=== PATIENT | female | born 1995 | race Caucasian/White ===

== ENCOUNTER → 2020-06-23 14:52 | Outpatient (BNVA) | payer MEDICAID, SELFPAY | PROVIDERS: Visit Provider Advanced Practice Midwife | DX: Z34.90 Encounter for supervision of normal pregnancy, unspecified, unspecified trimester (principal) | CPT/HCPCS: 99211 ==

== ENCOUNTER 2020-06-23 15:41 | Emergency (ER) | payer MEDICAID, SELFPAY ==
[2020-06-23 16:00] VITALS: BP 119/88; PULSE 87; RESP 16; TEMP 37; O2SAT 98; BMI 25.7
[2020-06-23 16:26] VITALS: BP 115/70; PULSE 78; RESP 18; TEMP 36.8; O2SAT 98
--- NOTE | 2020-06-23 16:47 | ED_ITS ---
HPI - Nausea/Vomiting/Diarrhea General Chief complaint: Nausea/Vomiting/Diarrhea Stated complaint: Dehydrated Time Seen by Provider: 06/23/20 16:26 Source: patient Mode of arrival: ambulatory History of Present Illness HPI Narrative: Patient is a 25-year-old female who states she is approximately 4 months , LMP was sometime in January or March, complaining of morning sickness all day long for the last few weeks. States she was able to keep down a piece of bread last night, that was her last meal. She called her OBGYN who recommended she come to the emergency department for fluid and an evaluation. She denies any bleeding at cramping or abdominal pain. She states this is her 12th , she has 5 living children, 3 miscarriages, 3 abortions and and the current . denies fevers chills weakness. Related Data Allergies Allergy/AdvReac Type Severity Reaction Status Date / Time No Known Drug Allergies Allergy Unknown UNKNOWN Unverified 05/19/20 16:20 [NO KNOWN DRUG ALLERGIES] Review of Systems Review of Systems: Yes all other systems are reviewed and are negative [facility] Social History Social History Smoking Status: Never smoker Use of substances other than those prescribed or required for medical reasons: No Advance Directives: No Advance Directives Information Provided: No Physical Exam Vital Signs: Vital Signs: Vital Signs Temp Pulse Resp BP Pulse Ox 06/23/20 16:26 98.2 F 78 18 115/70 98 06/23/20 16:00 98.6 F 87 16 119/88 98 Body Mass Index 25.7 Const: General: cooperative, healthy appearing, comfortable, no acute distress and well developed Orientation/consciousness: patient oriented x3 HENMT: Head: Yes normal to inspection Eyes: General: appearance normal, both eyes and all related structures Neck: Neck: Yes normal visual inspection, Yes full ROM and Yes supple Resp: Effort & Inspection: normal respiratory effort and able to speak in complete sentences GI: Inspection: Yes normal to inspection Palpation (GI): Soft to palpation and nontender Auscultation: normal bowel sounds Skin: General skin exam: no rashes or lesions noted Neuro: General: patient oriented x3 Extrem: General: Yes normal to inspection Psych: Appearance: grossly normal Course Course Course Narrative: patient is a 25-year-old female who is approximately 18 weeks , this is her 12th , [id number], complaining of nausea vomiting and diarrhea. Was able to see 1 piece of bread last night. All of patient's labs are WNL, gave her some Raglan and 1 L IV fluids and she states she feels a lot better and is ready to go home. Her OBGYN did send a prescription in for her for some vitamin B6 and B12. reviewed signs and symptoms which are concerning enough to return to the ER. Patient understands and agrees with plan. MDM - Nausea/Vomiting/Diarrhea Lab Data Result diagrams: 06/23/20 17:05 06/23/20 17:05 Labs: Lab Results 06/23/20 06/23/20 06/23/20 Range/Units 17: 17:05 17:05 WBC 7.5 (4.8-10.8) X10*3/uL RBC 4.57 (4.20-5.50) X10*6/uL Hgb 13.2 (12.0-16.0) g/dl Hct 38.6 (37-47) % MCV 84.5 (80-98) fL MCH 28.9 (27.0-33.0) pg MCHC 34.2 (31.0-35.0) g/dl RDW 12.0 (11.0-16.0) % Plt Count 197 (160-400) X10*3/uL MPV 10.2 (9.4-12.3) fL Immature Gran % (Auto) 0.4 (0.0-0.4) % Neut % (Auto) 74.1 H (45-73) % Lymph % (Auto) 17.1 L (20-40) % Sevier % (Auto) 6.4 (2-11) % Eos % (Auto) 1.6 (0-4) % Baso % (Auto) 0.4 (0-2) % Lymph # (Auto) 1.3 (1.2-4.9) X10*3/uL Sevier # (Auto) 0.5 (0.1-1.2) X10*3/uL Eos # (Auto) 0.1 (0.0-0.4) X10*3/uL Baso # (Auto) 0.0 (0.0-0.2) X10*3/uL Abs Immat Gran (auto) 0.03 (0.00-0.03) X10*3/uL Absolute Neuts (auto) 5.5 (2.0-8.3) X10*3/uL Absolute Nucleated RBC 0.000 (0.0-0.012) X10*3/uL Nucleated RBC % (auto) 0.0 (0.0-0.2) /100WBC Sodium 138 (135-145) mmol/L Potassium 4.1 (3.3-5.1) mmol/l Chloride 104 (96-108) mmol/L Carbon Dioxide 25 (22-29) mmol/L Anion Gap 13 (12-20) BUN 8 L (9-16) mg/dL Creatinine 0.59 (0.5-1.4) mg/dL Estim Creat Clear Calc 140.6 Estimated GFR > 60 Random Glucose 83 (60-115) mg/dL Calcium 9.2 (8.4-10.2) mg/dL Magnesium 1.9 (1.6-2.6) mg/dL Discharge Plan Discharge Clinical Impression: Nausea and vomiting during prior to 22 weeks gestation, test positive Patient Disposition: Home, Self-Care Instructions: Nausea and Vomiting in (ED)
[2020-06-23] MEDS: 0.9 % Sodium Chloride 1,000 ML 999 ML IVCONT (17:07)
[2020-06-23 17:13] LABS: MANUAL DIFF FLAG NO
[2020-06-23 17:14] LABS: Basophils Percent Auto 0.4 % (0-2); Eosinophils Absolute Auto 0.1 X10*3/uL (0.0-0.4); Eosinophils Percent Auto 1.6 % (0-4); Hematocrit 38.6 % (37-47); Hemoglobin 13.2 g/dl (12.0-16.0); Imm Gran Abs Auto 0.03 X10*3/uL (0.00-0.03); Imm Gran Pct Auto 0.4 % (0.0-0.4); Lymphocytes Absolute Auto 1.3 X10*3/uL (1.2-4.9); Lymphocytes Percent Auto 17.1 % (20-40); Mean Corpuscular HGB Conc 34.2 g/dl (31.0-35.0); Mean Corpuscular Hemoglobin 28.9 pg (27.0-33.0); Mean Corpuscular Volume 84.5 fL (80-98); Mean Platelet Volume 10.2 fL (9.4-12.3); Monocytes Absolute Auto 0.5 X10*3/uL (0.1-1.2); Monocytes Percent Auto 6.4 % (2-11); Neutrophils Absolute Auto 5.5 X10*3/uL (2.0-8.3); Neutrophils Percent Auto 74.1 % (45-73); Platelet Count 197 X10*3/uL (160-400); Red Blood Count 4.57 X10*6/uL (4.20-5.50); White Blood Count 7.5 X10*3/uL (4.8-10.8)
[2020-06-23 17:42] LABS: Magnesium 1.9 mg/dL (1.6-2.6)
[2020-06-23 17:43] LABS: Anion Gap 13 (12-20); Blood Urea Nitrogen 8 mg/dL (9-16); Calcium 9.2 mg/dL (8.4-10.2); Carbon Dioxide 25 mmol/L (22-29); Chloride 104 mmol/L (96-108); Creatinine Clr Calc Pharmacy 140.6; Estimated Glomerular Filt Rate > 60; Glucose Random 83 mg/dL (60-115); Potassium 4.1 mmol/l (3.3-5.1); Sodium 138 mmol/L (135-145)
[2020-06-23] MEDS: Metoclopramide HCl 10 MG/2 ML VIAL IVPUSH (17:47)
--- NOTE | 2020-06-23 17:47 | PC.NURSE ---
MEDICATED FOR NAUSEA
[2020-06-23 18:41] VITALS: BP 111/65; PULSE 81; RESP 12; TEMP 36.6
== END 2020-06-23 18:51 | disposition home or self-care (01) ==
PROVIDERS: Physician Assistant; Emergency Provider Emergency Medicine
DX: O21.0 Mild hyperemesis gravidarum (principal); Z3A.22 22 weeks gestation of pregnancy; Z37.9 Outcome of delivery, unspecified
CPT/HCPCS: 36415; 80048; 83735; 84702; 85025; 96361; 96374; 99284; J2765

== ENCOUNTER 2020-06-27 17:20 | Emergency (ER) | payer MEDICAID, SELFPAY ==
[2020-06-27 21:02] VITALS: BP 132/81; PULSE 88; RESP 16; TEMP 37.2; O2SAT 99; BMI 25.7
--- NOTE | 2020-06-27 22:43 | ED.NAVMDI ---
HPI - Nausea/Vomiting/Diarrhea General Chief complaint: Nausea/Vomiting/Diarrhea Stated complaint: vomiting,dehydration Time Seen by Provider: 06/27/20 22:41 History of Present Illness HPI Narrative: Patient is a 25-year-old female G12 T6 with 3 miscarriages and 2 elective terminations. Presented today with having nausea, vomiting. She is currently . Patient claims her last menstrual period is about 3 months ago. Patient denies any fever or chills. Denies any coughing any congestion any upper respiratory symptoms. Denies any vaginal bleeding. Patient is due for an ultrasound on Saturday. Related Data Previous Rx's Medication Instructions Recorded doxylamine-pyridoxine (vit B6) 1 tab PO BID #20 tab 06/28/20 [Diclegis] Allergies Allergy/AdvReac Type Severity Reaction Status Date / Time No Known Drug Allergies Allergy Unknown UNKNOWN Verified 06/27/20 21:06 [NO KNOWN DRUG ALLERGIES] Review of Systems Review of Systems: No fever no chills no cough no congestion or upper respiratory symptoms Constitutional: No Weight loss, No Fever, No Chills, No Night Sweats, No Fatigue, No Malaise ENT/Mouth: No Hearing loss, No Ear Pain, No Nasal Congestion, No Sinus Pain, No Hoarseness, No sore throat, No Rhinorrhea, No Swallowing Difficulty Eyes: No Eye Pain, No Swelling, No Redness, No Foreign Body, No Discharge, No Vision Changes Cardiovascular: No Chest Pain, No SOB, No Dyspnea on Exertion, No Orthopnea, No Edema, No Palpitations Respiratory: No Cough, No Sputum, No Wheezing, No Smoke Exposure, No Dyspnea Gastrointestinal: Positive nausea, vomiting. No diarrhea Genitourinary: no irregular bleeding, No Dysuria, No Urinary Frequency, No Hematuria, No Urinary Incontinence, No Urgency, No Flank Pain, No Urinary Flow Changes, No Hesitancy Musculoskeletal: No joint pain, No Myalgias, No Joint Swelling Skin: No Skin Lesions, No rash Neuro: No Weakness, No Numbness, No Paresthesias, No Loss of Consciousness, No Dizziness, No Headache Psych: No Anxiety/Panic, No Depression, No SI/HI/AH/VH, No Social Issues, Heme/Lymph: No Bruising, No Bleeding,No Lymphadenopathy Endocrine: No Polyuria, No Polydipsia, No Temperature Intolerance [facility] Past Medical History Attestation statement: The following information was validated with the patient. : 12 Para: 6 Total number of abortions (spontaneous and elective): 5 Social History Social History Alcohol intake: never Smoking Status: Never smoker Smoked in Last 30 Days: No Use of substances other than those prescribed or required for medical reasons: No Advance Directives: No Advance Directives Information Provided: Yes Physical Exam Vital Signs: Vital Signs: Vital Signs Temp Pulse Resp BP Pulse Ox 06/28/20 00:00 98.2 F 85 16 115/52 L 99 06/27/20 21:02 98.9 F 88 16 132/81 99 Body Mass Index 25.7 Appearance: Alert. Oriented X3. No acute distress. Eyes: Pupils equal, round and reactive to light. ENT: Pharynx normal. Neck: Normal inspection. Neck supple. No lymph nodes noted. No crepitus CVS: Normal heart rate and rhythm. Pulses normal. Normal S1 and S2 Respiratory: No respiratory distress. Breath sounds normal. No Wheezing. No rales Abdomen: Soft and nontender. No rigidity. No distention. good BS x4 Skin: Skin warm and dry. Normal skin color. Normal skin turgor. Extremities: No lower extremity edema. Neurovascular intact to all extremities. No Lacerations. No Rash Neuro: Oriented X 3. No motor deficit. No sensory deficit. Moving all extermities. No slurred speech MDM - Nausea/Vomiting/Diarrhea MDM Narrative Medical decision making narrative: Patient's is at least 14-16 weeks. Unlikely to be ectopic . Patient was in the emergency department recently for the same. Will give IV fluids. Will check electrolytes. We will monitor carefully. After IV fluid patient's symptom improved dramatically. Now tolerate p.o.. Will discharge patient home. Currently in stable condition. Lab Data Result diagrams: 06/27/20 23:29 06/27/20 23:29 Labs: Lab Results 06/27/20 06/27/20 Range/Units 23:29 23:29 WBC 8.1 (4.8-10.8) X10*3/uL RBC 4.37 (4.20-5.50) X10*6/uL Hgb 12.6 (12.0-16.0) g/dl Hct 36.9 L (37-47) % MCV 84.4 (80-98) fL MCH 28.8 (27.0-33.0) pg MCHC 34.1 (31.0-35.0) g/dl RDW 11.9 (11.0-16.0) % Plt Count 201 (160-400) X10*3/uL MPV 10.2 (9.4-12.3) fL Immature Gran % (Auto) 0.2 (0.0-0.4) % Neut % (Auto) 73.9 H (45-73) % Lymph % (Auto) 18.8 L (20-40) % Dundy % (Auto) 6.0 (2-11) % Eos % (Auto) 0.9 (0-4) % Baso % (Auto) 0.2 (0-2) % Lymph # (Auto) 1.5 (1.2-4.9) X10*3/uL Dundy # (Auto) 0.5 (0.1-1.2) X10*3/uL Eos # (Auto) 0.1 (0.0-0.4) X10*3/uL Baso # (Auto) 0.0 (0.0-0.2) X10*3/uL Abs Immat Gran (auto) 0.02 (0.00-0.03) X10*3/uL Absolute Neuts (auto) 6.0 (2.0-8.3) X10*3/uL Absolute Nucleated RBC 0.000 (0.0-0.012) X10*3/uL Nucleated RBC % (auto) 0.0 (0.0-0.2) /100WBC Sodium 136 (135-145) mmol/L Potassium 3.6 (3.3-5.1) mmol/l Chloride 103 (96-108) mmol/L Carbon Dioxide 23 (22-29) mmol/L Anion Gap 14 (12-20) BUN 9 (9-16) mg/dL Creatinine 0.57 (0.5-1.4) mg/dL Estim Creat Clear Calc 145.9 Estimated GFR > 60 Random Glucose 91 (60-115) mg/dL Calcium 9.2 (8.4-10.2) mg/dL Total Bilirubin 1.0 (0.0-1.0) mg/dL Direct Bilirubin 0.4 (0.0-0.5) mg/dL AST 15 (5-31) U/L ALT 11 (0-31) U/L Alkaline Phosphatase 44 (39-117) U/L Total Protein 6.8 (6.5-8.0) g/dL Albumin 4.5 (3.5-5.0) g/dL Lipase 7 L (8-78) U/L Discharge Plan Discharge Clinical Impression: Hyperemesis gravidarum Patient Disposition: Home, Self-Care Instructions: Hyperemesis Gravidarum (ED) Additional Instructions: Please keep to a bland diet lots of clear liquid. Saltine crackers. Close follow-up with your OBGYN. Prescriptions: New doxylamine-pyridoxine (vit B6) [Diclegis] 10-10 mg tablet,delayed release (DR/EC) 1 tab PO BID Qty: 20 RF: 0 Referrals: Physician,Unknown [Primary Care Provider] - 2 days (Please follow-up with your OBGYN in the next 2 days.)
[2020-06-27] MEDS: 0.9 % Sodium Chloride 1,000 ML 999 ML IVCONT ×2 (23:31→23:32)
[2020-06-27 23:36] LABS: Basophils Percent Auto 0.2 % (0-2); Eosinophils Absolute Auto 0.1 X10*3/uL (0.0-0.4); Eosinophils Percent Auto 0.9 % (0-4); Hematocrit 36.9 % (37-47); Hemoglobin 12.6 g/dl (12.0-16.0); Imm Gran Abs Auto 0.02 X10*3/uL (0.00-0.03); Imm Gran Pct Auto 0.2 % (0.0-0.4); Lymphocytes Absolute Auto 1.5 X10*3/uL (1.2-4.9); Lymphocytes Percent Auto 18.8 % (20-40); MANUAL DIFF FLAG NO; Mean Corpuscular HGB Conc 34.1 g/dl (31.0-35.0); Mean Corpuscular Hemoglobin 28.8 pg (27.0-33.0); Mean Corpuscular Volume 84.4 fL (80-98); Mean Platelet Volume 10.2 fL (9.4-12.3); Monocytes Absolute Auto 0.5 X10*3/uL (0.1-1.2); Neutrophils Percent Auto 73.9 % (45-73); Platelet Count 201 X10*3/uL (160-400); Red Blood Count 4.37 X10*6/uL (4.20-5.50); Red Cell Distribution Width 11.9 % (11.0-16.0); White Blood Count 8.1 X10*3/uL (4.8-10.8)
[2020-06-28] VITALS: BP 115/52; PULSE 85; RESP 16; TEMP 36.8; O2SAT 99
[2020-06-28 00:04] LABS: Alanine Aminotransferase 11 U/L (0-31); Albumin Level 4.5 g/dL (3.5-5.0); Alkaline Phosphatase 44 U/L (39-117); Anion Gap 14 (12-20); Aspartate Amino Transferase 15 U/L (5-31); Bilirubin Direct 0.4 mg/dL (0.0-0.5); Blood Urea Nitrogen 9 mg/dL (9-16); Calcium 9.2 mg/dL (8.4-10.2); Carbon Dioxide 23 mmol/L (22-29); Chloride 103 mmol/L (96-108); Creatinine Clr Calc Pharmacy 145.9; Estimated Glomerular Filt Rate > 60; Glucose Random 91 mg/dL (60-115); Lipase 7 U/L (8-78); Potassium 3.6 mmol/l (3.3-5.1); Sodium 136 mmol/L (135-145); Total Protein 6.8 g/dL (6.5-8.0)
== END 2020-06-28 02:59 | disposition home or self-care (01) ==
PROVIDERS: Emergency Provider Emergency Medicine Emergency Medical Services
DX: O21.0 Mild hyperemesis gravidarum (principal); Z3A.14 14 weeks gestation of pregnancy
CPT/HCPCS: 36415; 80048; 80076; 83690; 85025; 96360; 99284

== ENCOUNTER 2020-07-01 13:22 | Outpatient (REF) | payer MEDICAID, SELFPAY ==
--- NOTE | 2020-07-01 13:32 | US_ITS ---
EXAMINATION: OBSTETRICAL ULTRASOUND, FIRST TRIMESTER HISTORY: 25-year-old with unknown LMP NT screening COMPARISON: 12/01/2019 TECHNIQUE: Real time transabdominal imaging with color and M-mode Doppler. FINDINGS: A single, live IUP CRL of 73.2 mm c/w 13.4wks is noted. Heart Rate: 147 beats per minute. Normal yolk sac seen. NT was 1.3.mm. NB Present The embryo appears sonographically wnl for this GA. Both maternal ovaries are seen and appear normal. GESTATIONAL AGE: 1. Established GA: N/A wks 2. GA from [facility]: 13.4 wks ESTIMATED DATE OF DELIVERY: 1. Established CHANA: N/A 2. CHANA from [facility]: 01/02/2021 US/US OB 1T nuc measure IMPRESSION: 1. A single live IUP 2. CRL consistent with 13.4 weeks 3. NT of 1.3 mm MFM Consultation: I reviewed the ultrasound findings along with significance of NT measurement. The NT of less than 3mm is generally reassuring. However, the sensitivity for T21 detection is only 60%. I reviewed the availability of serum aneuploidy screening which includes cell-free DNA and placental protein based tests. I discussed the sensitivity, false-positive rate, and other limitations associated with each test. I also reviewed the availability of invasive diagnostic tests that are associated small but definite risk of miscarriage. We also reviewed the differences between screening tests and diagnostic tests. After our discussion, she opted for the First trimester screening that is based on cell-free DNA or non-invasive testing (NIPT). The result will be faxed to your office in approximately 7 days. A follow up at 18-20 weeks for survey has been scheduled. Thank you very much for this referral. Majority of this visit was spent reviewing her care and counselling her in face to face time: Time spent 20 min.
== END 2020-07-01 13:23 | disposition home or self-care (01) ==
LOC: HO.US 13:22
PROVIDERS: Visit Provider Advanced Practice Midwife
DX: Z32.01 Encounter for pregnancy test, result positive (principal)
CPT/HCPCS: 76813

== ENCOUNTER → 2020-07-25 14:09 | Outpatient (BNVA) | payer MEDICAID, SELFPAY | PROVIDERS: Visit Provider Advanced Practice Midwife | DX: Z76.89 Persons encountering health services in other specified circumstances (principal) ==

== ENCOUNTER 2020-08-02 12:41 | Outpatient (REF) | payer MEDICAID, SELFPAY ==
[2020-08-02 14:42] LABS: MANUAL DIFF FLAG NO
[2020-08-02 14:44] LABS: Basophils Percent Auto 0.3 % (0-2); Eosinophils Absolute Auto 0.2 X10*3/uL (0.0-0.4); Eosinophils Percent Auto 1.5 % (0-4); Hematocrit 36.2 % (37-47); Hemoglobin 12.4 g/dl (12.0-16.0); Imm Gran Abs Auto 0.08 X10*3/uL (0.00-0.03); Imm Gran Pct Auto 0.8 % (0.0-0.4); Lymphocytes Absolute Auto 1.4 X10*3/uL (1.2-4.9); Lymphocytes Percent Auto 14.6 % (20-40); Mean Corpuscular HGB Conc 34.3 g/dl (31.0-35.0); Mean Corpuscular Volume 87.7 fL (80-98); Mean Platelet Volume 10.5 fL (9.4-12.3); Monocytes Absolute Auto 0.5 X10*3/uL (0.1-1.2); Monocytes Percent Auto 5.3 % (2-11); Neutrophils Absolute Auto 7.7 X10*3/uL (2.0-8.3); Neutrophils Percent Auto 77.5 % (45-73); Platelet Count 221 X10*3/uL (160-400); Red Blood Count 4.13 X10*6/uL (4.20-5.50); Red Cell Distribution Width 13.9 % (11.0-16.0); White Blood Count 9.9 X10*3/uL (4.8-10.8)
[2020-08-02 15:18] LABS: Alanine Aminotransferase 7 U/L (0-31); Albumin Level 4.1 g/dL (3.5-5.0); Alkaline Phosphatase 53 U/L (39-117); Anion Gap 12 (12-20); Aspartate Amino Transferase 10 U/L (5-31); Bilirubin Total 0.7 mg/dL (0.0-1.0); Blood Urea Nitrogen 7 mg/dL (9-16); Carbon Dioxide 24 mmol/L (22-29); Chloride 103 mmol/L (96-108); Estimated Glomerular Filt Rate > 60; Glucose Random 75 mg/dL (60-115); Potassium 4.2 mmol/l (3.3-5.1); Sodium 135 mmol/L (135-145); Total Protein 6.7 g/dL (6.5-8.0); Uric Acid 2.9 mg/dL (2.4-5.7)
[2020-08-02 15:54] LABS: Protein/Creatinine Ratio, Ur 0.09 (<0.2); Total Protein Urine Random 9 mg/dL (<12)
[2020-08-02 15:55] LABS: Amphetamine Screen Urine Not Detected (Not Detect); Barbiturates, Urine Not Detected (Not Detect); Benzodiazepines Screen Urine Not Detected (Not Detect); Cannabinoid Screen Urine Not Detected (Not Detect); Cocaine Screen Urine Not Detected (Not Detect); Opiate Screen Urine Not Detected (Not Detect); Phencyclidine Screen Urine Not Detected (Not Detect)
[2020-08-03 07:53] LABS: HBsAGNum1 0.22 S/CO (0.00-0.99); HIV AB/AG Nonreactive (Nonreactive); HIV Num 1 0.21 S/CO (0.00-0.99); Hepatitis B Surface Antigen Negative (Negative); ~HepC Num1 0.09 S/CO (0.00-0.79); ~Hepatitis C Antibody Nonreactive (Nonreactive)
[2020-08-03 08:56] LABS: Syphilis Screen Nonreactive (Nonreactive)
[2020-08-03 23:08] LABS: Rubella IgG Antibody 2.07 index
[2020-08-08 15:09] LABS: CT PCR NOT DETECTED (Not Detect.); NG PCR NOT DETECTED (Not Detect.)
== END 2020-08-02 12:42 | disposition home or self-care (01) ==
LOC: HO.LAB 12:41
PROVIDERS: Absent Provider Advanced Practice Midwife; Visit Provider Advanced Practice Midwife
DX: O26.899 Other specified pregnancy related conditions, unspecified trimester (principal); K42.9 Umbilical hernia without obstruction or gangrene; Z64.1 Problems related to multiparity
CPT/HCPCS: 36415; 80053; 80307; 84156; 84550; 85025; 86762; 86780; 86787; 86803; 86850; 87086; 87340; 87389; 87491; 87591

== ENCOUNTER 2020-08-12 12:04 | Outpatient (REF) | payer MEDICAID, SELFPAY ==
--- NOTE | 2020-08-12 12:12 | US_ITS ---
EXAMINATION: US OBSTETRICAL CLINICAL INFORMATION: 25-year-old at 19.4 weeks of gestation Suspected anomaly COMPARISON: 07/01/2020 TECHNIQUE: Real-time transabdominal ultrasound was performed using C1-5 megahertz transducer. FINDINGS: A single, active, fetus is seen in vertex presentation. The placenta is anterior without previa, and the amniotic fluid volume is wnl. MEASUREMENTS: 1. Biparietal Diameter: 4.7 cm; 20.2 wks 2. Occipital Frontal Diameter: 6.3 cm 3. Head Circumference: 17.5 cm; 20.1 wks 4. Abdominal Circumference: 15.7 cm; 20.6 wks 5. Femur Length: 3.2 cm; 20.0 wks 6. Humerus Length: 2.99 cm; 19.6 wks 7. Tibia Length: 2.8 cm; 20.1 wks 8. Ulna Length: 2.8 cm; 20.1 wks 9. Lateral ventricle: 0.63 cm 10. Cerebellum: 1.99 cm; 20.2 wks 11. Cisterna Magna: 0.38 cm 12. Nuchal Fold: 2.93 mm 13. Heart Rate: 135 beats per minute Rt ovary: normal Lt ovary: normal Cervical length 4.2 cm on T/A. GESTATIONAL AGE: 1. Established GA: 19.4 wks 2. GA from [facility]: 20.3 wks ESTIMATED DATE OF DELIVERY: 1. Established CHANA: 01/02/2021 2. CHANA from [facility]: 12/27/2020 ANATOMY: Isolated EIF. The visualized anatomy includes but not limited to: 1. Cranium: Normal 2. Intracranial anatomy: cavum septum pellucidi, lateral ventricles, choroid plexus, cerebellum, posterior fossa, third and fourth ventricles. 3. face: orbits, lip/palate, profile, nasal bone 4. Heart: four-chamber view of the heart, ventricular septum, foramen ovale, pulmonary vein, left and right outflow tracts, three-vessel view, 3 vessel trachea view, aortic and ductal arches, situs.. 5. Diaphragm: Normal 6. Abdominal wall: Normal 7. Cord Insertion: Normal 8. Spine: Cervical, thoracic, lumbar, sacral. 9. Stomach: Normal size and shape 10. Right Kidney: Normal 11. Left Kidney: Normal 12. 3 vessel cord: Normal 13. Upper extremity: Open hands, fifth digit. 14. Lower extremity: Tibia, fibula, bilateral feet. 15. Bladder: Normal 16. Genitalia: Male, patient aware US/US OB /maternal detail IMPRESSION: 1. Single, living, intrauterine with appropriate biometry. 2. Isolated EIF. Otherwise normal survey. DISCUSSION: I reviewed the association between Down syndrome and EIF. The likelihood ratio is 1:2. In the setting of low risk NIPT, isolated EIF is considered a normal variant. She had the low risk N IPT at approximately 13 weeks of gestation. Aside from its association with Down syndrome, the clinical significance of EIF is unclear. We discussed the limitations of ultrasound in diagnosing aneuploidy and other congenital abnormalities. I reviewed the differences between screening test and diagnostic test. Amniocentesis was discussed and declined. She was informed that the baseline incidence of congenital abnormalities is approximately 3-5%. Not all these conditions are diagnosable in utero. RECOMMENDATIONS: 1. Further ultrasound has not been scheduled today. f/u as clinically indicated. Thank you for allowing me to participate in her care. Visiting time 40 minutes. Majority of this visit was spent reviewing and discussing her care.
== END 2020-08-12 12:05 | disposition home or self-care (01) ==
LOC: HO.US 12:04
PROVIDERS: Visit Provider Advanced Practice Midwife
DX: Z34.90 Encounter for supervision of normal pregnancy, unspecified, unspecified trimester (principal); Z36.3 Encounter for antenatal screening for malformations; Z3A.19 19 weeks gestation of pregnancy
CPT/HCPCS: 76811

== ENCOUNTER → 2020-09-09 11:23 | Outpatient (BNVA) | payer MEDICAID, SELFPAY | PROVIDERS: Visit Provider Advanced Practice Midwife | DX: Z76.89 Persons encountering health services in other specified circumstances (principal) | CPT/HCPCS: 99212 ==

== ENCOUNTER → 2020-10-12 11:07 | Outpatient (BNVA) | payer MEDICAID, SELFPAY | PROVIDERS: Visit Provider Advanced Practice Midwife | DX: Z34.80 Encounter for supervision of other normal pregnancy, unspecified trimester (principal); K42.9 Umbilical hernia without obstruction or gangrene; Z64.1 Problems related to multiparity | CPT/HCPCS: 81003; 90471; 90715; 99212 ==

== ENCOUNTER 2020-11-22 12:57 | Outpatient (REF) | payer MEDICAID, SELFPAY ==
[2020-11-22 15:28] LABS: Hematocrit 35.8 % (37-47); Hemoglobin 11.8 g/dl (12.0-16.0); Mean Corpuscular Hemoglobin 29.2 pg (27.0-33.0); Mean Corpuscular Volume 88.6 fL (80-98); Mean Platelet Volume 11.8 fL (9.4-12.3); Platelet Count 174 X10*3/uL (160-400); Red Blood Count 4.04 X10*6/uL (4.20-5.50); Red Cell Distribution Width 12.9 % (11.0-16.0); White Blood Count 9.4 X10*3/uL (4.8-10.8)
[2020-11-22 15:31] LABS: Glucose 1 Hour PP 50gm Dose 148 mg/dL (60-140)
[2020-11-23 08:37] LABS: Syphilis Screen Nonreactive (Nonreactive)
[2020-11-23 08:38] LABS: HIV AB/AG Nonreactive (Nonreactive); HIV Num 1 0.06 S/CO (0.00-0.99)
== END 2020-11-22 12:58 | disposition home or self-care (01) ==
LOC: HO.LAB 12:57
PROVIDERS: Visit Provider Advanced Practice Midwife
DX: O09.43 Supervision of pregnancy with grand multiparity, third trimester (principal); Z3A.34 34 weeks gestation of pregnancy
CPT/HCPCS: 36415; 85027; 86780; 87389; 99212

== ENCOUNTER → 2020-12-06 15:23 | Outpatient (BNVA) | payer MEDICAID, SELFPAY | PROVIDERS: Visit Provider Obstetrics & Gynecology | DX: O99.810 Abnormal glucose complicating pregnancy (principal) | CPT/HCPCS: 99212 ==

== ENCOUNTER 2020-12-13 11:25 | Outpatient (REF) | payer MEDICAID, SELFPAY ==
[2020-12-13 12:44] LABS: Glucose Fasting 84 mg/dL (60-99)
[2020-12-13 13:47] LABS: Glucose 1 Hour 156 mg/dL
[2020-12-13 15:27] LABS: Glucose 2 Hour 127 mg/dL
[2020-12-13 15:28] LABS: Glucose 3 Hour 147 mg/dL
== END 2020-12-13 11:26 | disposition home or self-care (01) ==
LOC: HO.LAB 11:25
PROVIDERS: Visit Provider Obstetrics & Gynecology
DX: O09.293 Supervision of pregnancy with other poor reproductive or obstetric history, third trimester (principal); O99.613 Diseases of the digestive system complicating pregnancy, third trimester; K42.9 Umbilical hernia without obstruction or gangrene; Z3A.37 37 weeks gestation of pregnancy
CPT/HCPCS: 36415; 82951; 87081; 87147; 99212

== ENCOUNTER → 2020-12-22 14:46 | Outpatient (BNVA) | payer MEDICAID, SELFPAY | PROVIDERS: Visit Provider Obstetrics & Gynecology | DX: O09.43 Supervision of pregnancy with grand multiparity, third trimester (principal); O26.843 Uterine size-date discrepancy, third trimester; Z3A.38 38 weeks gestation of pregnancy | CPT/HCPCS: 99212 ==

== ENCOUNTER → 2021-02-09 14:06 | Outpatient (BNVA) | payer MEDICAID, SELFPAY | PROVIDERS: Visit Provider Surgery | DX: K42.9 Umbilical hernia without obstruction or gangrene (principal) | CPT/HCPCS: 99212 ==

== ENCOUNTER 2021-02-22 10:03 | Day surgery (SDC) | payer MEDICAID, SELFPAY ==
--- NOTE | 2021-02-20 14:42 | HO.ANESPROP2 ---
HPI - Anesthesia Eval Consult details Narrative: 26yo F for Hernia Repair Umbilical with Mesh h/o umbilical hernia repair 2017 [facility] Active Problems Active Problems: All Active Problems (Updated 12/22/20 @ 15:30 by Shant Joseph MD) Suspected macroscopic fetus (Acute) Grand multipara (Acute) Umbilical hernia (Acute) (Acute) test positive (Acute) Past Medical History Medical History Grand multipara Umbilical hernia Family History Family History Mother No problems noted. Father Hx of diabetes mellitus Brother Hx of diabetes mellitus Maternal Grandfather No problems noted. Maternal Grandmother No problems noted. Paternal Grandfather No problems noted. Paternal Grandmother No problems noted. Surgical History Surgical History (Updated 02/22/21 @ 10:09 by Joan Bruno RN) H/O umbilical hernia repair (~2017) Hx of hand surgery Social History Social History Household Members: Family and Children Alcohol intake: never Patient Tobacco Use Status: Former Tobacco user Quit Date: 10 yrs ago Use of substances other than those prescribed or required for medical reasons: No Are you DNR?: No Advance Directives: No Advance Directives Information Provided: Yes service: No Current occupational status: unemployed Meds Allergies Allergy/AdvReac Type Severity Reaction Status Date / Time No Known Drug Allergies Allergy Unknown UNKNOWN Verified 02/22/21 10:09 [NO KNOWN DRUG ALLERGIES] Exam Exam Date and Time: February 20, 2021 144 Assessment and Plan Assessment Anesthesia Assessment: Chart Reviewed
[2021-02-22] VITALS (9 sets, daily range): BP systolic 106–119; BP diastolic 65–96; PULSE 66–96; RESP 14–20; TEMP 36.3–37.3; O2SAT 94–99; BMI 25.0
[2021-02-22 10:31] LABS: UPreg QC Valid YES; Urine Pregnancy NEGATIVE (NEGATIVE)
--- NOTE | 2021-02-22 10:34 | MHC.SHP ---
Pre-Procedural Eval Section A The patient is an INPATIENT: No Changes since office visit: Yes Patient answered all questions; No Cold of Flu in the past 2 weeks, No New Medical Problems and No Changes in Medication The History & Physical has been completed within 30 days and I have reviewed it.: Yes Section B Chief Complaint: Umbilical Hernia Allergies: Allergies Allergy/AdvReac Type Severity Reaction Status Date / Time No Known Drug Allergies Allergy Unknown UNKNOWN Verified 02/22/21 10:09 [NO KNOWN DRUG ALLERGIES] Plan Diagnosis/Plan: Unchanged I have reviewed the history and physical and performed a pertinent physical examination on my patient. No changes have occurred unless specified.
[2021-02-22] MEDS: Lactated Ringers 1,000 ML 100 ML IVCONT (10:38)
--- NOTE | 2021-02-22 12:49 | P.CONAN_ITS ---
[facility] Active Problems Active Problems: All Active Problems (Updated 12/22/20 @ 15:30 by Shant Joseph MD) test positive (Acute) (Acute) Suspected macroscopic fetus (Acute) Grand multipara (Acute) Umbilical hernia (Acute) Past Medical History Medical History Grand multipara Umbilical hernia Family History Family History Mother No problems noted. Father Hx of diabetes mellitus Brother Hx of diabetes mellitus Maternal Grandfather No problems noted. Maternal Grandmother No problems noted. Paternal Grandfather No problems noted. Paternal Grandmother No problems noted. Family history of problems with anesthesia: No Surgical History Surgical History (Updated 02/22/21 @ 10:09 by Joan Bruno RN) H/O umbilical hernia repair (~2016) Hx of hand surgery History of Problems with Anesthesia: No Social History Social History Household Members: Family and Children Alcohol intake: never Patient Tobacco Use Status: Former Tobacco user Quit Date: 10 yrs ago Use of substances other than those prescribed or required for medical reasons: No Are you DNR?: No Advance Directives: No Advance Directives Information Provided: Yes service: No Current occupational status: unemployed Meds Allergies Allergy/AdvReac Type Severity Reaction Status Date / Time No Known Drug Allergies Allergy Unknown UNKNOWN Verified 02/22/21 10:09 [NO KNOWN DRUG ALLERGIES] Active Medications: Current Medications Generic Name Dose Route Start Last Admin Trade Name Hughq PRN Reason Stop Dose Admin Lactated Ringer's 1,000 mls @ 100 mls/hr 02/22/21 10:15 02/22/21 10:38 Lr IVCONT 100 mls/hr .Q10H JAIRO Administration Home Medications Medication Instructions Recorded Confirmed Last Taken Type No Known Home Meds 02/22/21 02/22/21 Unknown History Exam Exam Date and Time: February 22, 2021 1249 Height,Weight and Vital Signs: Height 5 ft 5 in Weight 68.039 kg Last Vital Signs Temp 97.4 F 02/22/21 10:16 Pulse 95 02/22/21 10:16 Resp 15 02/22/21 10:16 BP 107/75 02/22/21 10:16 Pulse Ox 98 02/22/21 10:16 Pertinent Lab Results Pertinent Lab Results: Laboratory Tests 02/22/21 10:15 Urine Test NEGATIVE Airway Mallampati Class: I TM Dist: >3cm Neck ROM: Full Loose/Missing/Broken Teeth: No Assessment and Plan Assessment Anesthesia Assessment: Anesthesia Plan Discussed and Chart Reviewed Final Anesthetic Review NPO: Yes ASA Class: I Final Preanesthetic Review: No Changes in Pt Med Stat, Meds/Allgs Chart Reviewed, Consent Obtained/Reviewed and Anes Risks/Benef Reviewed Patient Risk: Low Procedure Risk: Low Anesthetic Plan Anesthetic Plan: GA and Agree w/ Assess. and Plan Disposition: Standard PACU
--- NOTE | 2021-02-22 13:29 | P.OP_ITS ---
Operative Note Operative Note Date of Service: 02/22/21 Narrative: Preoperative diagnosis: Umbilical hernia Postoperative diagnosis: Same Procedure: Repair of umbilical hernia with mesh Surgeon: Paramjit Garcia MD [place] Attacher: No physician Anesthesia: General LMA Indications for procedure: 26-year-old female with enlarging umbilical hernia Operative findings: Umbilical hernia repaired with a 6.4 cm round Ventralex mesh Specimen: None Estimated blood loss: 5 mL Complications: None Procedure details: Patient was brought to the OR and placed in a supine position. After administering general anesthesia the patient's abdomen was prepped with ChloraPrep and draped in a sterile fashion. Surgical time-out was called the consent confirmed. Patient received preoperative antibiotics and Venodyne boots were in place. Local anesthesia consisting of 0.25% Sensorcaine with epinephrine was infiltrated in the midline around the umbilicus. Curvilinear incision was then made with a scalpel in the midline down through the subcutaneous tissue and up to the hernia sac. The hernia sac was then dissected down to the fascial edge. The fascial edge was incised using electrocautery. Hernia sac was then reduced into the abdominal cavity. A preperitoneal space was then created below the fascia using both blunt and sharp dissection. Hemostasis was assured using electrocautery. A 6.4 cm round Ventralex mesh was then obtained. This was deployed in the preperitoneal space. The mesh was secured in place using 1 Tycron sutures. Fascia was then closed over the mesh using [id number] 1 Tycron sutures. Wounds were irrigated and suctioned dry. Skin was attached to the fascia using a 3-0 Polysorb suture. Dermis was reapproximated using interrupted 3-0 Polysorb sutures. Skin was closed using a running subcuticular 4-0 Polysorb suture. Steri-Strips, 2 x 2 gauze were then applied. The patient tolerated the procedure well. Sponge, instrument, and needle counts reported as correct. Patient was transferred to PACU in stable condition.
[2021-02-22] MEDS: fentaNYL citrate/PF 100 MCG/2 ML VIAL 75 MCG IVPUSH (13:35)
[2021-02-22] MEDS: oxyCODONE HCl Immed Release 5 MG TABLET PO (13:37)
[2021-02-22] MEDS: fentaNYL citrate/PF 100 MCG/2 ML VIAL 25 MCG IVPUSH ×3 (13:40→14:00)
[2021-02-22] MEDS: Acetaminophen 325 MG TABLET 650 MG PO (13:58)
== END 2021-02-22 14:28 | disposition home or self-care (01) ==
PROVIDERS: Nurse Practitioner; Visit Provider Surgery
PROC: (CPT 49585; principal; 2021-02-22 13:00)
DX: K42.9 Umbilical hernia without obstruction or gangrene (principal); Z87.891 Personal history of nicotine dependence
CPT/HCPCS: 49585; 81025; C1781; J0690; J1100; J1885; J2405; J3010

== ENCOUNTER → 2021-03-03 10:01 | Outpatient (BNVA) | payer MEDICAID, SELFPAY | PROVIDERS: PCP Family Medicine; Visit Provider Surgery | DX: Z48.815 Encounter for surgical aftercare following surgery on the digestive system (principal); Z87.19 Personal history of other diseases of the digestive system | CPT/HCPCS: 99212 ==

== ENCOUNTER 2021-06-27 11:45 | Outpatient (REF) | payer MEDICAID, SELFPAY ==
[2021-06-27 17:35] LABS: CT PCR NOT DETECTED (Not Detect.); NG PCR NOT DETECTED (Not Detect.)
[2021-06-28 08:30] LABS: BV Int Neg Control Negative (Negative); BV Int Pos Control Positive (Positive)
== END 2021-06-27 11:46 | disposition home or self-care (01) ==
LOC: HO.LAB 11:45
PROVIDERS: PCP Registered Nurse Community Health; Visit Provider Advanced Practice Midwife
DX: N89.8 Other specified noninflammatory disorders of vagina (principal); R10.2 Pelvic and perineal pain; M54.9 Dorsalgia, unspecified; Z87.891 Personal history of nicotine dependence
CPT/HCPCS: 81003; 81025; 87480; 87491; 87510; 87591; 87660; 99212

== ENCOUNTER 2021-06-27 12:33 | Emergency (ER) | payer MEDICAID, SELFPAY ==
[2021-06-27 13:05] VITALS: BP 119/77; PULSE 68; RESP 16; TEMP 36.2; O2SAT 98; BMI 29.4
--- NOTE | 2021-06-27 13:22 | ED.GENADULT ---
HPI - General Adult General Chief complaint: Back Pain/Injury Stated complaint: back pain Time Seen by Provider: 06/27/21 13:21 Source: patient Mode of arrival: ambulatory Limitations: no limitations History of Present Illness HPI narrative: 26 y/o female s/p umbilical hernia repair and then revision in January 2021 presents to the ER with severe middle and lower back pain that has been happening since her surgery in January. He reports the pain has been progressively worse. She states the pain is in her middle and lower back and radiates through her into the front of her middle upper abdomen and lower abdomen. She took an extra oxycodone that she had left over from her surgery with some brief improvement. She has no nausea, vomiting, diarrhea, urinary symptoms. Denies chance of . Denies any recent injury. She is tearful on arrival. MD complaint: back pain Onset (ago): month(s) Location: back Radiation: abdomen Severity: severe Severity scale (1-10): 10 Quality: aching and sharp Pain Consistency: constant Relieving factors: none Exacerbating factors: none Associated symptoms: denies other symptoms Treatments prior to arrival: none Related Data Previous Rx's Medication Instructions Recorded cyclobenzaprine 10 mg tablet 10 mg PO TID PRN #12 tab 06/27/21 ibuprofen 600 mg tablet 600 mg PO Q8H PRN #20 tab 06/27/21 lidocaine 5 % topical patch 1 patch TOPICAL DAILY #15 ea 06/27/21 Allergies Allergy/AdvReac Type Severity Reaction Status Date / Time No Known Drug Allergies Allergy Unknown UNKNOWN Verified 06/27/21 11:50 [NO KNOWN DRUG ALLERGIES] Review of Systems Review of Systems: Constitutional: No Fever, No Chills ENT/Mouth: No sore throat, No Rhinorrhea Cardiovascular: No Chest Pain, No SOB Respiratory: No Cough, No Sputum Gastrointestinal: No Nausea, No Vomiting, No Diarrhea, + abdominal Pain, No Hematochezia, No Melena Genitourinary: No Dysuria, No Urinary Frequency, No Hematuria, No vaginal discharge Musculoskeletal: + joint pain, + Myalgias Skin: No Skin Lesions, No rash Neuro: No Weakness, No Numbness, No Dizziness, No Headache Psych: + Anxiety/Panic, No Depression Heme/Lymph: No Bruising, No Lymphadenopathy PMFSH Past Medical History Medical History (Updated 06/27/21 @ 16:02 by NICK Hdez) Grand multipara Umbilical hernia Surgical History H/O umbilical hernia repair (~2017) Hx of hand surgery Family History Family History Mother No problems noted. Father Hx of diabetes mellitus Brother Hx of diabetes mellitus Maternal Grandfather No problems noted. Maternal Grandmother No problems noted. Paternal Grandfather No problems noted. Paternal Grandmother No problems noted. Social History Social History Household Members: Family and Children Alcohol intake: never Patient Tobacco Use Status: Former Tobacco user Quit Date: 10 yrs ago Advance Directives: No Patient : No service: No Current occupational status: unemployed Physical Exam Vital Signs: Vital Signs: Last Vital Signs Temp 97.1 F 06/27/21 13:05 Pulse 68 06/27/21 13:05 Resp 18 06/27/21 15:12 BP 119/77 06/27/21 13:05 Pulse Ox 98 06/27/21 13:05 Body Mass Index 29.4 Appearance: Alert. Oriented X3. Appears uncomfortable, crying Eyes: Pupils equal, round and reactive to light. ENT: Pharynx normal. Neck: Normal inspection. Neck supple. CVS: Normal heart rate and rhythm. Pulses normal. Respiratory: No respiratory distress. Breath sounds normal. Abdomen: Soft with mild tenderness of epigastric area and suprapubic area. no palpable umbilical hernia. normal +BS x4 Back: Normal inspection. Tenderness of the soft tissues of the entire thoracic and lumbar areas. No spinal tenderness. Pain with spinal flexion. Skin: Skin warm and dry. Normal skin color. Normal skin turgor. No rashes. Extremities: No lower extremity edema. Neuro: Oriented X 3. No motor deficit. No sensory deficit. Course Course Course Narrative: 18-year-old female presenting with acute on chronic back pain, that radiates through her to her abdomen. She states the pain has been there since January but recently got a lot worse. It is constant in nature and sharp. She has no nausea, vomiting, diarrhea, fever, chills, urinary symptoms. No palpable hernia on exam. Will check basic lab workup, urinalysis, and give her dose of pain medications and reassess. Her exam is consistent with muscular pain and spasm. Reevaluation(s) Reevaluation #1: Labs and UA are unremarkable. Pain is improved. She is tolerating PO. She is stable for discharge home with treatment for muscular back pain. Patient encouarged to follow up with her PCP for further evaluation and possible PT referral. Medical Decision Making Lab Data Result diagrams: 06/27/21 13:58 06/27/21 13:58 Labs: Lab Results 06/27/21 06/27/21 06/27/21 Range/Units 13:33 13:33 13:58 WBC 6.6 (4.8-10.8) X10*3/uL RBC 4.37 (4.20-5.50) X10*6/uL Hgb 12.6 (12.0-16.0) g/dl Hct 36.9 L (37-47) % MCV 84.4 (80-98) fL MCH 28.8 (27.0-33.0) pg MCHC 34.1 (31.0-35.0) g/dl RDW 12.0 (11.0-16.0) % Plt Count 224 D (160-400) X10*3/uL MPV 10.7 (9.4-12.3) fL Immature Gran % (Auto) 0.3 (0.0-0.4) % Neut % (Auto) 65.9 (45-73) % Lymph % (Auto) 23.6 (20-40) % [place] % (Auto) 8.1 (2-11) % Eos % (Auto) 1.8 (0-4) % Baso % (Auto) 0.3 (0-2) % Lymph # (Auto) 1.6 (1.2-4.9) X10*3/uL [place] # (Auto) 0.5 (0.1-1.2) X10*3/uL Eos # (Auto) 0.1 (0.0-0.4) X10*3/uL Baso # (Auto) 0.0 (0.0-0.2) X10*3/uL Abs Immat Gran (auto) 0.02 (0.00-0.03) X10*3/uL Absolute Neuts (auto) 4.3 (2.0-8.3) X10*3/uL Absolute Nucleated RBC 0.000 (0.0-0.012) X10*3/uL Nucleated RBC % (auto) 0.0 (0.0-0.2) /100WBC Sodium (135-145) mmol/L Potassium (3.3-5.1) mmol/L Chloride (96-108) mmol/L Carbon Dioxide (22-29) mmol/L Anion Gap (12-20) BUN (9-16) mg/dL Creatinine (0.5-1.4) mg/dL Estim Creat Clear Calc Estimated GFR Random Glucose (60-115) mg/dL Calcium (8.4-10.2) mg/dL Magnesium (1.6-2.6) mg/dL Total Bilirubin (0.0-1.0) mg/dL Direct Bilirubin (0.0-0.5) mg/dL AST (5-31) U/L ALT (0-31) U/L Alkaline Phosphatase (39-117) U/L Total Protein (6.5-8.0) g/dL Albumin (3.5-5.0) g/dL Lipase (8-78) U/L Urine Color YELLOW Urine Appearance CLEAR Urine pH 6.0 (5.0-8.0) Ur Specific [place] 1.025 (1.005-1.025) Urine Protein NEG (NEG-TRACE) MG/DL Urine Glucose (UA) NEG (NEG) MG/DL Urine Ketones NEG (NEG) MG/DL Urine Blood NEG (NEG) Urine Nitrite NEG (NEG) Ur Leukocyte Esterase NEG (NEG) Urine Test NEGATIVE (NEGATIVE) 06/27/21 Range/Units 13:58 WBC (4.8-10.8) X10*3/uL RBC (4.20-5.50) X10*6/uL Hgb (12.0-16.0) g/dl Hct (37-47) % MCV (80-98) fL MCH (27.0-33.0) pg MCHC (31.0-35.0) g/dl RDW (11.0-16.0) % Plt Count (160-400) X10*3/uL MPV (9.4-12.3) fL Immature Gran % (Auto) (0.0-0.4) % Neut % (Auto) (45-73) % Lymph % (Auto) (20-40) % [place] % (Auto) (2-11) % Eos % (Auto) (0-4) % Baso % (Auto) (0-2) % Lymph # (Auto) (1.2-4.9) X10*3/uL [place] # (Auto) (0.1-1.2) X10*3/uL Eos # (Auto) (0.0-0.4) X10*3/uL Baso # (Auto) (0.0-0.2) X10*3/uL Abs Immat Gran (auto) (0.00-0.03) X10*3/uL Absolute Neuts (auto) (2.0-8.3) X10*3/uL Absolute Nucleated RBC (0.0-0.012) X10*3/uL Nucleated RBC % (auto) (0.0-0.2) /100WBC Sodium 140 (135-145) mmol/L Potassium 4.1 (3.3-5.1) mmol/L Chloride 107 (96-108) mmol/L Carbon Dioxide 25 (22-29) mmol/L Anion Gap 12 (12-20) BUN 9 (9-16) mg/dL Creatinine 0.69 (0.5-1.4) mg/dL Estim Creat Clear Calc 127.1 Estimated GFR > 60 Random Glucose 97 (60-115) mg/dL Calcium 9.3 (8.4-10.2) mg/dL Magnesium 2.0 (1.6-2.6) mg/dL Total Bilirubin 0.5 (0.0-1.0) mg/dL Direct Bilirubin 0.2 (0.0-0.5) mg/dL AST 16 D (5-31) U/L ALT 13 (0-31) U/L Alkaline Phosphatase 65 D (39-117) U/L Total Protein 7.0 (6.5-8.0) g/dL Albumin 4.6 (3.5-5.0) g/dL Lipase 13 (8-78) U/L Urine Color Urine Appearance Urine pH (5.0-8.0) Ur Specific [place] (1.005-1.025) Urine Protein (NEG-TRACE) MG/DL Urine Glucose (UA) (NEG) MG/DL Urine Ketones (NEG) MG/DL Urine Blood (NEG) Urine Nitrite (NEG) Ur Leukocyte Esterase (NEG) Urine Test (NEGATIVE) Critical Care Time Critical Care Time Critical Care Time: No Discharge Plan Discharge Clinical Impression: Muscle spasm of back Patient Disposition: Home, Self-Care Instructions: Muscle Spasm (ED), Back Pain (ED) Additional Instructions: Your lab workup and urine tests were normal. Your pain is most likely due to muscle strain and spasm. Rest. No strenuous activity. No bending, lifting or twisting. Use ice several times per day for 20 minutes at a time for the next 48 hours and then change to heat. Take medications as prescribed to help with pain and discomfort. Follow up with your Primary Care Doctor this week. If your pain worsens, if you develop new numbness, tingling, weakness, loss of function or incontinence call 911 or come back to the ER right away for evaluation. Prescriptions: New cyclobenzaprine 10 mg tablet 10 mg PO TID PRN (Reason: muscle spasm) Qty: 12 RF: 0 ibuprofen 600 mg tablet 600 mg PO Q8H PRN (Reason: pain) Qty: 20 RF: 0 lidocaine 5 % adhesive patch,medicated 1 patch topical DAILY Qty: 15 RF: 0 Referrals: [facility] [Primary Care Provider] - 2 days Interventions: ED Discharge Assessment Last Done: 06/27/21 16:10 Discharge Date/Time: 06/27/21 16:11
[2021-06-27 13:47] LABS: Appearance Urine CLEAR; Color Urine YELLOW; Glucose Urine UA NEG (NEG); Leukocyte Esterase Urine NEG (NEG); Nitrite Urine NEG (NEG); Specific Gravity - Urine 1.025 (1.005-1.025); Urine Blood NEG (NEG); Urine Ketones NEG (NEG); Urine Protein NEG (NEG-TRACE)
[2021-06-27 13:48] LABS: UPreg QC Valid YES; Urine Pregnancy NEGATIVE (NEGATIVE)
[2021-06-27] MEDS: HYDROcodone Bit/Acetam 5/325 TABLET 1 TAB PO (14:01)
[2021-06-27 14:12] LABS: MANUAL DIFF FLAG NO
[2021-06-27 14:16] LABS: Basophils Percent Auto 0.3 % (0-2); Eosinophils Absolute Auto 0.1 X10*3/uL (0.0-0.4); Eosinophils Percent Auto 1.8 % (0-4); Hematocrit 36.9 % (37-47); Hemoglobin 12.6 g/dl (12.0-16.0); Imm Gran Abs Auto 0.02 X10*3/uL (0.00-0.03); Imm Gran Pct Auto 0.3 % (0.0-0.4); Lymphocytes Absolute Auto 1.6 X10*3/uL (1.2-4.9); Lymphocytes Percent Auto 23.6 % (20-40); Mean Corpuscular HGB Conc 34.1 g/dl (31.0-35.0); Mean Corpuscular Hemoglobin 28.8 pg (27.0-33.0); Mean Corpuscular Volume 84.4 fL (80-98); Mean Platelet Volume 10.7 fL (9.4-12.3); Monocytes Absolute Auto 0.5 X10*3/uL (0.1-1.2); Monocytes Percent Auto 8.1 % (2-11); Neutrophils Absolute Auto 4.3 X10*3/uL (2.0-8.3); Neutrophils Percent Auto 65.9 % (45-73); Platelet Count 224 X10*3/uL (160-400); Red Blood Count 4.37 X10*6/uL (4.20-5.50); White Blood Count 6.6 X10*3/uL (4.8-10.8)
[2021-06-27 14:35] LABS: Alanine Aminotransferase 13 U/L (0-31); Albumin Level 4.6 g/dL (3.5-5.0); Alkaline Phosphatase 65 U/L (39-117); Anion Gap 12 (12-20); Aspartate Amino Transferase 16 U/L (5-31); Bilirubin Direct 0.2 mg/dL (0.0-0.5); Bilirubin Total 0.5 mg/dL (0.0-1.0); Blood Urea Nitrogen 9 mg/dL (9-16); Calcium 9.3 mg/dL (8.4-10.2); Carbon Dioxide 25 mmol/L (22-29); Chloride 107 mmol/L (96-108); Creatinine Clr Calc Pharmacy 127.1; Estimated Glomerular Filt Rate > 60; Glucose Random 97 mg/dL (60-115); Lipase 13 U/L (8-78); Potassium 4.1 mmol/L (3.3-5.1); Sodium 140 mmol/L (135-145)
[2021-06-27 15:12] VITALS: RESP 18
[2021-06-27] MEDS: Lidocaine 4 % Patch ADH..PATCH 1 PATCH TRANSDERMA (15:12)
[2021-06-27] MEDS: Cyclobenzaprine HCl 10 MG TABLET PO (15:12)
== END 2021-06-27 16:11 | disposition home or self-care (01) ==
PROVIDERS: Physician Assistant; Emergency Provider Emergency Medicine
DX: M62.830 Muscle spasm of back (principal); M54.50 Low back pain, unspecified
CPT/HCPCS: 36415; 80048; 80076; 81003; 81025; 83690; 83735; 85025; 99283; 99284

== ENCOUNTER → 2021-10-26 15:54 | Outpatient (BNVA) | payer MEDICAID, SELFPAY | PROVIDERS: Visit Provider Obstetrics & Gynecology | DX: Z30.09 Encounter for other general counseling and advice on contraception (principal) | CPT/HCPCS: 99212 ==

== ENCOUNTER 2021-12-12 20:07 | Emergency (ER) | payer MEDICAID, SELFPAY ==
--- NOTE | ~2021-12-12 | XR_ITS ---
EXAMINATION: XR CHEST CLINICAL INFORMATION: Chest pain COMPARISON: None TECHNIQUE: Frontal view of the chest was obtained. FINDINGS: No significant abnormality is noted involving the heart, lungs, mediastinum, bony thorax or soft tissues. XR/XR chest 1V IMPRESSION: Unremarkable examination.
--- NOTE | 2021-12-12 20:10 | ECG_ITS ---
Test Reason : CHEST PAIN Blood Pressure : / mmHG Vent. Rate : 076 BPM Atrial Rate : 076 BPM P-R Int : 148 ms QRS Dur : 076 ms QT Int : 372 ms P-R-T Axes : 042 029 019 degrees QTc Int : 418 ms Normal sinus rhythm Normal ECG No previous ECGs available Referred By: Generic ED Physician Electronically Signed By:Darrick Cervantes
[2021-12-12 20:30] LABS: MANUAL DIFF FLAG NO
[2021-12-12 20:35] LABS: Basophils Percent Auto 0.4 % (0-2); Eosinophils Absolute Auto 0.3 X10*3/uL (0.0-0.4); Eosinophils Percent Auto 3.8 % (0-4); Hematocrit 37.8 % (37.0-47.0); Hemoglobin 12.8 g/dl (12.0-16.0); Imm Gran Abs Auto 0.02 X10*3/uL (0.00-0.03); Imm Gran Pct Auto 0.3 % (0.0-0.4); Lymphocytes Absolute Auto 2.2 X10*3/uL (1.2-4.9); Lymphocytes Percent Auto 30.8 % (20-40); Mean Corpuscular HGB Conc 33.9 g/dl (31.0-35.0); Mean Corpuscular Volume 85.7 fL (80.0-98.0); Mean Platelet Volume 10.6 fL (9.4-12.3); Monocytes Absolute Auto 0.5 X10*3/uL (0.1-1.2); Monocytes Percent Auto 6.7 % (2-11); Neutrophils Absolute Auto 4.1 x10*3/uL (2.0-8.3); Platelet Count 250 X10*3/uL (160-400); Red Blood Count 4.41 X10*6/uL (4.20-5.50); Red Cell Distribution Width 11.7 % (11.0-16.0); White Blood Count 7.1 X10*3/uL (4.8-10.8)
[2021-12-12 20:52] LABS: Anion Gap 12 (12-20); Blood Urea Nitrogen 13 mg/dL (9-16); Calcium 9.8 mg/dL (8.4-10.2); Carbon Dioxide 26 mmol/L (22-29); Chloride 105 mmol/L (96-108); Estimated Glomerular Filt Rate > 60; Glucose Random 78 mg/dL (60-115); Potassium 4.1 mmol/L (3.3-5.1); Sodium 139 mmol/L (135-145)
[2021-12-12 20:59] LABS: Troponin-I High Sensitivity < 3.5 ng/L (<3.5-17.0)
[2021-12-12 21:36] VITALS: BP 138/88; PULSE 74; RESP 18; TEMP 36.8; O2SAT 98; BMI 27.6
== END 2021-12-12 23:41 | disposition left against medical advice (07) ==
PROVIDERS: Emergency Provider Emergency Medicine
DX: R07.9 Chest pain, unspecified (principal); Z87.891 Personal history of nicotine dependence
CPT/HCPCS: 36415; 71045; 80048; 84484; 85025; 93005; 99283

== ENCOUNTER → 2022-01-31 08:58 | Outpatient (BNVA) | payer MEDICAID, SELFPAY | PROVIDERS: PCP Registered Nurse; Referring Provider Registered Nurse; Visit Provider Internal Medicine Cardiovascular Disease | DX: R07.9 Chest pain, unspecified (principal) | CPT/HCPCS: 99202 ==

== ENCOUNTER 2023-08-13 10:05 | Outpatient (AMB) | payer MEDICAID, SELFPAY ==
--- NOTE | 2023-08-13 10:06 | A.OFFVIS_ITS ---
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 Pt states that she has numbness, burning, itching, aching and tingling. Pt states she has not tried compression socks but does not like the feeling of anything tight on her legs. 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 Complaints include pain over varicosities, swelling of lower extremities, cramping, fatigue, and heaviness of the lower extremities. It has been affecting there daily activities including walking and caring for her 6 children. It is noted more so in right leg. Please note trim setter helper was present during visit Patient denies any previous venous surgery or injections. Patient denies any history of DVT/ PE. Patient denies any history of phlebitis. Trial of compression includes - [id number] They now present for vascular evaluation regarding their varicose veins. [facility] Medical History Umbilical hernia Grand multipara Surgical History Hx of hand surgery H/O umbilical hernia repair (~2017) Family History Mother No problems noted. Father Hx of diabetes mellitus Brother Hx of diabetes mellitus Maternal Grandfather No problems noted. Maternal Grandmother No problems noted. Paternal Grandfather No problems noted. Paternal Grandmother No problems noted. Other H/O heart bypass surgery Heart attack Social History Household Members: Family and Children Alcohol intake: never Patient Tobacco Use Status: Former Tobacco user Quit Date: 10 yrs ago service: No Current occupational status: unemployed Female Reproductive History Menstrual Age of Menarche: 10 Review of Systems Const Reports as per HPI ENT Reports no additional complaints Card Denies chest pain, Denies chest pain at rest and Denies chest pain with activity Resp Denies chest congestion and Denies cough GI Reports no additional complaints Musc Details: pain over varicosities, aching of lower extremities, swelling, cramping, heaviness and tiredness, itching Denies abnormal gait Skin/Breast Reports pruritus and Denies wounds Neuro Reports no additional complaints and Denies abnormal gait Psych Denies no additional complaints Physical Exam Vital Signs: BMI result Body Mass Index 28.5 Const General: cooperative, healthy appearing and comfortable Orientation/consciousness: oriented to person, oriented to place and oriented to time Neck Carotids: no bruits Chest Chest palpation & inspection: normal inspection of the chest and normal palpation of entire chest wall Resp Effort & Inspection: normal respiratory effort and able to speak in complete sentences Cardio Rate: regular rate Heart sounds: S1 normal heart sound present and S2 normal heart sound present Peripheral pulses: Peripheral pulses 2+ throughout GI Inspection: Yes normal to inspection Skin Other: +2 edema, large rope-like varicosities greater than 4 mm right thigh and calf CEAP Classification C4 - skin color changes Ep - Etiology Primary As - superficial veins P - reflux General skin exam: dry skin Neuro General: oriented to person, oriented to place and oriented to time Extrem Right lower extremity: full ROM, normal capillary refill and edema Left lower extremity: full ROM, normal capillary refill and edema Psych Mental Status: mental status grossly normal Assessment & Plan Assessment & Plan (1) Varicose veins of right lower extremity with inflammation: Code(s): I83.11 - Varicose veins of right lower extremity with inflammation Plan: In short, the patient has evidence of venous insufficiency. I have discussed t he pathophysiology with the patient. In addition I have provided informational material regarding venous disease to the patient. We have discussed conservative measures including compression, elevation, and exercise. I have also provided a handout regarding appropriate use of compression stockings and where to purchase good compression stockings as well. I have taken the liberty of ordering venous insufficiency testing with the patient. They will follow up with me after testing. The patient had an opportunity to ask questions regarding the treatment plan. All questions were answered. Imaging studies, laboratory studies and physical exam results were discussed and reviewed in detail. No major barriers to understanding were identified. The patient expressed understanding and agr eement with the above treatment plan. The patient is aware they should contact our office by phone for worsening of the current condition or the appearance of new symptoms. Thank you for allowing me to participate in the vascular care of this patient. If you have any questions or concerns regarding the treatment for the above condition please do not hesitate to contact me. The office telephone contact is [phone]. This note is constructed using voice recognition software. While every effort has been made to ensure accuracy, technical project lead errors may have been included. Thank you for allowing me to participate in the care of your patient. Yours sincerely, Brett Wilks MD, FACS, R.P.V.I. Orders: Orders US venous duplex LE BI 1 Week I83.11 - Varicose veins of right lower extremity with inflammation Coding Level of Care Code New Pt Level 4 (39085) Diagnoses Varicose veins of right lower extremity with inflammation I83.11
[2023-08-13 10:08] VITALS: BMI 28.5
== END 2023-08-13 10:54 | disposition home or self-care (01) ==
PROVIDERS: PCP Registered Nurse; Visit Provider Surgery Vascular Surgery
DX: I83.11 Varicose veins of right lower extremity with inflammation (principal)
CPT/HCPCS: 99204

== ENCOUNTER → 2023-08-13 10:05 | Outpatient (BNVA) | payer MEDICAID, SELFPAY | PROVIDERS: PCP Registered Nurse; Visit Provider Surgery Vascular Surgery | DX: I83.11 Varicose veins of right lower extremity with inflammation (principal) | CPT/HCPCS: 99202 ==

== ENCOUNTER 2024-01-12 13:41 | Emergency (ER) | payer MEDICAID, SELFPAY ==
[2024-01-12 13:50] VITALS: BP 127/77; PULSE 99; RESP 16; TEMP 36.6; O2SAT 99; BMI 25.0
--- NOTE | 2024-01-12 13:50 | ED.GENADULT ---
HPI - General Adult General Chief complaint: Upper Respiratory Symptoms Stated complaint: Sore throat Time Seen by Provider: 01/12/24 13:50 Source: patient Mode of arrival: ambulatory Limitations: no limitations History of Present Illness HPI narrative: Patient is a 29 year old assigned female at with no reported medical history presenting to the emergency department today with a sore throat. Patient states that over the last few days she has had a sore throat. Patient denies any dizziness, lightheadedness, abdominal pain, nausea, vomiting, fever, chills, blurry vision, double vision, loss of vision, chest pain, difficulty breathing, shortness of breath, back pain, night sweats, pain with urination, increased urinary frequency, increased urinary urgency, blood in her urine or stool, syncope or a near syncopal episode, recent trauma or falls, bowel incontinence, bladder incontinence, bowel retention, bladder retention, or any other complaints at this time. Onset (ago): day(s) Severity: mild Severity scale (1-10): 3 Relieving factors: none Exacerbating factors: none Associated symptoms: denies other symptoms Treatments prior to arrival: none Related Data Home Medications ?Medication ?Instructions ?Recorded ?Confirmed hydroxyzine HCl 25 mg tablet 25 mg PO TID PRN panic attack 01/31/22 01/31/22 metronidazole 500 mg tablet 500 mg PO Q12H 01/31/22 01/31/22 Previous Rx's ?Medication ?Instructions ?Recorded penicillin V potassium 500 mg 500 mg PO BID 10 days #20 tabs 01/12/24 tablet Allergies Allergy/AdvReac Type Severity Reaction Status Date / Time No Known Drug Allergies Allergy Unknown UNKNOWN Verified 01/12/24 13:52 [NO KNOWN DRUG ALLERGIES] Review of Systems Constitutional: Constitutional: Reports no additional constitutional complaints, Denies chills, Denies fever(s) and Denies night sweats Eyes: Eyes: Reports no additional eye complaints, Denies blurry vision, Denies change in vision, Denies diplopia, Denies eye discharge, Denies loss of vision and Denies eye pain ENT: Denies dizziness and Reports sore throat Cardiovascular: Cardiovascular: Reports no additional cardiovascular complaints, Denies chest pain, Denies lightheadedness, Denies Loss of Consciousness and Denies dyspnea Respiratory: Respiratory: Reports no additional respiratory complaints and Denies dyspnea Gastrointestinal: Gastrointestinal: Reports no additional gastrointestinal complaints, Denies abdominal pain, Denies melena, Denies hematochezia, Denies change in bowel habits and Denies change in stool character Genitourinary: Genitourinary: Denies hematuria, Denies urinary frequency, Denies dysuria, Denies urinary incontinence, Denies urinary hesitancy and Denies urinary urgency Musculoskeletal: Musculoskeletal: Reports no additional musculoskeletal complaints, Denies numbness and Denies tingling Neurologic: Denies dizziness, Denies loss of vision, Denies numbness and Denies tingling Psychiatric: Psychiatric: Reports no additional psychiatric complaints Endocrine: Endocrine: Reports no additional endocrine complaints Hematologic/Lymphatic: Hematologic/Lymphatic: Reports no additional hematologic/lymphatic complaints Allergic/Immunologic: Allergic/Immunologic: Reports no additional allergic/immunologic complaints PMFSH Past Medical History Attestation statement: The following information was validated with the patient. Source: old records reviewed and nursing notes reviewed Medical History Umbilical hernia Grand multipara Surgical History Hx of hand surgery H/O umbilical hernia repair (~2017) Family History Family History Mother No problems noted. Father Hx of diabetes mellitus Brother Hx of diabetes mellitus Maternal Grandfather No problems noted. Maternal Grandmother No problems noted. Paternal Grandfather No problems noted. Paternal Grandmother No problems noted. Other H/O heart bypass surgery Heart attack Social History Social History Household Members: Family and Children Alcohol intake: never Patient Tobacco Use Status: Former Tobacco user Quit Date: 10 yrs ago Advance Directives: No Advance Directives Information Provided: No Do you have a plan to hurt others: No Plan service: No Current occupational status: unemployed Physical Exam ED Vital Signs: Vital Signs - 24 hr 01/12/24 13:50 Temperature 97.9 F Pulse Rate 99 Respiratory Rate 16 Blood Pressure 127/77 Pulse Oximetry 99 Oxygen Delivery Method Room Air BMI result Body Mass Index 25.0 Const General: cooperative, no acute distress, alert and awake Nutritional Appearance: well nourished Orientation/consciousness: patient oriented x3 Limitations: no limitations HENMT Head: Yes normal to inspection and Yes atraumatic Ears: hearing grossly normal bilaterally and external ears normal General nose exam: Normal external nose present, no nasal discharge noted and no epistaxis Face and sinus: Yes normal facial exam, No abrasion and No laceration Mouth: Normal oral and palatal mucosa present, no drooling and no muffled voice Throat: Yes abnormal tonsil (bilateral erythema and exudates) Eyes General: appearance normal, both eyes and all related structures Periorbital: periorbital findings normal Eyelids: Yes eyelids normal Conjunctivae: conjunctivae normal Pupils: Equal, round and reactive pupils present EOM: EOMs intact bilaterally Neck Neck: Yes normal visual inspection, Yes full ROM and Yes no lymphadenopathy Chest Chest palpation & inspection: normal inspection of the chest Resp Effort & Inspection: normal respiratory effort and able to speak in complete sentences GI Inspection: Yes normal to inspection Neuro General: patient oriented x3 and moves all extremities Cranial nerves: Yes Equal, round and reactive pupils present Cognition (Neuro): normal cognition Motor exam (neuro): 5/5 motor strength present throughout Sensory Exam: Normal double simultaneous stimulation for sensation Coordination: tixjaf-si-whpe test normal Extrem General: Yes normal to inspection, Yes full ROM and Yes capillary refill normal Psych Appearance: grossly normal Mental Status: mental status grossly normal Affect: normal affect Attitude: cooperative Thought process: Normal thought process present Thought content: Normal thought content present Insight: Good insight present (Psych) Medical Decision Making Medical Decision Making MDM Narrative: Patient is a 29 year old assigned female at with no reported medical history presenting to the emergency department today with a sore throat. Patient's physical exam showed bilateral tonsilar exudates and erythema. I explained my physical exam findings to the patient. I answered all questions asked by the patient. I stressed the importance of the patient taking her medication as prescribed. I stressed the importance of the patient following up with her primary care provider. I stressed the importance of the patient returning to the emergency department immediately if her symptoms were to worsen or if she were to develop any dizziness, shortness of breath, difficulty breathing, chest pain, blurry vision, loss of vision, nausea, vomiting, abdominal pain, fever, chills, back pain, or any other complaints. Patient verbalized agreement and understanding with this treatment plan and discharge. Differential Diagnosis Differential Diagnoses: The differential diagnosis associated with the presentation includes Strep pharyngitis Pharyngitis Admission/Observation Consideration of admission/observation: Escalation of care including admission/observation considered Patient would have been admitted to the hospital had her clinical presentation warranted hospital admission. Prescription Management I considered prescription management with: Antibiotic (patient prescribed an antibiotic for pharyngitis) Discharge Plan Discharge Clinical Impression: Strep pharyngitis Patient Disposition: Home, Self-Care Instructions: Strep Throat (DC) Additional Instructions: Follow up with your primary care provider. Return to the emergency department immediately if your symptoms worsen or if you develop any dizziness, shortness of breath, difficulty breathing, chest pain, blurry vision, loss of vision, nausea, vomiting, abdominal pain, fever, chills, back pain, or any other complaints. Prescriptions: New penicillin V potassium 500 mg tablet 500 mg PO BID 10 Days Qty: 20 0RF No Action hydroxyzine HCl 25 mg tablet 25 mg PO TID PRN (Reason: panic attack) metronidazole 500 mg tablet 500 mg PO Q12H Referrals: [facility] [place] [facility] [place]] (Call to establish and follow up with a primary care provider. If you already have a primary care provider, please follow up with them.) [facility] [place] [facility]] [facility] [place] [facility]] Stand Alone Forms: Work/School Release Discharge Date/Time: 01/12/24 14:00 Print Language: Khmer
== END 2024-01-12 14:00 | disposition home or self-care (01) ==
LOC: HO.ED 13:58
PROVIDERS: Emergency Provider Student in an Organized Health Care Education/Training Program
DX: J02.0 Streptococcal pharyngitis (principal)
CPT/HCPCS: 99281; 99283

== ENCOUNTER 2024-02-24 14:58 | Outpatient (REF) | payer MEDICAID, SELFPAY ==
[2024-02-25 13:44] LABS: Bacterial Vaginosis PCR NEGATIVE (Negative); Candida Group PCR NOT DETECTED (Not Detect); Candida glab krusei PCR NOT DETECTED (Not Detect); Trichomonas vaginalis PCR NOT DETECTED (Not Detect)
[2024-02-25 14:02] LABS: CT PCR NOT DETECTED (Not Detect.); NG PCR NOT DETECTED (Not Detect.)
== END 2024-02-24 14:59 | disposition home or self-care (01) ==
LOC: HO.LAB 14:58
PROVIDERS: Visit Provider Advanced Practice Midwife
DX: Z30.09 Encounter for other general counseling and advice on contraception (principal); N89.8 Other specified noninflammatory disorders of vagina; I83.11 Varicose veins of right lower extremity with inflammation
CPT/HCPCS: 0352U; 0353U; 99212

== ENCOUNTER 2024-03-03 16:27 | Outpatient (REF) | payer MEDICAID, SELFPAY | END 2024-03-03 16:28 | disposition home or self-care (01) | LOC: HO.HHCLNP 16:27 | PROVIDERS: Visit Provider Advanced Practice Midwife | DX: R35.0 Frequency of micturition (principal) | CPT/HCPCS: 87086; 87088; 87186 ==

== ENCOUNTER 2024-03-08 11:07 | Emergency (ER) | payer MEDICAID, SELFPAY ==
[2024-03-08 11:10] VITALS: BP 122/81; PULSE 87; RESP 18; TEMP 36.7; O2SAT 97; BMI 27.7
[2024-03-08 11:21] LABS: MANUAL DIFF FLAG NO
[2024-03-08 11:22] LABS: Basophils Percent Auto 0.6 % (0-2); Eosinophils Absolute Auto 0.1 X10*3/uL (0.0-0.4); Eosinophils Percent Auto 1.8 % (0-4); Hematocrit 39.8 % (37.0-47.0); Hemoglobin 13.8 g/dl (12.0-16.0); Imm Gran Abs Auto 0.03 X10*3/uL (0.00-0.03); Imm Gran Pct Auto 0.5 % (0.0-0.4); Lymphocytes Absolute Auto 1.6 X10*3/uL (1.2-4.9); Mean Corpuscular HGB Conc 34.7 g/dl (31.0-35.0); Mean Corpuscular Hemoglobin 29.6 pg (27.0-33.0); Mean Corpuscular Volume 85.2 fL (80.0-98.0); Mean Platelet Volume 9.8 fL (9.4-12.3); Monocytes Absolute Auto 0.5 X10*3/uL (0.1-1.2); Monocytes Percent Auto 8.3 % (2-11); Neutrophils Percent Auto 62.8 % (45-73); Platelet Count 232 X10*3/uL (160-400); Red Blood Count 4.67 X10*6/uL (4.20-5.50); Red Cell Distribution Width 12.1 % (11.0-16.0); White Blood Count 6.3 X10*3/uL (4.8-10.8)
[2024-03-08 11:38] LABS: Alanine Aminotransferase 11 U/L (0-31); Albumin Level 4.9 g/dL (3.5-5.0); Alkaline Phosphatase 58 U/L (39-117); Anion Gap 13 (12-20); Aspartate Amino Transferase 13 U/L (5-31); Bilirubin Total 1.3 mg/dL (0.0-1.0); Blood Urea Nitrogen 10 mg/dL (9-16); Calcium 9.7 mg/dL (8.4-10.2); Carbon Dioxide 24 mmol/L (22-29); Chloride 107 mmol/L (96-108); Creatinine Clr Calc Pharmacy 106.2; Estimated Glomerular Filt Rate > 60; Glucose Random 114 mg/dL (60-115); Potassium 3.9 mmol/L (3.3-5.1); Sodium 140 mmol/L (135-145); Total Protein 7.4 g/dL (6.5-8.0)
[2024-03-08 12:00] LABS: Appearance Urine Cloudy; Color Urine Dark Yellow; Glucose Urine UA Negative (Negative); Leukocyte Esterase Urine Small (1+) (Negative); Nitrite Urine Negative (Negative); PH 5.5 (5.0-9.0); Specific Gravity - Urine 1.025 (1.005-1.025); UMIC TRIGGER UACC YES; Urine Blood Negative (Negative); Urine Ketones Negative (Negative); Urine Protein 30 (1+) mg/dL (Neg-Trace)
[2024-03-08 12:02] LABS: UPreg QC Valid YES; Urine Pregnancy NEGATIVE (NEGATIVE)
[2024-03-08 12:05] LABS: Bacteria Urine 4+ (None Seen); RBC Urine 0-2 /HPF (0-2); UACC Culture Trigger YES
--- NOTE | 2024-03-08 12:44 | ED_ITS ---
HPI - Female Genitourinary General Chief complaint: Urogenital-Female Stated complaint: blood in urine Time Seen by Provider: 03/08/24 12:31 Source: patient Limitations: no limitations History of Present Illness HPI Narrative: This is a 29 years old patient presented to the emergency department complaining frequency , dark urine. Denies any fever and chills. MD elicited complaint: dysuria and UTI Onset (ago): day(s) (2) Severity: mild Female Urogenital Radiation: Non-Radiating Quality of pain: cramping Consistency: constant Vaginal discharge: none Vaginal bleeding: none Urinary symptoms: Frequency Exacerbating factors: none Associated symptoms: denies other symptoms Related Data Previous Rx's ?Medication ?Instructions ?Recorded desogestrel-e.estradiol 0.15 1 tab PO DAILY #84 tabs 02/25/24 mg-0.02 mg(21)/e.estrad 0.01 mg(5) tablet levofloxacin 500 mg tablet 500 mg PO DAILY 3 days #3 tabs 03/08/24 Allergies Allergy/AdvReac Type Severity Reaction Status Date / Time No Known Drug Allergies Allergy Unknown UNKNOWN Verified 03/08/24 11:12 [NO KNOWN DRUG ALLERGIES] Review of Systems 2 Constitutional: Constitutional: Reports no additional constitutional complaints Eyes: Eyes: Reports no additional eye complaints Cardiovascular: Cardiovascular: Reports no additional cardiovascular complaints Genitourinary: Genitourinary: Reports other (frequency) [facility] Past Medical History [facility] Narrative: Patient denies any major medical problem Medical History Umbilical hernia Grand multipara Surgical History Hx of hand surgery H/O umbilical hernia repair (~2017) Family History Family History Mother No problems noted. Father Hx of diabetes mellitus Brother Hx of diabetes mellitus Maternal Grandfather No problems noted. Maternal Grandmother No problems noted. Paternal Grandfather No problems noted. Paternal Grandmother No problems noted. Other H/O heart bypass surgery Heart attack Social History Social History Household Members: Family and Children Alcohol intake: never Patient Tobacco Use Status: Former Tobacco user Smoked in Last 30 Days: No Use of substances other than those prescribed or required for medical reasons: No Advance Directives: No Advance Directives Information Provided: No Do you have a plan to hurt others: No Plan service: No Current occupational status: unemployed Physical Exam 2 Vital Signs: Vital Signs: Last Vital Signs Temp 98.0 F 03/08/24 13:18 Pulse 87 03/08/24 13:18 Resp 18 03/08/24 13:18 BP 122/81 03/08/24 13:18 Pulse Ox 97 03/08/24 13:18 O2 Del Method Room Air 03/08/24 13:18 BMI result Body Mass Index 27.7 Const: General: cooperative Nutritional Appearance: well nourished O rientation/consciousness: oriented to person and patient oriented x3 L imitations: no limitations HEENT: Head: Yes normal to inspection General nose exam: Normal external nose present Face and sinus: Yes normal facial exam Mouth: Normal oral and palatal mucosa present Throat: Yes posterior oropharynx normal Neck: Neck: Yes normal visual inspection and Yes full ROM Chest: Chest palpation & inspection: normal inspection of the chest Resp: Effort & Inspection: normal respiratory effort Auscultation: clear to auscultation bilaterally Cardio: Jugular venous distension: no JVD Rate: regular rate Rhythm: r egular rhythm GI: Inspection: Yes normal to inspection Palpation (GI): Soft to palpation, not firm and nontender Auscultation: normal bowel sounds Skin: General skin exam: no rashes or lesions noted Rashes: no rashes Neuro: General: oriented to person and patient oriented x3 Course Reevaluation(s) Reevaluation #1: UA shows 11 20 WBC 1+ leuko esterases, patient had the urinalysis March 03 reviewed the culture she grew E coli. She is on Macrobid I will change the Macrobid to Levaquin. She will follow up with the PCP Time: 12:49 Medical Decision Making Medical Decision Making MDM Narrative: Patient presented with frequency will check a UA labs and reassess Differential Diagnosis Differential Diagnoses: The differential diagnosis associated with the presentation includes Differential diagnosis urinary tract infection/pyelonephritis Admission/Observation Consideration of admission/observation: Escalation of care including admission/observation considered Lab Data [facility] Lab Attestation statement: I reviewed the patient's lab results. 03/08/24 11:18 03/08/24 11:18 Labs: Lab Results 03/08/24 03/08/24 Range/Units 11:18 11:52 WBC 6.3 (4.8-10.8) X10*3/uL RBC 4.67 (4.20-5.50) X10*6/uL Hgb 13.8 (12.0-16.0) g/dl Hct 39.8 (37.0-47.0) % MCV 85.2 (80.0-98.0) fL MCH 29.6 (27.0-33.0) pg MCHC 34.7 (31.0-35.0) g/dl RDW 12.1 (11.0-16.0) % Plt Count 232 (160-400) X10*3/uL MPV 9.8 (9.4-12.3) fL Immature Gran % (Auto) 0.5 H (0.0-0.4) % Neut % (Auto) 62.8 (45-73) % Lymph % (Auto) 26.0 (20-40) % [place] % (Auto) 8.3 (2-11) % Eos % (Auto) 1.8 (0-4) % Baso % (Auto) 0.6 (0-2) % Lymph # (Auto) 1.6 (1.2-4.9) X10*3/uL [place] # (Auto) 0.5 (0.1-1.2) X10*3/uL Eos # (Auto) 0.1 (0.0-0.4) X10*3/uL Baso # (Auto) 0.0 (0.0-0.2) X10*3/uL Abs Immat Gran (auto) 0.03 (0.00-0.03) X10*3/uL Absolute Neuts (auto) 4.0 (2.0-8.3) x10*3/uL Absolute Nucleated RBC 0.000 (0.0-0.012) X10*3/uL Nucleated RBC % (auto) 0.0 (0.0-0.2) /100WBC Sodium 140 (135-145) mmol/L Potassium 3.9 (3.3-5.1) mmol/L Chloride 107 (96-108) mmol/L Carbon Dioxide 24 (22-29) mmol/L Anion Gap 13 (12-20) BUN 10 (9-16) mg/dL Creatinine 0.78 (0.5-1.4) mg/dL Estim Creat Clear Calc 106.2 Estimated GFR > 60 Random Glucose 114 (60-115) mg/dL Calcium 9.7 (8.4-10.2) mg/dL Total Bilirubin 1.3 H (0.0-1.0) mg/dL AST 13 (5-31) U/L ALT 11 (0-31) U/L Alkaline Phosphatase 58 (39-117) U/L Total Protein 7.4 (6.5-8.0) g/dL Albumin 4.9 (3.5-5.0) g/dL Urine Color Dark Yellow Urine Appearance Cloudy Urine pH 5.5 (5.0-9.0) Ur Specific [place] 1.025 (1.005-1.025) Urine Protein 30 (1+) H (Neg-Trace) mg/dL Urine Glucose (UA) Negative (Negative) mg/dL Urine Ketones Negative (Negative) mg/dL Urine Blood Negative (Negative) Urine Nitrite Negative (Negative) Ur Leukocyte Esterase Small (1+) H (Negative) Urine RBC 0-2 (0-2) /HPF Urine WBC 11-20 H (0-5) /HPF Ur Squamous Epith Cells 11-20 (0-2) /HPF Urine Bacteria 4+ (None Seen) Hyaline Casts 3-5 (0-2) /LPF Urine Test NEGATIVE (NEGATIVE) Discharge Plan Discharge Clinical Impression: UTI (urinary tract infection) Patient Disposition: Home, Self-Care Instructions: Urinary Tract Infection in Women (DC) Additional Instructions: Follow-up with your primary care physician, with and a prescription for you to the pharmacy for antibiotic. Prescriptions: New levofloxacin 500 mg tablet 500 mg PO DAILY 3 Days Qty: 3 0RF No Action desog-e.estradiol/e.estradiol 0.15-0.02 mgx21 /0.01 mg x 5 tablet 1 tab PO DAILY Qty: 84 4RF Referrals: [facility] [Primary Care Provider] - 2 days Interventions: ED Discharge Assessment Last Done: 03/08/24 13:18 Discharge Date/Time: 03/08/24 13:19 Print Language: Greenlandic
[2024-03-08 13:18] VITALS: BP 122/81; PULSE 87; RESP 18; TEMP 36.7; O2SAT 97
== END 2024-03-08 13:19 | disposition home or self-care (01) ==
PROVIDERS: Emergency Provider Emergency Medicine
DX: N39.0 Urinary tract infection, site not specified (principal); R30.0 Dysuria
CPT/HCPCS: 36415; 80053; 81001; 81003; 81025; 85025; 87086; 99283; 99284

== ENCOUNTER 2024-07-20 13:07 | Outpatient (AMB) | payer MEDICAID, SELFPAY ==
--- NOTE | 2024-07-20 13:11 | A.OFFVIS_ITS ---
Vital Signs 07/20/24 13:13 Height 5 ft 5 in Weight 165 lb BMI 27.5 BP 110/68 Intake Visit Reasons: Vaginal odor Information Interpreted: clinical only Manager Council: Manager Council Present Allergies No Known Drug Allergies [NO KNOWN DRUG ALLERGIES] Allergy (Unknown, Verified 07/20/24 13:12) UNKNOWN Medication List - Last Reconciled 07/20/24 by Nini Ornelas CNM No Known Home Meds Is last menstrual period known: Yes Last menstrual period: 07/05/24 HPI HPI Vaginal odor: Details: Patient is here because she is having burning with urination frequency of urination and a bad odor with her urine and she thinks it is BV she says the last time she had these symptoms that is what it turned out to be and she is convinced it must be BV.. She has burning when she voids and this is been going on for about a week. She was prescribed control pills the last time she was seen and she did not get to come back because her daughter got sick her daughter has been sick with multiple upper respiratory infections she started out with COVID she developed asthma and she has had pneumonia and other viral infections and she can not catch a break this is her 4-year-old daughter. 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 She missed appointments because of dealing with her ill daughter She does not know when her last Pap smear was but she does not think she ever had an abnormal 1 she thinks it could have been pre pandemic. She delivered all of her children at the midwifery practice at [facility]. She saw a doctor about her varicose veins and was considering surgery but he informed her that she would have to rest after surgery and with her 6 children she can not afford to do that. [facility] Medical History Umbilical hernia Grand multipara Surgical History Hx of hand surgery H/O umbilical hernia repair (~2017) Family History Mother No problems noted. Father Hx of diabetes mellitus Brother Hx of diabetes mellitus Maternal Grandfather No problems noted. Maternal Grandmother No problems noted. Paternal Grandfather No problems noted. Paternal Grandmother No problems noted. Other H/O heart bypass surgery Heart attack Social History Household Members: Family and Children Alcohol intake: never Patient Tobacco Use Status: Former Tobacco user service: No Current occupational status: unemployed Female Reproductive History Menstrual Age of Menarche: 10 Duration of menses: 3-5 days Date of last menstrual period: 07/05/24 control method: none Total pregnancies: 6 Full term: 6 History of abnormal pap smear: No (previous pap neg.unknown date) Physical Exam Vital Signs: Last Vital Signs BP 110/68 07/20/24 13:13 BMI result Body Mass Index 27.5 Other: Vagina is clear cervix clear multiparous healthy-appearing with clear discharge with some white mucus through it consistent with approaching midcycle. Bimanual done cervix is long close thick uterus slightly retroverted mobile nontender firm. Her bladder is not tender. Patient does describe the burning as internal when she voids. External Female Exam: normal external appearance Speculum Exam - Vagina: normal appearance of the vagina and normal vaginal discharge Speculum Exam - Cervix: normal appearance of the cervix Bimanual exam- vagina & uterus: normal bimanual exam, uterine size normal, consistency normal, uterine mobility normal, uterine shape normal and non-tender Bimanual Exam- Adnexa, other: normal adnexae, no masses and No adnexal tenderness Assessment & Plan Assessment & Plan (1) BCP ( control pills) initiation: Code(s): Z30.011 - Encounter for initial prescription of contraceptive pills Category: Medical (2) Encounter for screening examination for sexually transmitted disease: Code(s): Z11.3 - Encounter for screening for infections with a predominantly sexual mode of transmission Category: Medical (3) Varicose veins of right lower extremity with inflammation: Code(s): I83.11 - Varicose veins of right lower extremity with inflammation Category: Medical (4) Vaginal odor: Comment: Patient is convinced that she has BV her symptoms line up more with a urinary tract infection. Will offer treatment for BV but I recommend seeking urgent care for UTI symptoms. Code(s): N89.8 - Other specified noninflammatory disorders of vagina Category: Medical Plan Testing done today for gonorrhea chlamydia trichomoniasis bacterial vaginosis and yeast. Her cervical discharge is absolutely consistent with midcycle and appears very clear and healthy appearing patient is very clear that she believes it is BV I will offer her treatment with the Metrogel which we discussed and if that does not work for her symptoms she may discontinue that and take the Flagyl but I did inform her that I believe that her symptoms are more 9 with midcycle ovulation with the discharge and also that her description of her urinary symptoms line up more with a urinary tract infection unfortunately she voided right before this exam and she does have abundant discharge at this point time midcycle. She would need to do a very very good clean-catch urine. If I send her to the lab now to obtain this specimen, we will not have results for 3 days. she may also consider being seen at the urgent care site downstairs at the [facility] as she is [facility] patient. she is awaiting an upcoming annual exam appointment for herself she also needs to reschedule an annual exam here with us as she is overdue for Pap smear. She wants to start back on control pills and she liked taking them and was good pill taker I instructed her to start her pills at the beginning next period and reviewed side effects with her we will see her for the annual exam and see how she is doing I am going to prescribe her enough for year so she does not run out. RTC for annual with Pap pill check. Of interest the patient told me that she only had a 3 month supply on the control pills so when she ran out she could not continue on them though she had also broken up with her partner at that time. It develops that I did give her over year supply at the last visit there were 4 refills on the three month prescription. Orders: Orders CT NG by PCR Today N89.8 - Other specified noninflammatory disorders of vagina, Z20.2 - Contact with and (suspected) exposure to infections with a predominantly sexual mode of transmission Bacterial Vaginosis Panel Today N89.8 - Other specified noninflammatory disorders of vagina Medications: New metronidazole 0.75%(37.5mg/5gram) 1 appful vaginal BID 5 days 70 grams 0RF I83.11 - Varicose veins of right lower extremity with inflammation, N89.8 - Other specified noninflammatory disorders of vagina, Z11.3 - Encounter for screening for infections with a predominantly sexual mode of transmission, Z30.011 - Encounter for initial prescription of contraceptive pills metronidazole 500 mg PO Q12H 14 tabs 0RF Refilled desog-e.estradiol/e.estradiol 0.15-0.02 mgx21 /0.01 mg x 5 1 tab PO DAILY 84 tabs 4RF Coding Level of Care Code Est Pt Level 3 (95260) Diagnoses BCP ( control pills) initiation Z30.011 Encounter for screening examination for sexually transmitted disease Z11.3 Varicose veins of right lower extremity with inflammation I83.11 Vaginal odor N89.8
[2024-07-20 13:13] VITALS: BP 110/68; BMI 27.5
== END 2024-07-20 14:39 | disposition home or self-care (01) ==
LOC: HO.HWSM 13:07
PROVIDERS: Visit Provider Advanced Practice Midwife
DX: Z30.011 Encounter for initial prescription of contraceptive pills (principal); Z11.3 Encounter for screening for infections with a predominantly sexual mode of transmission; I83.11 Varicose veins of right lower extremity with inflammation; N89.8 Other specified noninflammatory disorders of vagina
CPT/HCPCS: 99213

== ENCOUNTER 2024-07-20 13:07 | Outpatient (REF) | payer MEDICAID, SELFPAY ==
[2024-07-21 06:35] LABS: CT PCR NOT DETECTED (Not Detect.); NG PCR NOT DETECTED (Not Detect.)
[2024-07-21 13:37] LABS: Bacterial Vaginosis PCR NEGATIVE (Negative); Candida Group PCR NOT DETECTED (Not Detect); Candida glab krusei PCR NOT DETECTED (Not Detect); Trichomonas vaginalis PCR NOT DETECTED (Not Detect)
== END 2024-07-20 13:08 | disposition home or self-care (01) ==
LOC: HO.LAB 13:07
PROVIDERS: Visit Provider Advanced Practice Midwife
DX: N89.8 Other specified noninflammatory disorders of vagina (principal); Z20.2 Contact with and (suspected) exposure to infections with a predominantly sexual mode of transmission
CPT/HCPCS: 0352U; 87491; 87591; 99212

== ENCOUNTER 2024-07-27 17:55 | Outpatient (REF) | payer MEDICAID, SELFPAY | END 2024-07-27 17:56 | disposition home or self-care (01) | LOC: HO.HHCLNP 17:55 | PROVIDERS: Visit Provider Nurse Practitioner Family | DX: R39.9 Unspecified symptoms and signs involving the genitourinary system (principal) | CPT/HCPCS: 87086; 87088; 87186 ==

== ENCOUNTER 2024-08-20 15:33 | Outpatient (REF) | payer MEDICAID, SELFPAY ==
[2024-08-20 17:53] LABS: HCG Quantitative 15872 mIU/mL
[2024-08-21 03:45] LABS: HBS Num1 1.58 mIU/mL (0-7.99); HBc Num1 0.11 S/CO (0.00-0.79); HBsAGNum1 0.44 S/CO (0.00-0.99); Hepatitis B Core Antibody Nonreactive (Nonreactive); Hepatitis B Surface Antigen Negative (Negative); ~HepC Num1 0.11 S/CO (0.00-0.79); ~Hepatitis A Antibody IgM Nonreactive (Nonreactive); ~Hepatitis B Surface Antibody NONREACTIVE (Nonreactive); ~Hepatitis C Antibody Nonreactive (Nonreactive)
[2024-08-21 15:23] LABS: Varicella IgG Antibody 9.39 S/CO
[2024-08-22 04:08] LABS: Rubella IgG Antibody 1.95 Index
== END 2024-08-20 15:34 | disposition home or self-care (01) ==
LOC: HO.HHCL 15:33
PROVIDERS: Visit Provider Internal Medicine
DX: Z00.00 Encounter for general adult medical examination without abnormal findings (principal); N92.6 Irregular menstruation, unspecified
CPT/HCPCS: 36415; 84702; 86704; 86706; 86709; 86735; 86762; 86765; 86787; 86803; 87340

== ENCOUNTER 2024-10-09 13:44 | Outpatient (REF) | payer MEDICAID, SELFPAY ==
--- OUTSIDE RECORDS SUMMARY | 2024-10-09 14:07 | XMS_ITS | Encounter Summary ---
Author Organization [employer] Address [address] [facility] [address] [place] [id number] Care Team Providers Care Placement Specialist Name Role Phone Monse Ellington NP Primary Care Provider [phone] Reason for Visit * Reason Onset Date Comments Results 09/15/2024 Encounter Details Date Type Department Care Team ([facility] st Contact Info) Description 09/15/2024 Telephone [facility] MEDICINE [address] [place] [address] Monse Ellington NP [address] [place] [address] Results Social History Tobacco Use Types Packs/Day Years Used Date Smoking Tobacco: Never Passive Smoke Exposure: Never Smokeless Tobacco: Never Alcohol Use Standard Drinks/Week Comments Never 0 (1 standard drink = 0.6 oz pur e alcohol) Depression Answer Date Recorded Patient Health Questionnaire-9 Score 0 08/20/2024 Patient Health Questionnaire-9 Score 0 08/20/2024 Last PHQ-9: Questionnaire Data Not on file 1 10/21/2023 Housing Stability Answer Date Recorded What is your housing situation today? I have darwin pradhan 08/20/[address] you li ve. Do you have problems with any of the following? None of the above 08/20/2024 Food Insecurity Answer Date Recorded Within the past 12 months, y ou worried that your food would run out before you got money to buy more: Never True 08/20/2024 Within the past 12 months,th e food you bought just didn't last and you didn't have enough money to get more: Never True Transportation Answer Date Recorded In the past 12 months, has l ack of transportation kept you from medical appts, meetings, work or from getting things needed for daily living? No 08/20/2024 Utilities Answer Date Recorded In the past 12 months, has t he electric, gas, oil or water company threatened to shut off services in your home? No 08/20/2024 Depression Answer Date Recorded Patient Health Questionnaire-2 Score 0 08/20/2024 Internet Access Answer Date Recorded Internet Access Q1 Yes 09/03/2024 Internet Access Q2 I do not want or need it 10/2024 Comments No Sex and Gender Information Value Date Recorded Sex Assigned at Female 07/02/2022 10:21 AM EDT Legal Sex Female 10:21 AM EDT Gender Identity Female 07/02/2022 10:21 AM EDT Sexual Orientation Choose not to disclose 2023 8:53 AM EST documented as of this encounter Miscellaneous Notes * Telephone Encounter - Melissa Ruiz RN - 09/15/2024 12:23 PM EST TC placed to pt regarding message about labs. Pt is aware of lab results. Pt states she brought a form into medical records on 08/20/24 to be completed. States she already signed a release and brought the form down, but she states it has not been completed. TC placed to [facility] who states they will look for form and return call to nurse. Incoming TC from [facility] stating the form is currently on red team and has not been completed because the pt needs to have T SPOT done. [place] states that Germaine Iglesias RN on red team haspreviously attempted to reach the pt to inform of T SPOT needing to be completed. [place] states that Germaine Iglesias RN said she will attempt to reach the pt again to inform pt T SPOT needs completion. * Telephone Encounter - Armando Cruz - 09/15/2024 12:04 PM EST TC from pt requesting call back regarding Results. Type of results: Labs Date when done: 08/20/24 Facility: [facility] Labs Please contact pt at [phone]. documented in this encounter Plan of Treatment Upcoming Encounters Date Type Department Care Team (Late st Contact Info) Description 10/09/2024 2:20 PM EST Office Visit [facility] WALK-IN CENTER [address] [place] [address] Pharyngitis with viral syndrome (Primary Dx) documented as of this encounter Visit Diagnoses Not on filedocumented in this encounter Additional Health Concerns Assessment Noted Time PHQ-9 Depression Total Score: 0 08/20/20 24 2:29 PM EST documented as of this encounter Care Teams Placement Specialist Relationship Specialty Start Date End Date Monse Ellington NP [address] [place] [address] PCP - General Family Medicine 06/06/23 documented as of this encounter
--- OUTSIDE RECORDS SUMMARY | 2024-10-09 14:07 | XMS_ITS | Encounter Summary ---
Author Organization [employer] Address [address] [facility] [address] [place] [address] Care Team Providers Care Artillery Maintenance Supervisor Name Role Phone Zuleymayusef Monse GIFFORD Primary Care Provider [phone] Reason for Visit * Reason Comments Care Management C3CM initial assessm ent-lvm Encounter Details Date Type Department Care Team (Late st Contact Info) Description 09/16/2024 Telephone [facility] MEDICINE [address] [place] [address] Hannah Marie, JYOTI Care Management (C3CM initial assessment-lvm) Social History Tobacco Use Types Packs/Day Years [...] AM EST documented as of this encounter Progress Notes * Hannah Marie - 09/16/2024 3:12 PM EST CM Hannah Marie RN placed outbound call to patient for agreed upon assessment time. No answer at this time, left message requesting call back at [phone] or CHW [phone]. CM/CHW will attempt contact with patient to reschedule missed initial assessment. documented in this encounter Plan of Treatment Upcoming Encounters Date Type Department Care Team (Late st Contact Info) Description 10/09/2024 2:20 PM EST Office Visit [facility] WALK-IN CENTER [address] [place] [address] Pharyngitis with viral syndrome (Primary Dx) documented as of this encounter Visit Diagnoses Not on filedocumented in this encounter Additional Health Concerns Assessment Noted Time PHQ-9 Depression Total Score: 0 08/20/20 24 2:29 PM EST documented as of this encounter Care Teams Artillery Maintenance Supervisor Relationship Specialty Start Date End Date Monse Ellington NP [address] [place] [address] PCP - General Family Medicine 06/06/23 documented as of this encounter
--- OUTSIDE RECORDS SUMMARY | 2024-10-09 14:07 | XMS_ITS | Encounter Summary ---
Author Organization [employer] Address [address] [facility] 7t [place] [address] Care Team Providers Care Registered Nurse Fetal Name Role Phone Monse Ellington NP Primary Care Provider [phone] Reason for Visit * Reason Comments Care Coordination C3CM/CHEIKH Subramanian- LVM-Appt reminder for CM Maternity IA Encounter Details Date Type Department Care Team (Latest Contact Info) Description 09/15/2024 Patient Outreach [facility] MEDICINE [address] [place] [address] Monse Ellington NP [address] [place] [address] Care Coordination (SaeidCM/CHEIKH Noguera- LVM-Appt reminder for CM Maternity IA) Social History Tobacco Use Types Packs/Day Years [...] as of this encounter Progress Notes * Bahman Jain - 09/15/2024 5:05 PM EST CHW Bahman Jain, placed outbound call to patient in regards to remind patient of Maternity program initial assessment appt for tomorrow 09/16/2024 @3PM via telephone with CM Hannah Marie RN. No answer, therefore CHW LVM with appt details as well as CHW contact information [phone] requesting call back. Patient's and address was not confirmed. documented in this encounter Plan of Treatment Upcoming Encounters Date Type Department Care Team ([facility] st Contact Info) Description 10/09/2024 2:20 PM EST Office Visit [facility] WALK-IN CENTER [address] [place] [address] Pharyngitis with viral syndrome (Primary Dx) documented as of this encounter Visit Diagnoses Not on filedocumented in this encounter Additional Health Concerns Assessment Noted Time PHQ-9 Depression Total Score: 0 08/20/20 24 2:29 PM EST documented as of this encounter Care Teams Registered Nurse Fetal Relationship Specialty Start Date End Date Monse Ellington NP [address] [place] [address] PCP - General Family Medicine 06/06/23 documented as of this encounter
--- OUTSIDE RECORDS SUMMARY | 2024-10-09 14:07 | XMS_ITS | Encounter Summary ---
Author Organization [facility] Address [address] [place] [address] Phone Care Team Providers Care Country Printer Apprentice Name Role Phone Unavailable Primary Care Provider Unavailabl e Encounter Details Date Type Department Care Team (Late st Contact Info) Description 04/18/2017 Conversion Encounter [facility] [address] [address] Social History Tobacco Use Types Packs/Day Years Used Date Smoking Tobacco: Never Assessed Comments Unknown Sex and Gender Information Value Date Recorded Sex Assigned at Not on file Legal Sex Female 4:27 PM EDT Gender Identity Not on file Sexual Orientation Not on file documented as of this encounter Plan of Treatment Not on file documented as of this encounter Visit Diagnoses Not on filedocumented in this encounter
--- OUTSIDE RECORDS SUMMARY | 2024-10-09 14:07 | XMS_ITS | Clinical Summary ---
Author Organization [facility] [address] [facility] Address [address] [place] [address] Phone Care Team Providers Care Digester Operator Helper Name Role Phone Naz Fofana NP Primary Care Provider [phone] Surgical History Surgery Date Site/Laterality Comments HERNIA REPAIR 2018 PROCEDURE: HISTORICAL HERNIA REPAIR/UMB Medical History Medical History Date Comments History of depression 2010 DX:History of depression Family History Medical History Relation Name Comments Diabetes Father Relation Name Status Comments Daughter 1 Alive Daughter 2 Alive Father Alive Maternal Grandfather Maternal Grandmother Alive Mother Alive Paternal Grandfather Paternal Grandmother Son 1 Alive Son 2 Alive Social History Tobacco Use Types Packs/Day Years Used Date Smoking Tobacco: Never Smokeless Tobacco: Never Alcohol Use Standard Drinks/Week Comments No 0 (1 standard drink = 0.6 oz pur e alcohol) Sex and Gender Information Value Date Recorded Sex Assigned at Not on file Gender Identity Not on file Sexual Orientation Not on file Job Start Date Occupation Industry Not on file Not on file Not on file Obstetrics History Plan of Treatment Health Maintenance Due Date Last Done Comments DTaP,Tdap,and Td Vaccines (1 - Tdap) 01/07/2012 Hepatitis B Vaccines (1 of 3 - 19+ 3-dose series) 01/07/2012 Cervical Cancer Screening: P ap Smear 2014 COVID-19 Vaccine ( - 2023-2 5 season) 2024 Influenza Vaccine (#1) 2024 Depression Screening 08/05/2024 HIV Screening 08/05/2024 Hepatitis C Screening 08/05/2024 Social Influencers of Health Screening 08/05/2024 HIB Vaccines Aged Out No longer eligi ble based on patient's age to complete this topic HPV Vaccines Aged Out No longer eligi ble based on patient's age to complete this topic Hepatitis A Vaccines Aged Out No long er eligible based on patient's age to complete this topic IPV Vaccines Aged Out No longer eligi ble based on patient's age to complete this topic MMR Vaccines Aged Out No longer eligi ble based on patient's age to complete this topic Meningococcal ACWY Vaccine Aged Out N o longer eligible based on patient's age to complete this topic Pneumococcal Vaccine: Pediat rics (0 to 5 Years) and At-Risk Patients (6 to 64 Years) Aged Out No longer eligible b ased on patient's age to complete this topic RSV Immunization Patients Un sandra 20 months Aged Out No longer eligible b ased on patient's age to complete this topic Varicella Vaccines Aged Out No longer eligible based on patient's age to complete this topic Guarantor Name Account Type Relation to Patient Date of Phone Billing Address [place] Personal/Family Self 1995 [address] [facility] [address] [place] [address] Care Teams Digester Operator Helper Relationship Specialty Start Date End Date Naz Fofana NP [address] [facility] [address] [place] [address] PCP - General Internal Medicine 08/05/24
--- OUTSIDE RECORDS SUMMARY | 2024-10-09 14:07 | XMS_ITS | Encounter Summary ---
Author Organization [employer] Address [address] [facility] 7t [place] [address] Care Team Providers Care Soda Worker Name Role Phone Monse Ellington NP Primary Care Provider [phone] Reason for Visit * Reason Comments Care Coordination C3JAYSON/CHEIKH Subramanian#2- Reschedule IA Appt _LVM Encounter Details Date Type Department Care Team (Latest Contact Info) Description 10/06/2024 Patient Outreach [facility] MEDICINE [address] [place] [address] Monse Ellington NP [address] [place] [address] Care Coordination (SUPA/CHEIKH Noguera#2- Reschedule IA Appt _LVM) Social History Tobacco Use Types Packs/Day Years [...] encounter Progress Notes * Bahman Jain - 10/06/2024 3:49 PM EST CHW Bahman Jain placed outbound call to patient in regards to rescheduling missed initial assessment appointment on 09/16/2024 for HR Maternity program services. No answer at this time. LVM introducing self from [facility] CM Department with name and direct contact number requesting call back. Will re-attempt to contact within 5 days. and address not confirmed. documented in this encounter Plan of Treatment Upcoming Encounters Date Type Department Care Team ([facility] st Contact Info) Description 10/09/2024 2:20 PM EST Office Visit [facility] WALK-IN CENTER [address] [place] [address] Pharyngitis with viral syndrome (Primary Dx) documented as of this encounter Visit Diagnoses Not on filedocumented in this encounter Additional Health Concerns Assessment Noted Time PHQ-9 Depression Total Score: 0 08/20/20 24 2:29 PM EST documented as of this encounter Care Teams Soda Worker Relationship Specialty Start Date End Date Monse Ellington NP [address] [place] [address] PCP - General Family Medicine 06/06/23 documented as of this encounter
--- OUTSIDE RECORDS SUMMARY | 2024-10-09 14:07 | XMS_ITS | Encounter Summary ---
Author Organization [employer] Address [address] [facility] 7t [place] [address] Care Team Providers Care Stove Fitter Name Role Phone Monse Ellington NP Primary Care Provider [phone] Reason for Visit * Reason Comments Care Coordination C3CM/CHEIKH Subramanian#1-LVM- Attempt to reschedule missed initial assessment appt Encounter Details Date Type Department Care Team (Latest Contact Info) Description 09/23/2024 Patient Outreach [facility] MEDICINE [address] [place] [address] Monse Ellington NP [address] [place] [address] Care Coordination (SUPA/CHEIKH Noguera#1-LVM- Attempt to reschedule missed initial assessment appt) Social History Tobacco Use Types Packs/Day Years [...] encounter Progress Notes * Bahman Jain - 09/23/2024 2:25 PM EST CHW Bahman Jain placed outbound call to patient in regards to rescheduling missed initial assessment appointment on 09/16/2024 for HR Maternity program services. No answer at this time. LVM introducing self from [facility] CM Department with name and direct contact number requesting call back. Will re-attempt to contact within 5 days. and address not confirmed. documented in this encounter Plan of Treatment Upcoming Encounters Date Type Department Care Team (Late st Contact Info) Description 10/09/2024 2:20 PM EST Office Visit [facility] WALK-IN CENTER [address] [place] [address] Pharyngitis with viral syndrome (Primary Dx) documented as of this encounter Visit Diagnoses Not on filedocumented in this encounter Additional Health Concerns Assessment Noted Time PHQ-9 Depression Total Score: 0 08/20/20 24 2:29 PM EST documented as of this encounter Care Teams Stove Fitter Relationship Specialty Start Date End Date Monse Ellington NP [address] [place] [address] PCP - General Family Medicine 06/06/23 documented as of this encounter
--- OUTSIDE RECORDS SUMMARY | 2024-10-09 14:07 | XMS_ITS | Encounter Summary ---
Author Organization [employer] Address [address] [facility] [address] [place] [address] Care Team Providers Care Assembler Production Line Name Role Phone ZuleymaMonse holbrook ИРИНА Primary Care Provider [phone] Reason for Visit * Reason Onset Date Comments Paperwork/Forms 08/28/2024 Encounter Details Date Type Department Care Team ([facility] st Contact Info) Description 08/28/2024 Telephone [facility] MEDICINE [address] [place] [address] Maico Lees, JYOTI [address] [place] [address] Paperwork/Forms Social History Tobacco Use Types Packs/Day Years [...] encounter Miscellaneous Notes * Telephone Encounter - Maico Lees RN - 09/24/2024 4:31 PM EST RN checked on Tspot lab order for results. No results in chart and nothing pending in meditech. TC placed to patient [phone] to inquire on plan to complete Tspot order, patient did not answer, RN left requesting CB to red team nurses. TC placed to [phone] however no answer, RN left requesting CB to red team nurses. Patient to f/u PRN. Forms still pending Tspot results * Addendum Note - Maico Lees RN - 09/15/2024 2:05 PM ESTAddended by: MAICO LEES on: 09/15/2024 02:05 PM Modules accepted: Orders * Telephone Encounter - Maico Lees RN - 09/15/2024 2:03 PM EST RN received call from [employer] stating patient is looking for her [employer] forms. RN advised JYOTI Fraser has been attempting to contact patient as Tspot is needed. RN advised JYOTI Fraser will call patient. TC placed to patient [phone] to inform patient we are unable to complete paperwork as we are awaiting Tspot results (which we attempted to contact patient on 08/28 and 09/04). Patient reports she needs the paperwork by 5pm today. RN advised this is not possible as Tspot takes approx 1 week to result still has not been collected. Patient reports she will come to the lab today at [facility] to have BW completed. Patient advised paperwork will be completed once results are received. * Telephone Encounter - Maico Lees RN - 09/04/2024 1:59 PM EST RN called patient x2 to advise patient on need to return to the lab to have Tspot drawn. Patient did not answer, RN left VM requesting CB to red team nurses. TC placed to spouse [phone] however also no answer, RN left VM requesting CB to red team nurses. Patient to f/u PRN. Forms pending completion of Tspot. * Telephone Encounter - Maico Lees RN - 08/28/2024 11:19 AM EST RN received paperwork for [facility] regarding the nurse aide program. Patient must have Tspot completed. Patient had BW on 08/2124 however it appears Tspot was not drawn. RN checked [employer] which also does not have Tspot pending. TC placed to [facility] lab [phone] who reports they did not receive a tspot order for this patient. [facility] lab is requesting order to be faxed to [phone]. RN has printed BW order and faxed, confirmation page received. RN called patient [phone] to advise patient on need to return to the lab to have Tspot drawn. Patient did not answer, RN left VM requesting CB to red team nurses. Patient to f/u PRN. Forms pending completion of Tspot. documented in this encounter Plan of Treatment Upcoming Encounters Date Type Department Care Team (Late st Contact Info) Description 10/09/2024 2:20 PM EST Office Visit [facility] WALK-IN CENTER [address] [place] [address] Pharyngitis with viral syndrome (Primary Dx) Scheduled Orders Name Type Priority Associated Diagnoses Orde r Schedule T-SPOT??.TB Lab Routine Encounter for screening for respiratory tuberculosis Expected: 09/15/2024 (Approximate), Expires: 09/15/2025 documented as of this encounter Visit Diagnoses Diagnosis Encounter for screening for respiratory tuberculosis Pharyngitis with viral syndrome- Primary documented in this encounter Additional Health Concerns Assessment Noted Time PHQ-9 Depression Total Score: 0 08/20/20 24 2:29 PM EST documented as of this encounter Care Teams Assembler Production Line Relationship Specialty Start Date End Date Monse Ellington NP [address] [place] [address] PCP - General Family Medicine 06/06/23 documented as of this encounter
--- OUTSIDE RECORDS SUMMARY | 2024-10-09 14:07 | XMS_ITS | Encounter Summary ---
Author Organization [employer] Address [address] [place] [address] Care Team Providers Care Sleeve Ironer Name Role Phone Zuleymayusef Monse РИИНА Primary Care Provider [phone] Reason for Visit * Reason Comments Cough Nasal Congestion Encounter Details Date Type Department Care Team ([facility] st Contact Info) Description 10/09/2024 2:20 PM EST Office Visit [facility] [address] [place] [address] Pharyngitis with viral syndrome (Primary Dx) Social History Tobacco Use Types Packs/Day Years Used Date Smoking Tobacco: Never Passive Smoke Exposure: Never Smokeless Tobacco: Never Tobacco Cessation:Counseling Given: Not Answered Alcohol Use Standard Drinks/Week Comments Never 0 (1 standard drink = 0.6 oz pur e alcohol) Depression Answer Date Recorded Patient Health Questionnaire-9 Score 0 08/20/2024 Patient Health Questionnaire-9 Score 0 08/20/2024 Last PHQ-9: Questionnaire Data Not on file 1 10/21/2023 Housing Stability Answer Date Recorded What is your housing situation today? I have dariwn pradhan 08/20/[address] you [...] AM EST documented as of this encounter Last Filed Vital Signs Vital Sign Reading Time Taken Comments Blood Pressure 140/81 10/09/2024 1:14 PM EST Pulse 86 10/09/2024 1:14 PM EST Temperature 37 ??C (98.6 ??F) 10/09/2024 1:14 PM EST Respiratory Rate 19 10/09/2024 1:14 PM EST Oxygen Saturation 98% 10/09/2024 1:14 PM EST Inhaled Oxygen Concentration - - Weight 85.2 kg (187 lb 12.8 oz) 10/09/2024 1:14 PM EST Height 165.1 cm (5' 5 ) 10/09/2024 1:14 PM EST Body Mass Index 31.25 10/09/2024 1:14 PM EST documented in this encounter Miscellaneous Notes * Assessment & Plan Note - Sandra Escalante - 10/09/2024 1:31 PM ESTAssociated Problem(s): Pharyngitis with viral syndrome COVID, Flu and Strep swabs negative, Kids tested positive on 10/05/24. Exam consistent with pharyngitis. Will treat for strep empirically. -prescribed amoxicillin 500mg bid for 10 days -droplet precautions discussed -supportive care discussed -given work note and instructed pt to call if symptoms prolong and work requires an updated note. documented in this encounter Plan of Treatment Scheduled Orders Name Type Priority Associated Diagnoses Orde r Schedule Respiratory Viral Panel PCR Lab Routine Pharyngitis with viral syndrome Ordered: 10/09/2024 documented as of this encounter Procedures Procedure Name Priority Date/Time Associated Diagnosis Comments POCT INFLUENZA B (ID NOW RAPID MOLECULAR) Routine 10/09/2024 1:25 PM EST Pharyngitis with viral syndrome POCT INFLUENZA A (ID NOW RAPID MOLECULAR) Routine 10/09/2024 1:25 PM EST Pharyngitis with viral syndrome POCT RAPID COVID ANTIGEN Routine 10/09/2024 1:25 PM EST Pharyngitis with viral syndrome POCT RAPID STREP A Routine 10/09/2024 1: 25 PM EST Pharyngitis with viral syndrome documented in this encounter Results * POCT rapid strep A manually resulted (10/09/2024 1:25 PM EST) [facility] Rapid Strep A Screen Negative Negative, None Detected Swab 10/09/2024 1:25 PM EST us Jaimie Rod MD POINT OF CARE TEST ENTER/E DIT ORDERABLES Edited Result - Final * POCT Rapid COVID Ag (10/09/2024 1:25 PM EST) [facility] Rapid COVID Ag Negative Swab 10/09/2024 1:25 PM EST us aJimie Rod MD POINT OF CARE TEST ENTER/E DIT ORDERABLES Final Result * Influenza A (ID NOW Rapid Molecular) (10/09/2024 1:25 PM EST) [facility] Influenza A Negative Negative, Indeterminate [facility] Swab 10/09/2024 1:25 PM EST us Jaimie Rod MD POINT OF CARE TEST ENTER/E DIT ORDERABLES Final Result Performing Organization Address [facility]/ZIP Co de Phone Number [facility] [address] [place] [phone] * Influenza B (ID NOW Rapid Molecular) (10/09/2024 1:25 PM EST) Influenza B Negative Negative, Indeterminate [facility] Swab 10/09/2024 1:25 PM EST Jaimie Rod MD POINT OF CARE TEST ENTER/E DIT ORDERABLES Final Result Performing Organization Address [facility] Co de Phone Number [facility] [address] [place] [phone] documented in this encounter Visit Diagnoses Diagnosis Pharyngitis with viral syndrome- Primary documented in this encounter Additional Health Concerns Assessment Noted Time PHQ-9 Depression Total Score: 0 08/20/20 24 2:29 PM EST documented as of this encounter Care Teams Sleeve Ironer Relationship Specialty Start Date End Date Monse Ellington NP [address] [place] [address] PCP - General Family Medicine 06/06/23 documented as of this encounter
--- OUTSIDE RECORDS SUMMARY | 2024-10-09 14:07 | XMS_ITS | Clinical Summary ---
Author Organization [employer] Address [address] [facility] [address] [place] [address] Care Team Providers Care Oil Speculator Name Role Phone ZuleymaMonse holbrook ИРИНА Primary Care Provider [phone] Allergies No known active allergies Medications diphenhydrAMINE (BENADryl) 50 MG tablet Take 1 tablet (50 mg) by mouth every 6 (six) hours if needed for itching. 30 tablet 4 Active fluticasone (Flonase) 50 MCG/ACT nasal spray ADMINISTER 1 SPRAY INTO EACH NOSTRIL 2 TIMES DAILY. SHAKE GENTLY. BEFORE FIRST USE, PRIME PUMP. AFTER USE, CLEAN TIP AND REPLACE CAP. 48 mL 4 12/27/19 25 Active Kariva 0.15-0.02/0.01 MG (20/01) tablet Take 1 tablet by mouth Once per day. 4 Active amoxicillin (Amoxil) 500 MG capsuleIndicati ons:Pharyngitis with viral syndrome Take 1 tab po bid for 10 days 20 capsule 5 Active Active Problems Problem Noted Date Diagnosed Date Pharyngitis with viral syndrome 10/09/2024 Assessment & Plan (10/09/2024 1:36 PM EST): COVID, Flu and Strep swabs negative, Kids tested positive on 10/05/24. Exam consistent with pharyngitis. Will treat for strep empirically. -prescribed amoxicillin 500mg bid for 10 days -droplet precautions discussed -supportive care discussed -given work note and instructed pt to call if symptoms prolong and work requires an updated note. Missed period 08/20/2024 Encounter for preventive care 08/20/2024 Assessment & Plan (08/20/2024 3:35 PM EST): See HPI Positive test 08/20/2024 Viral URI 08/13/2024 Assessment & Plan (08/13/2024 2:09 PM EST): COVID, Strep and Flu negative. -No evidence of respiratory distress. Symptoms mild. -No evidence of dehydration. -Take tylenol for pain, no ibuprofen due to . -Supportive care advised. -Isolation recommendations discussed. -Given work note -ER precautions discussed. -Seek medical attention for worsening symptoms. Costal chondritis 02/01/2022 Umbilical hernia without obstruction and without gangrene 01/13/2018 Encounters Date Type Department Care Team Description 10/09/2024 2:20 PM EST Office Visit [facility] [address] [place] [phone] Pharyngitis with viral syndrome (Primary Dx) 10/06/2024 Patient Outreach [address] [phone] Monse Ellington NP Care Coordination ([facility] Champagne#2- Reschedule IA Appt _LVM) 09/23/2024 Patient Outreach [address] [address] Monse Ellington NP Care Coordination ([facility] Champagne#1-LVM- Attempt to reschedule missed initial assessment appt) 09/16/[address] [address] Hannah Marie, JYOTI Care Management (C3 initial assessment-lvm) 09/15/2024 Patient Outreach [address] [address] Monse Ellington NP Care Coordination ([facility] Noguera- LVM-Appt reminder for CM Maternity IA) 09/15/[address] [address] Monse Ellington NP Results 09/03/2024 Patient Outreach [address] [address] Monse Ellington NP Care Coordination ([facility] Bahman Jain, Pt Returned call- Outreach- CM Maternity Program) 09/03/2024 Patient Outreach [address] [address] Monse Ellington NP Care Coordination ([facility] Bahman Jain, TC#2- Outreach call-LVM) 08/28/[address] [address] Cathleen Lees, JYOTI Paperwork/Forms 08/28/2024 Patient Outreach [address] [address] Monse Ellington NP Care Coordination ([facility]/Kobi Jain, TC#1- Outreach-LVM) 08/25/[address] [address] Hannah Marie, JYOTI Care Management ([facility] chart review) 08/21/[address] [address] Betty Etienne, JYOTI 08/20/2024 2:45 PM EST Office Visit [address] [address] Piper Gardner MD Missed period (Primary Dx); Encounter for preventive care; Positive test 08/20/2024 Travel 08/13/2024 2:20 PM EST Office Visit [facility] [address] [address] Jaimie Rod MD Viral URI 08/11/2024 Patient Outreach [address] [address] Monse Ellington NP Pre-visit Planning ((Unable to reach for PVP screening and or LVM)) 07/27/2024 2:40 PM EST Office Visit [facility] [address] [address] Mustapha Ferminnne, [place] UTI symptoms from Last 3 Months Immunizations Name Administration Dates Next Due DTP 02/02/1998, 5,1993,08/20,1993 Hep B, Adolescent or Pediatric 1993,1992,1993 Hib (HbOC) 03/27/1995, 4,1993,06/20 IPV 1993,1993,1993 Influenza injectable quadriv alent preservative free 09/11/2019,10/04/2017 MMR 02/02/1998,03/27/1995 Meningococcal MCV4P [id number] 02/14/2006 OPV 02/02/1998 Pfizer Covid-19 Vaccine 12+ 06/30/2024 TD (adult), 2 Lf tetanus tox oid, preservative free, adsorbed 12/28/2004 Tdap 10/14/2020, 0,08/27/2017,01/06 Social History Tobacco Use Types Packs/Day Years [...] not to disclose 2023 8:53 AM EST Last Filed Vital Signs Vital Sign Reading [...] Mass Index 31.25 10/09/2024 1:14 PM EST Plan of Treatment Upcoming Encounters Date Type Department Care Team (Late st Contact Info) Description 10/09/2024 2:20 PM EST Office Visit [facility] [address] [place] [address] [phone] Pharyngitis with viral syndrome (Primary Dx) Health Maintenance Due Date Last Done Comments HIV Screening 1993 Pap Smear 2014 Cervical Cancer Screening 2023 HPV/Cotest 2023 Influenza Vaccine (#1) 2024 09/11/2019, 2017 Family Planning (PISQ) 03/03/2025 03/03/2024 Alcohol/Substance Use Screening 08/20/2025 08/20/2024 Depression Screening 08/20/2025 08/20/2024, 08/20/20 24 Tobacco Screening 08/20/2025 08/20/2024 SDOH Screening 09/03/2025 09/03/2024 DTaP/Tdap/Td Vaccines (10 - Td or Tdap) 10/14/2030 10/14/2020, 11/26/2019, 08/27/2017, Additional history exists Zoster Vaccines (1 of 2) 2043 RSV Patients and Patients Aged 60 years or older (1 - 1-dose 75+ series) 01/07/2068 Hepatitis B Vaccines Completed 1993, 1993, 1993 HIB Vaccines Completed 03/27/1995, 10/03, 1993, Additional history exists IPV Vaccines Completed 02/02/1998, 10/03, 1993, Additional history exists Meningococcal Vaccine Aged Out 02/14/2006 No chelsie jamari eligible based on patient's age to complete this topic COVID-19 Vaccine Completed 06/30/2024 Hepatitis C Screening Completed 08/20/2024 HPV Vaccines Aged Out No longer eligi ble based on patient's age to complete this topic Hepatitis A Vaccines Aged Out No long er eligible based on patient's age to complete this topic Pneumococcal Vaccine: Pediatrics (0 to 5 Years) and At-Risk Patients (6 to 49) Years) Aged Out No longer eligible based on patient's age to complete this topic RSV under 20 months Aged Out No longe r eligible based on patient's age to complete this topic Rotavirus Vaccines Aged Out No longer eligible based on patient's age to complete this topic Procedures Procedure Name Priority Date/Time Associated Diagnosis Comments POCT RAPID STREP A Routine 10/09/2024 1: 25 PM EST Pharyngitis with viral syndrome POCT RAPID COVID ANTIGEN Routine 10/09/2024 1:25 PM EST Pharyngitis with viral syndrome POCT INFLUENZA A (ID NOW RAPID MOLECULAR) Routine 10/09/2024 1:25 PM EST Pharyngitis with viral syndrome POCT INFLUENZA B (ID NOW RAPID MOLECULAR) Routine 10/09/2024 1:25 PM EST Pharyngitis with viral syndrome HCG, TOTAL, QN Routine 08/20/2024 3:36 PM EST Missed period VARICELLA ZOSTER ANTIBODY, IGG Routine 08/20/2024 3:36 PM EST Encounter for preventive care MEASLES, MUMPS, AND RUBELLA (MMR) AB (IGG) PANEL, IMMUNE STATUS Routine 08/20/2024 3:36 PM EST Encounter for preventive care HEPATITIS PANEL, GENERAL Routine 08/20/2024 3:36 PM EST Encounter for preventive care T-SPOT(R).TB Routine 08/20/2024 Encounter for preventive care POCT INFLUENZA B (ID NOW RAPID MOLECULAR) Routine 08/13/2024 2:06 PM EST Viral URI POCT INFLUENZA A (ID NOW RAPID MOLECULAR) Routine 08/13/2024 2:06 PM EST Viral URI POCT RAPID STREP A Routine 08/13/2024 2: 06 PM EST Viral URI POCT RAPID COVID ANTIGEN Routine 08/13/2024 2:06 PM EST Viral URI POCT , URINE Routine 07/27/2024 3:53 PM EST UTI symptoms CULTURE, URINE, ROUTINE Routine 07/27/2024 3:18 PM EST UTI symptoms POCT URINALYSIS DIPSTICK Routine 07/27/2024 3:17 PM EST UTI symptoms BACTERIAL VAGINOSIS PANEL Routine 07/20/2024 12:00 AM EST CHLAMYDIA/N. GONORRHOEAE RNA, TMA, UROGENITAL Routine 07/20/2024 12:00 AM EST from Last 3 Months Results * Influenza B (ID NOW Rapid Molecular) (10/09/2024 1:25 PM EST) Only the most recent of2 resultswithin the time period is included. [facility] Influenza B Negative Negative, Indeterminate [facility] Swab 10/09/2024 1:25 PM EST Jaimie Rod MD POINT OF CARE TEST ENTER/E DIT ORDERABLES Final Result Performing Organization Address [facility] de Phone Number [facility] [address] [place] [phone] * Influenza A (ID NOW Rapid Molecular) (10/09/2024 1:25 PM EST) Only the most recent of2 resultswithin the time period is included. [facility] Influenza A Negative Negative, Indeterminate [facility] Swab 10/09/2024 1:25 PM EST Jaimie Rod MD POINT OF CARE TEST ENTER/E DIT ORDERABLES Final Result Performing Organization Address [facility] de Phone Number [facility] [address] [place] [phone] * POCT Rapid COVID Ag (10/09/2024 1:25 PM EST) Only the most recent of2 resultswithin the time period is included. [facility] Rapid COVID Ag Negative Swab 10/09/2024 1:25 PM EST Jaimie Rod MD POINT OF CARE TEST ENTER/E DIT ORDERABLES Final Result * POCT rapid strep A manually resulted (10/09/2024 1:25 PM EST) Only the most recent of2 resultswithin the time period is included. [facility] Rapid Strep A Screen Negative Negative, None Detected Swab 10/09/2024 1:25 PM EST us Jaimie Rod MD POINT OF CARE TEST ENTER/E DIT ORDERABLES Edited Result - Final * Measles, Mumps, and Rubella (MMR) Antibodies??(IgG) Panel, Immune Status (08/20/2024 3:36 PM EST) Mumps Virus IgG Antibody 33.90 AU/mL [facility] Comment:AU/mL Interpretation ------- <9.00 Not consistent with immunity9.00-10.99 Equivocal>10.99 Consistent with immunityThe presence of mumps IgG antibody suggests immunizationor past or current infection with mumps virus. Rubella IgG Antibody 1.95 Index [facility] Comment:Index Interpretation ----- <0.90 Not consistent with immunity 0.90-0.99 Equivocal > or = 1.00 Consistent with immunityThe presence of rubella IgG antibody suggestsimmunization or past or current infection withrubella virus.THIS TEST WAS PERFORMED AT:[facility] [place] [phone] MARTIN MD Rubeola IgG (Measles) 90.20 AU/mL [facility] Comment:AU/mL Interpretation ----- <13.50 Not consistent with jywzwtje54.50-16.49 Equivocal>16.49 Consistent with immunityThe presence of measles IgG suggests immunization orpast or current infection with measles virus.For additional information, please refer tohttp://education.MapSense/faq/DDZ473(This link is being provided for informational/educational purposes only.) Blood Venous blood specimen / Unknown 08/20/2024 3:36 PM EST 08/20/2024 4:05 PM EST us Piper Polk MD LAB BLOOD ORDERABLES Final Result [facility] [address] [place] [phone] * Hepatitis A,B,C Profile (08/20/2024 3:36 PM EST) Pathologist [facility] Hepatitis A IgM Nonreactive Nonreactive [facility] Comment:IgM antibodies to CHAN V not detected; does not exclude earlyacute or recovered HAV infection. ~Hepatitis B Surface Antibody NONREACTIVE Nonreactive [facility] Comment:Nonreactive: < 8.00 mIU/mL Hepatitis B Core Antibody Nonreactive Nonreactive [facility] Hepatitis C Antibody Nonreactive Nonreactive [facility] Comment:Antibodies to HCV no t detected; does not exclude early acuteHCV infection. Hepatitis B Surface Ag Negative Negative [facility] Blood Venous blood specimen / Unknown 08/20/2024 3:36 PM EST 08/20/2024 4:05 PM EST Piper Polk MD LAB BLOOD ORDERABLES Final Result [facility] [address] [place] [phone] * Varicella Zoster Antibody, IgG (08/20/2024 3:36 PM EST) [facility] Varicella IgG Antibody 9.39 S/CO [facility] Comment:Signal to Cut-off S/ CO Interpretation --------- <1.00 Negative - Antibody not detected > or = 1.00 Positive - Antibody detected A positive result indicates that the patient has antibody to VZV but does not differentiate between an active or past infection. The clinical diagnosis must be interpreted in conjunction with the clinical signs and symptoms of the patient. This assay reliably measures immunity due to previous infection but may not be sensitive enough to detect antibodies induced by vaccination. Thus, a negative result in a vaccinated individual does not necessarily indicate susceptibility to VZV infection. A more sensitive test for vaccination-induced immunity is Varicella Zoster Virus Antibody Immunity Screen, ACIF.THIS TEST WAS PERFORMED AT:[facility] [place] [phone] MARTIN MD Blood Venous blood specimen / Unknown 08/20/2024 3:36 PM EST 08/20/2024 4:05 PM EST us Piper Polk MD LAB BLOOD ORDERABLES Final Result Performing Organization Address [facility] Co de Phone Number [facility] [address] [place] [phone] * hCG, Total, Quantitative (08/20/2024 3:36 PM EST) HCG Quantitative 15,872 mIU/mL [facility] Comment:Weeks post LMP Appro ximate hCG(Last Menstrual Period) Range (mIU/ml)3 - 4 weeks 9 - 1304 - 5 weeks 75 - 2,6005 - 6 weeks 850 - 20,8006 - 7 weeks 4000 - 100,2007 - 12 weeks 11,500 - 289,15520 - 16 weeks 18,300 - 137,60844 - 29 weeks (2nd trimester) 1,400 - 53,46042 - 41 weeks (3rd trimester) 940 - 60,000The Spaulding B- hCG assay is used for the early detection ofpregnancy; it cannot be used to diagnose any conditionunrelated to . If a B-hCG level is not supportedby the clinical evidence, results should be confirmed by analternative method (qualitative urine hCG, for example). Blood Venous blood specimen / Unknown 08/20/2024 3:36 PM EST 08/20/2024 4:05 PM EST us Piper Polk MD LAB BLOOD ORDERABLES Final Result Performing Organization Address [facility]/ZIP Co de Phone Number [facility] [address] [place] [address] [phone] * T-SPOT??.TB (08/20/2024) Piper Polk MD LAB BLOOD ORDERABLES Final Result Performing Organization Address City/[facility]/ZIP Co de Phone Number [facility] [address] [place] [phone] * POCT , urine manually resulted (07/27/2024 3:53 PM EST) Preg Test, Ur Negative Negative, Indeterminate, None Detected, Invalid, Specimen unsatisfactory for evaluation, Weakly Positive Urine 07/27/2024 3:53 PM EST [facility] POINT OF CARE TEST ENTER/EDIT O RDERABLES Final Result * Culture, Urine, Routine (07/27/2024 3:18 PM EST) Urine Urine specimen obtained by clean catch procedure / Unknown 07/27/2024 3:18 PM EST 07/27/2024 5:56 PM EST Comment:UACC Narrative [facility] - 07/30/2024 7:39 AM EST Escherichia coli Quant > 100,000 cfu/mL Escherichia coli: Ampicillin <=2(S) Escherichia coli: Cefazolin <=1(S) Escherichia coli: Cefepime <=0.12(S) Escherichia coli: Ceftriaxone <=0.25(S) Escherichia coli: Ciprofloxacin <=0.06(S) Escherichia coli: Gentamicin <=1(S) Escherichia coli: Nitrofurantoin <=16(S) Escherichia coli: Trimethoprim/Sulfamethoxazole <=20(S) Specimen Source: Urine clean catch Result [facility] LAB MICROBIOLOGY - GENERAL ORDE RABLES Final Result [facility] [address] [place] [phone] * (ABNORMAL) POCT urinalysis dipstick manually resulted (07/27/2024 3:17 PM EST) Color, UA Yellow Clarity, UA Cloudy Glucose, UA Negative Bilirubin, UA Negative Ketones, UA Negative Spec Grav, UA 1.020 Blood, UA Negative Negative, None Detected pH, UA 7.0 Protein, UA 1+ 70+ Comment:30mg Urobilinogen, UA 1.0 Leukocytes, UA Trace Negative, Rare, Trace Nitrite, UA Positive(A) Negative, None Detected Appearance, UA OK Urine 07/27/2024 3:17 PM EST Lauren Fermin [place] POINT OF CARE TEST ENTER/EDIT O RDERABLES Final Result * Bacterial Vaginosis (07/20/2024 12:00 AM EST) TRICHOMONAS VAGINALIS DETECTION BY PCR NOT DETECTED Not Detect [facility] BACTERIAL VAGINOSIS DETECTION BY PCR NEGATIVE Negative [facility] Comment:The BV organism targ ets of the Xpert Xpress MVP test can becommensal in women; Xpert Xpress MVP positive results forbacterial vaginosis should be considered in conjunction withother clinical and patient information to determine thedisease status. Organisms that are not detected by the XpertXpress MVP test have also been reported to be associatedwith BV and aerobic vaginitis.The Xpert Xpress MVP test performance has not been evaluatedin patients under the age of 14. SUSAN GROUP DETECTION BY PCR NOT DETECTED Not Detect [facility] Susan glab krusei PCR NOT DETECTED Not Detect [facility] 07/20/2024 07/20/2024 Generic External Data Provider LAB MICROBIOLOGY - GENERAL ORDERABLES Final Result [facility] [address] [place] [phone] * Chlamydia/N. Gonorrhoeae RNA, TMA, Urogenitial (07/20/2024 12:00 AM EST) Pathologist [facility] CT PCR NOT DETECTED Not Detect. [facility] Comment:A not detected test result does not exclude the possibilityof infection because test results can be affected byimproper specimen collection, concurrent antibiotic therapy,or the number of organisms in the specimen which may bebelow the sensitivity of the test. As with many diagnostictests, results from the Xpert CT/NG assay should beinterpreted in conjunction with other laboratory andclinical data available to the clinician.Xpert CT/NG performance has not been evaluated in patientsless than 14 years of age. The assay should not be used forthe evaluationof suspected sexual abuse or for other medico-legalindications. Additional testing is recommended in anycircumstance when false positive or false negative resultscould lead to adverse medical, social or psychologicalconsequences. NG PCR NOT DETECTED Not Detect. [facility] Comment:A not detected test result does not exclude the possibilityof infection because test results can be affected byimproper specimen collection, concurrent antibiotic therapy,or the number of organisms in the specimen which may bebelow the sensitivity of the test. As with many diagnostictests, results from the Xpert CT/NG assay should beinterpreted in conjunction with other laboratory andclinical data available to the clinician.Xpert CT/NG performance has not been evaluated in patientsless than 14 years of age. The assay should not be used forthe evaluationof suspected sexual abuse or for other medico-legalindications. Additional testing is recommended in anycircumstance when false positive or false negative resultscould lead to adverse medical, social or psychologicalconsequences. 07/20/2024 07/20/2024 Narrative [facility] - 07/21/2024 6:36 AM EST Vaginal us Generic External Data Provider LAB MICROBIOLOGY - GENERAL ORDERABLES Final Result [facility] [address] [place] [phone] from Last 3 Months Insurance * Guarantor: Brooklyn Naylor Account Type Relation to Patient Date of Phone Billing Address Personal/Family Self 1995 [address] [facility] [address] [place] [address] [facility] Care Teams Oil Speculator Relationship Specialty Start Date End Date Monse Ellington NP [address] [place] [phone] PCP - General Family Medicine 06/06/23
--- OUTSIDE RECORDS SUMMARY | 2024-10-09 14:07 | XMS_ITS | Clinical Summary ---
Author Organization [facility] Address [address] [place] [phone] Phone Care Team Providers Care Vacuum Kettle Cook Name Role Phone Unavailable Primary Care Provider Unavailabl e Immunizations Immunization Administration Dates Next Due DTP 02/02/1998, 5,1993,08/20,1993 Hep B, ped/adol 1993,1993,1993 Hib (HbOC) 03/27/1995, 4,1993,06/20 IPV 1993,1993,1993 MMR 02/02/1998,03/27/1995 Meningococcal Conj (Menactra) MCV4P 02/14/2006 OPV 02/02/1998 Td (adult) (MBL), 2 Lf tetan us toxoid, PF, adsorbed 12/28/2004 Family History Relation Name Status Comments Brother 1 Alive Brother: Asthma , Alive and well, Alive and well Brother 2 Alive Brother: Asthma , Alive and well, Alive and well Mother Mother: Asthma Sister Alive Sister: Asthma Social History Tobacco Use Types Packs/Day Years Used Date Smoking Tobacco: Never Assessed Comments Unknown Sex and Gender Information Value Date Recorded Sex Assigned at Not on file Legal Sex Female 4:27 PM EDT Gender Identity Not on file Sexual Orientation Not on file Plan of Treatment Health Maintenance Due Date Last Done Comments DTaP,Tdap,and Td Vaccines (6 - Tdap) 12/29/2004 12/28/2004, 02/02/1998, 03/27/1995, Additional history exists Varicella Vaccines (1 of 2 - 13+ 2-dose series) 2006 Influenza Vaccines (#1) 2024 COVID-19 Vaccine ( season) 2024 Hepatitis B Vaccines Completed 1993, 1993, 1993 HIB Vaccines Completed 03/27/1995, 10/03, 1993, Additional history exists IPV Vaccines Completed 02/02/1998, 10/03, 1993, Additional history exists MMR Vaccines Completed 02/02/1998, 03/27/1995 Meningococcal Vaccine Aged Out 02/14/2006 No chelsie jamari eligible based on patient's age to complete this topic HPV Vaccines Aged Out No longer eligi ble based on patient's age to complete this topic Hepatitis A Vaccines Aged Out No long er eligible based on patient's age to complete this topic Men B Vaccine Aged Out No longer elig ible based on patient's age to complete this topic Pneumococcal Vaccine Aged Out No long er eligible based on patient's age to complete this topic
[2024-10-10 08:32] LABS: Syphilis Screen Nonreactive (Nonreactive)
[2024-10-10 08:38] LABS: HBsAGNum1 0.41 S/CO (0.00-0.99); HIV AB/AG Nonreactive (Nonreactive); HIV Num 1 0.06 S/CO (0.00-0.99); Hepatitis B Surface Antigen Negative (Negative); ~HepC Num1 0.12 S/CO (0.00-0.79); ~Hepatitis C Antibody Nonreactive (Nonreactive)
[2024-10-10 09:13] LABS: Adenovirus PCR Not Detected (Not Detect.); Bordetella parapertussis PCR Not Detected (Not Detect.); Bordetella pertussis PCR Not Detected (Not Detect.); Chlamydia pneumoniae PCR Not Detected (Not Detect.); Coronavirus 229E PCR Not Detected (Not Detect.); Coronavirus HKU1 PCR Not Detected (Not Detect.); Coronavirus NL63 PCR Detected (Not Detect.); Coronavirus OC43 PCR Not Detected (Not Detect.); Human metapneumovirus PCR Not Detected (Not Detect.); Influenza A PCR Not Detected (Not Detect.); Influenza B PCR Not Detected (Not Detect.); Mycoplasma pneumoniae PCR Not Detected (Not Detect.); Parainfluenza 1 PCR Not Detected (Not Detect.); Parainfluenza 2 PCR Not Detected (Not Detect.); Parainfluenza 3 PCR Not Detected (Not Detect.); Parainfluenza 4 PCR Not Detected (Not Detect.); RSV PCR Not Detected (Not Detect.); Rhino/Enterovirus PCR Not Detected (Not Detect.)
[2024-10-10 09:14] LABS: SARS-CoV-2 PCR Not Detected (Not Detect.)
[2024-10-12 03:03] LABS: TS Negative Control Passed; TS Panel A 0; TS Panel B 1; TS Positive Control Passed; TSpotTB Negative (Negative)
== END 2024-10-09 13:45 | disposition home or self-care (01) ==
LOC: HO.HHCL 13:44
PROVIDERS: Advanced Practice Midwife; Internal Medicine; Visit Provider Family Medicine
DX: Z00.00 Encounter for general adult medical examination without abnormal findings (principal); I83.11 Varicose veins of right lower extremity with inflammation; Z30.09 Encounter for other general counseling and advice on contraception; Z11.3 Encounter for screening for infections with a predominantly sexual mode of transmission; Z30.011 Encounter for initial prescription of contraceptive pills; J02.9 Acute pharyngitis, unspecified; B34.9 Viral infection, unspecified; Z11.52 Encounter for screening for COVID-19
CPT/HCPCS: 36415; 86481; 86780; 86803; 87340; 87389; 87633

== ENCOUNTER 2024-11-29 22:58 | Emergency (ER) | payer MEDICAID, SELFPAY ==
[2024-11-29 23:04] VITALS: BP 121/77; PULSE 83; RESP 16; TEMP 36.5; O2SAT 97; BMI 32.2
[2024-11-30 00:15] LABS: IDNOW Serial# 6674DD1D; Strep A Nucleic Acid Negative (Negative)
[2024-11-30 00:38] LABS: Influenza A PCR NEGATIVE (Negative); Influenza B PCR NEGATIVE (Negative); Resp Syncy Virus RNA Qual PCR NEGATIVE (Negative); SARS COV2 PCR INHOUSE NEGATIVE (Negative)
[2024-11-30 01:33] VITALS: O2SAT 96
--- NOTE | 2024-11-30 01:57 | ED_ITS ---
HPI - General Adult General Chief complaint: Upper Respiratory Symptoms Stated complaint: congestion, cough, sore throat Time Seen by Provider: 11/30/24 01:04 Source: patient Limitations: no limitations History of Present Illness ED Provider: Meera Quick PA-C HPI narrative: 29-year-old female presents with cough and cold symptoms x1 day. All of her children are sick with similar symptoms. Associated sore throat, nasal congestion headache. No fevers. Related Data Previous Rx's ?Medication ?Instructions ?Recorded desogestrel-e.estradiol 0.15 1 tab PO DAILY #84 tabs 07/20/24 mg-0.02 mg(21)/e.estrad 0.01 mg(5) tablet metronidazole 0.75 % (37.5 mg/5 1 appful vaginal BID 5 days #70 07/20/24 gram) vaginal gel grams metronidazole 500 mg tablet 500 mg PO Q12H #14 tabs 07/20/24 Allergies Allergy/AdvReac Type Severity Reaction Status Date / Time No Known Drug Allergies Allergy Unknown UNKNOWN Verified 11/29/24 23:08 [NO KNOWN DRUG ALLERGIES] Review of Systems Review of Systems: Yes all other systems are reviewed and are negative Constitutional: Constitutional: Reports fatigue, Denies fever(s) and Reports headache(s) ENT: Reports headache(s), Reports nasal congestion and Reports sore throat Cardiovascular: Cardiovascular: Denies chest pain and Denies dyspnea on exertion Respiratory: Respiratory: Reports cough and Denies dyspnea on exertion Neurologic: Reports headache(s) Endocrine: Endocrine: Reports fatigue PMFSH Past Medical History Attestation statement: The following information was validated with the patient. Medical History Umbilical hernia Grand multipara Surgical History Hx of hand surgery H/O umbilical hernia repair (~2017) Family History Family History Mother No problems noted. Father Hx of diabetes mellitus Brother Hx of diabetes mellitus Maternal Grandfather No problems noted. Maternal Grandmother No problems noted. Paternal Grandfather No problems noted. Paternal Grandmother No problems noted. Other H/O heart bypass surgery Heart attack Social History Social History Household Members: Family and Children Alcohol intake: never Patient Tobacco Use Status: Former Tobacco user Smoked in Last 30 Days: No Use of substances other than those prescribed or required for medical reasons: No Advance Directives: No Advance Directives Information Provided: Yes Do you have a plan to hurt others: No Plan Patient : No service: No Current occupational status: unemployed Physical Exam ED Vital Signs: Vital Signs - 24 hr 11/29/24 23:04 11/30/24 01:33 Temperature 97.7 F Pulse Rate 83 Respiratory Rate 16 Blood Pressure 121/77 Pulse Oximetry 97 96 Oxygen Delivery Method Room Air Room Air BMI result Body Mass Index 32.2 Const Other: Alert Orientation/consciousness: patient oriented x3 HENMT Other: nasal congestion Resp Effort & Inspection: normal respiratory effort Cardio Other: normal peripheral perfusion Skin Other: warm dry no rash Neuro General: patient oriented x3, gait normal, no focal motor deficits and CN's II- XI intact bilaterally Psych Other: calm cooperative Medical Decision Making Medical Decision Making MDM Narrative: 29-year-old female presents with cough and cold symptoms x1 day. All of her children are sick with similar symptoms. Associated sore throat, nasal congestion headache. No fevers. no chronic issues History: Per patient I have considered the following differential diagnoses: Viral syndrome, pneumonia, bronchitis, strep pharyngitis Plan: Viral panel and strep screen obtained from triage, everything is negative I have independently reviewed the following tests: Viral panel negative strep screen negative Lab Data Labs: Lab Results 11/29/24 Range/Units 23:43 Influenza Type A (PCR) NEGATIVE (Negative) Influenza Type B (PCR) NEGATIVE (Negative) RSV RNA Qual (PCR) NEGATIVE (Negative) SARS-CoV-2 RNA (RT-PCR) NEGATIVE (Negative) S. pyogenes GrpA MARY Negative (Negative) Discharge Plan Discharge Clinical Impression: Acute viral syndrome Patient Disposition: Home, Self-Care Instructions: Viral Syndrome (ED) Additional Instructions: the viral panel and strep screen were negative. You have yet another respiratory virus causing your symptoms. See home care instructions. Follow up with your primary care provider as needed. Prescriptions: No Action desog-e.estradiol/e.estradiol 0.15-0.02 mgx21 /0.01 mg x 5 tablet 1 tab PO DAILY Qty: 84 4RF metronidazole 0.75 % (37.5mg/5 gram) gel 1 appful vaginal BID 5 Days Qty: 70 0RF metronidazole 500 mg tablet 500 mg PO Q12H Qty: 14 0RF Stand Alone Forms: Work/School Release Print Language: South Sudanese
[2024-11-30 02:20] VITALS: BP 121/74; PULSE 89; RESP 18; TEMP 36.7; O2SAT 96
== END 2024-11-30 02:21 | disposition home or self-care (01) ==
PROVIDERS: Emergency Provider Emergency Medicine
DX: B34.9 Viral infection, unspecified (principal); R05.9 Cough, unspecified; Z03.818 Encounter for observation for suspected exposure to other biological agents ruled out
CPT/HCPCS: 0241U; 87651; 99283; 99284

== ENCOUNTER 2025-02-01 16:11 | Outpatient (REF) | payer MEDICAID, SELFPAY ==
--- OUTSIDE RECORDS SUMMARY | 2025-02-01 17:05 | XMS_ITS | Encounter Summary ---
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 Role Phone Monse Ellington NP Primary Care Provider [phone] Reason for Visit * Reason Comments Cough Sore Throat Encounter Details Date Type Department Care Team ([facility] st Contact Info) Description 02/01/2025 1:40 PM EDT Office Visit [facility] [address] [place] [address] Reji Teixeira MD [address] [place] [address] Sore throat Social History Tobacco Use Types Packs/Day Years [...] Sign Reading Time Taken Comments Blood Pressure 129/80 02/01/2025 1:37 PM EDT Pulse 80 02/01/2025 1:37 PM EDT Temperature - - Respiratory Rate 18 02/01/2025 1:37 PM EDT Oxygen Saturation 99% 02/01/2025 1:37 PM EDT Inhaled Oxygen Concentration - - Weight 88 kg (194 lb) 02/01/2025 1:37 PM EDT Height - - Body Mass Index 32.28 10/09/2024 1:14 PM EST documented in this encounter Progress Notes * Reji Teixeira MD - 02/01/2025 1:40 PM EDT ALEX Naylor is a 30 y.o. female who presents for Cough and Sore Throat. Cough This is a new problem. The current episode started in the past 7 days. The problem has been gradually worsening. The cough is Non-productive. Associated symptoms include a sore throat. Pertinent negatives include no chest pain, chills, ear congestion, ear pain, fever, headaches, heartburn, hemoptysis, myalgias, nasal congestion, postnasal drip, rash, rhinorrhea, shortness of breath, sweats, weight loss or wheezing. Sore Throat Associated symptoms include coughing. Pertinent negatives include no ear pain, headaches or shortness of breath. No sick contact. Sudden onset of sore throat 2 days ago associated with a nonproductive cough. No associated fever. Problem List[1] Allergies[2] Medications Ordered Prior to Encounter[3] Review of Systems Constitutional: Negative for chills, fever and weight loss. HENT: Positive for sore throat. Negative for ear pain, postnasal drip and rhinorrhea. Respiratory: Positive for cough. Negative for hemoptysis, shortness of breath and wheezing. Cardiovascular: Negative for chest pain. Gastrointestinal: Negative for heartburn. Musculoskeletal: Negative for myalgias. Skin: Negative for rash. Neurological: Negative for headaches. OBJECTIVE Vitals: 02/01/25 1337 BP: 129/80 BP Location: Left arm Patient Position: Sitting BP Cuff Size: Adult Pulse: 80 Resp: 18 SpO2: 99% Weight: 194 lb (88 kg) Physical Exam Constitutional: General: She is not in acute distress. Appearance: Normal appearance. She is not ill-appearing, toxic-appearing or diaphoretic. HENT: Mouth/Throat: Pharynx: Pharyngeal swelling and posterior oropharyngeal erythema present. No oropharyngeal exudate. Tonsils: No tonsillar exudate or tonsillar abscesses. Pulmonary: Effort: Pulmonary effort is normal. Neurological: Mental Status: She is alert. Assessment/Plan Assessment/Plan Diagnoses and all orders for this visit: Sore throat Comments: Most likely a viral pharyngitis Supportive care: Fluids, rest, Ibuprofen, return to work in 2 days. Throat culture will be sent and she will be called with results. Orders: - Influenza A (ID NOW Rapid Molecular) - Influenza B (ID NOW Rapid Molecular) - POCT Rapid COVID Ag - POCT rapid strep A manually resulted - ibuprofen 600 MG tablet; Take 1 tablet (600 mg) by mouth 3 times daily. - Culture, Throat [1] Patient Active Problem List Diagnosis Umbilical hernia without obstruction and without gangrene Costal chondritis Viral URI Missed period Encounter for preventive care Positive test Pharyngitis with viral syndrome [2] No Known Allergies [3] Current Outpatient Medications on File Prior to Visit Medication Sig Dispense Refill amoxicillin (Amoxil) 500 MG capsule Take 1 tab po bid for 10 days 20 capsule 0 diphenhydrAMINE (BENADryl) 50 MG tablet Take 1 tablet (50 mg) by mouth every 6 (six) hours if needed for itching. 30 tablet 0 fluticasone (Flonase) 50 MCG/ACT nasal spray ADMINISTER 1 SPRAY INTO EACH NOSTRIL 2 TIMES DAILY. SHAKE GENTLY. BEFORE FIRST USE, PRIME PUMP. AFTER USE, CLEAN TIP AND REPLACE CAP. 48 mL 0 Kariva 0.15-0.02/0.01 MG (20/01) tablet Take 1 tablet by mouth Once per day. No current facility-administered medications on file prior to visit. documented in this encounter Plan of Treatment Scheduled Orders Name Type Priority Associated Diagnoses Orde r Schedule Culture, Throat Microbiology Routine Sore throat Ordered: 02/01/2025 documented as of this encounter Procedures Procedure Name Priority Date/Time Associated Diagnosis Comments POCT INFLUENZA B (ID NOW RAPID MOLECULAR) Routine 02/01/2025 1:54 PM EDT Sore throat POCT RAPID COVID ANTIGEN Routine 02/01/2025 1:54 PM EDT Sore throat POCT INFLUENZA A (ID NOW RAPID MOLECULAR) Routine 02/01/2025 1:53 PM EDT Sore throat POCT RAPID STREP A Routine 02/01/2025 1: 53 PM EDT Sore throat documented in this encounter Results * POCT Rapid COVID Ag (02/01/2025 1:54 PM EDT) Rapid COVID Ag Negative Swab 02/01/2025 1:54 PM EDT us Reji Teixeira MD POINT OF CARE TEST ENTER/ED IT ORDERABLES Final Result * Influenza B (ID NOW Rapid Molecular) (02/01/2025 1:54 PM EDT) Influenza B Negative Negative, Indeterminate [facility] Swab 02/01/2025 1:54 PM EDT us Reji Teixeira MD POINT OF CARE TEST ENTER/ED IT ORDERABLES Final Result [facility] [address] [place] [address] [phone] * POCT rapid strep A manually resulted (02/01/2025 1:53 PM EDT) Rapid Strep A Screen Negative Negative, None Detected Swab 02/01/2025 1:53 PM EDT us Reji Teixeira MD POINT OF CARE TEST ENTER/ED IT ORDERABLES Final Result * Influenza A (ID NOW Rapid Molecular) (02/01/2025 1:53 PM EDT) Influenza A Negative Negative, Indeterminate [facility] Swab 02/01/2025 1:53 PM EDT us Reji Teixeira MD POINT OF CARE TEST ENTER/ED IT ORDERABLES Final Result 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
== END 2025-02-01 16:12 | disposition home or self-care (01) ==
LOC: HO.HHCLNP 16:11
PROVIDERS: Visit Provider Internal Medicine
DX: J02.9 Acute pharyngitis, unspecified (principal)
CPT/HCPCS: 87070

== ENCOUNTER 2025-03-05 20:55 | Emergency (ER) | payer MEDICAID, SELFPAY ==
[2025-03-05 21:00] VITALS: BP 120/72; PULSE 85; RESP 17; TEMP 36.7; O2SAT 99; BMI 33.5
--- NOTE | 2025-03-05 21:08 | ED.GENADULT ---
HPI - General Adult General Chief complaint: Skin/Abscess/Foreign Body Stated complaint: rash on both upper arms & thigh Time Seen by Provider: 03/05/25 21:07 History of Present Illness ED Provider: Chadd VILLASEÑOR narrative: The patient is a 30-year-old female who has been having problems with the an itchy rash on her upper arms near her axilla and also in the thighs between her legs for about 5-6 days. She has had no fever, sweats, chills. She says that the rash began the day after she has been in her brother's pool. She denies being exposed to poison carole. She says that no one else who used to the pool had any similar symptoms. She has had no fever sweats or chills. She does not feel that rash is spreading but she feels the itchiness is very severe and debilitating. She has been using topical hydrocortisone without success. She has not been using Benadryl for itchiness. Related Data Previous Rx's ?Medication ?Instructions ?Recorded desogestrel-e.estradiol 0.15 1 tab PO DAILY #84 tabs 07/20/24 mg-0.02 mg(21)/e.estrad 0.01 mg(5) tablet metronidazole 0.75 % (37.5 mg/5 1 appful vaginal BID 5 days #70 07/20/24 gram) vaginal gel grams metronidazole 500 mg tablet 500 mg PO Q12H #14 tabs 07/20/24 cetirizine 10 mg tablet 10 mg PO DAILY PRN itchiness #10 03/05/25 tabs prednisone 5 mg tablet 5 mg PO DIRECTED #66 tabs 03/05/25 Allergies Allergy/AdvReac Type Severity Reaction Status Date / Time No Known Drug Allergies (NO Allergy Unknown UNKNOWN Verified 03/05/25 21:01 KNOWN DRUG ALLERGIES) Review of Systems Review of Systems: Yes all other systems are reviewed and are negative [facility] Past Medical History Medical History Umbilical hernia Grand multipara Surgical History Hx of hand surgery H/O umbilical hernia repair (~2017) Family History Family History Mother No problems noted. Father Hx of diabetes mellitus Brother Hx of diabetes mellitus Maternal Grandfather No problems noted. Maternal Grandmother No problems noted. Paternal Grandfather No problems noted. Paternal Grandmother No problems noted. Other H/O heart bypass surgery Heart attack Social History Social History Household Members: Family and Children Alcohol intake: never Patient Tobacco Use Status: Former Tobacco user Advance Directives: No Advance Directives Information Provided: No Do you have a plan to hurt others: No Plan Patient : No service: No Current occupational status: unemployed Physical Exam ED Vital Signs: Vital Signs - 24 hr 03/05/25 21:00 03/05/25 21:26 Temperature 98.1 F 98.1 F Pulse Rate 85 85 Respiratory Rate 17 17 Blood Pressure 120/72 120/72 Pulse Oximetry 99 99 Oxygen Delivery Method Room Air Room Air BMI result Body Mass Index 33.5 Const Other: The patient looks as though she is an ordinarily healthy 30-year-old. She is awake and alert and seems in no distress. She is pleasant and cooperative, nontoxic. Orientation/consciousness: patient oriented x3 HENMT Other: The face is symmetrical. ?Mucous membranes moist. Eyes Other: Pupils are round equal, conjunctivae are clear, extraocular movements intact Neck Neck: Yes normal visual inspection Resp Effort & Inspection: normal respiratory effort Auscultation: clear to auscultation bilaterally Cardio Rate: regular rate Rhythm: regular rhythm Heart sounds: S1 normal heart sound present and S2 normal heart sound present Skin Other: The patient has skin lesions on the upper aspect of each proximal medial upper arm and also to the skin of the proximal thighs medially. The lesions are characterized by pale erythema and small vesicles. This picture is from the the patient's right arm Neuro General: patient oriented x3, tone normal, moves all extremities, no focal motor deficits and CN's II-XI intact bilaterally Extrem Other: No peripheral edema Medical Decision Making Medical Decision Making MDM Narrative: The patient presents with a 5 day history of a very itchy rash that dislocated in the proximal medial upper arms and had in the medial thighs. The appearance of the rash looks very much like the rash a poison carole. This does not have the appearance of a candidal infection. I will treat this as if it is a poison carole type dermatitis with a course of prednisone. She will receive 60 mg now and then will taper over a course of 11 days. Discharge Plan Discharge Clinical Impression: Dermatitis Patient Disposition: Home, Self-Care Instructions: Poison Carole (ED) Additional Instructions: I think your itchy rashes some kind of a topical allergic reaction. You has been started on prednisone as an anti-inflammatory medication. Please take the prednisone once a day as prescribed. You will be prescribed a taper. This means you will be taking a lot of pills on the 1st day (tomorrow), and each day you will take 1 pill less than the previous day. My hope is that this will significantly help your itchiness. I have also sent a prescription for cetirizine, a nonsedating antihistamine which you may take once a day. This may help with the itchiness as well. At night you may use [id number] diphenhydramine (Benadryl). This can make you sleepy but it can be helpful for itchiness at night. Please contact your regular doctor on Saturday if not improving. Return to the emergency room if significantly worse. Prescriptions: New prednisone 5 mg tablet 5 mg PO DIRECTED Qty: 66 0RF Rx Instructions: Take 11 tabs by mouth daily x1 day, then 10 tabs by mouth daily x1 day, then 9 tablets by mouth daily x1 day, continue 1 tablet less per day until done. cetirizine 10 mg tablet 10 mg PO DAILY PRN (Reason: itchiness) Qty: 10 0RF No Action desog-e.estradiol/e.estradiol 0.15-0.02 mgx21 /0.01 mg x 5 tablet 1 tab PO DAILY Qty: 84 4RF metronidazole 0.75 % (37.5mg/5 gram) gel 1 appful vaginal BID 5 Days Qty: 70 0RF metronidazole 500 mg tablet 500 mg PO Q12H Qty: 14 0RF Referrals: [facility] [Provider Group] Center,[facility] [Primary Care Provider, Medical] Interventions: ED Discharge Assessment Last Done: 03/05/25 21:26 Print Language: Norwegian
--- NOTE | 2025-03-05 21:10 | PC.NURSE ---
Pt presents to the ED for evaluation of bilateral under arm and inner thigh itchiness with rash after swimming this past Saturday. Tried hydrocortisone cream, lotion, Vaseline, baby oil with no relief.
[2025-03-05 21:26] VITALS: BP 120/72; PULSE 85; RESP 17; TEMP 36.7; O2SAT 99
--- OUTSIDE RECORDS SUMMARY | 2025-03-05 21:26 | XMS_ITS | Clinical Summary ---
Author Organization [facility] [address] [facility] Address [address] [place] [address] Phone Care Team Providers Care Application Support Administrator Name Role Phone Naz Fofana NP Primary Care Provider [phone] Surgical History Surgery Date Site/Laterality Comments HERNIA [...] drink = 0.6 oz pur e alcohol) Comments Unknown Sex and Gender Information Value Date Recorded Sex Assigned at Not on file Legal Sex Female 1:18 PM EST Gender Identity Not on file Sexual Orientation Not on file Obstetrics History Plan of Treatment Health Maintenance Due Date Last Done Comments DTaP,Tdap,and Td Vaccines (1 - Tdap) 01/07/2012 Hepatitis B Vaccines (1 of 3 - 19+ 3-dose series) 01/07/2012 Cervical Cancer Screening: P ap Smear 2014 COVID-19 Vaccine ( - 2023-2 5 season) 2024 Depression Screening 08/05/2024 HIV Screening 08/05/2024 Hepatitis C Screening 08/05/2024 Social Influencers of Health Screening 08/05/2024 Influenza Vaccine (Season Ended) 2025 HIB Vaccines Aged Out No longer eligi [...] patient's age to complete this topic Meningococcal B Vaccine Aged Out No l onger eligible based on patient's age to complete [...] on patient's age to complete this topic Insurance * Guarantor: Brooklyn Naylor Account Type Relation to Patient Date of Phone Billing Address Personal/Family Self 1995 [address] [place] [address] MEDICAID - [place] Care Teams Application Support Administrator Relationship Specialty Start Date End Date Naz Fofana NP [address] [phone] PCP - General Internal Medicine 08/05/24
--- OUTSIDE RECORDS SUMMARY | 2025-03-05 21:26 | XMS_ITS | Encounter Summary ---
Author Organization [facility] Address [address] [place] [phone] Phone Care Team Providers Care [place] Artist Name Role Phone Unavailable Primary Care Provider Unavailabl e Encounter Details Date Type Department Care Team (Late st Contact Info) Description 04/18/2017 Conversion Encounter [facility] - [address] [address] Social History Tobacco Use Types Packs/Day Years [...]
== END 2025-03-05 21:32 | disposition home or self-care (01) ==
PROVIDERS: Emergency Provider Emergency Medicine
DX: L30.9 Dermatitis, unspecified (principal); L29.9 Pruritus, unspecified; Z87.891 Personal history of nicotine dependence
CPT/HCPCS: 99283; 99284

== ENCOUNTER 2025-04-07 12:45 | Emergency (ER) | payer MEDICAID, SELFPAY ==
[2025-04-07 12:47] VITALS: BP 114/70; PULSE 100; RESP 18; TEMP 36.6; O2SAT 99; BMI 33.3
--- NOTE | 2025-04-07 12:49 | ED_ITS ---
HPI - General Adult General Chief complaint: General Medical Stated complaint: Sore throat, body hurts, weak Time Seen by Provider: 04/07/25 12:54 Source: patient Mode of arrival: ambulatory Limitations: no limitations History of Present Illness ED Provider: EMETERIO LOBATO PA-C HPI narrative: 30 year old female presents to the ED today for evaluation of sore throat, headache, and body aches x2-3 days. Reports her sister recently tested positive for covid. Related Data Previous Rx's ?Medication ?Instructions ?Recorded desogestrel-e.estradiol 0.15 1 tab PO DAILY #84 tabs 1 09/19/23 mg-0.02 mg(21)/e.estrad 0.01 mg(5) tablet metronidazole 0.75 % (37.5 mg/5 1 appful vaginal BID 5 days #70 07/20/24 gram) vaginal gel grams metronidazole 500 mg tablet 500 mg PO Q12H #14 tabs cetirizine 10 mg tablet 10 mg PO DAILY PRN itchiness #10 03/05/25 tabs prednisone 5 mg tablet 5 mg PO DIRECTED #66 tabs 03/05/25 benzocaine 15 mg-menthol 2.6 mg 1 josue mucous membrane Q2-4H PRN 04/07/25 lozenges (Cepacol Sore Throat sore throat #16 ea (benzocaine-menthol)) Allergies Allergy/AdvReac Type Severity Reaction Status Date / Time No Known Drug Allergies (NO Allergy Unknown UNKNOWN Verified 04/07/25 12:48 KNOWN DRUG ALLERGIES) Review of Systems Review of Systems: Yes all other systems are reviewed and are negative PMFSH Past Medical History Attestation statement: The following information was validated with the patient. Source: old records reviewed and nursing notes reviewed Medical History Umbilical hernia Grand multipara Surgical History Hx of hand surgery H/O umbilical hernia repair (~2016) Family History Family History Mother No problems noted. Father Hx of diabetes mellitus Brother Hx of diabetes mellitus Maternal Grandfather No problems noted. Maternal Grandmother No problems noted. Paternal Grandfather No problems noted. Paternal Grandmother No problems noted. Other H/O heart bypass surgery Heart attack Social History Social History Household Members: Family and Children Alcohol intake: never Patient Tobacco Use Status: Former Tobacco user Advance Directives: No Advance Directives Information Provided: Yes Do you have a plan to hurt others: No Plan service: No Current occupational status: unemployed Physical Exam ED Vital Signs: Vital Signs - 24 hr 04/07/25 12:47 04/07/25 15:00 Temperature 98 F 98 F Pulse Rate 100 100 Respiratory Rate 18 18 Blood Pressure 114/70 114/70 Pulse Oximetry 99 99 Oxygen Delivery Method Room Air Room Air BMI result Body Mass Index 33.3 vital signs stable, afebrile, not hypoxic General: Well appearing, in no acute distress. Skin: Warm, dry, intact. No rashes or lesions. Head: Normocephalic, atraumatic. EENT: Hearing is intact b/l. Conjunctiva clear. Sclera is anicteric. PERRLA. EOM intact. Moist mucous membranes. Posterior oropharynx erythematous without edema, no tonsillar exudates, no peritonsillar masses, uvula midline, controlling secretions and speaking complete sentences, no muffled voice. Neck: Supple without LAD Cardiac: Chest wall symmetric. RRR Lungs: Normal respiratory effort without accessory muscle use Neuro: AOx3. Normal speech. Ambulating with steady gait. Course Course Course Narrative: Patient tested positive for COVID. Negative for flu, RSV, strep throat. Discussed supportive treatment. Cepacol throat lozenges sent to pharmacy for sore throat. Patient has remained stable throughout ED visit today. Discussed worrisome signs and symptoms and when to return to the ED. All questions answered at this time. Patient is agreeable with disposition and stable for discharge. Medical Decision Making Medical Decision Making MDM Narrative: 30 year old female presents to the ED today for evaluation of sore throat, headache, and body aches x2-3 days. Vital signs stable. Afebrile. She is well-appearing in no acute distress. Posterior oropharynx is erythematous without edema, no tonsillar exudates or peritonsillar masses, uvula midline, controlling secretions and speaking complete sentences. No muffled voice. Differential diagnosis includes viral syndrome, strep throat. 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 Plan for viral/strep swabs and re-evaluation. Differential Diagnosis Differential Diagnoses: The differential diagnosis associated with the presentation includes as above. Admission/Observation not indicated. Lab Data MDM Lab Attestation statement: I reviewed the patient's lab results. as above. Labs: Lab Results 04/07/25 Range/Units 12:56 Influenza Type A (PCR) NEGATIVE (Negative) Influenza Type B (PCR) NEGATIVE (Negative) RSV RNA Qual (PCR) NEGATIVE (Negative) SARS-CoV-2 RNA (RT-PCR) POSITIVE A (Negative) S. pyogenes GrpA MARY Negative (Negative) Prescription Management I considered prescription management with: Pain Medication Social Determinants Patient?s care significantly limited by Social Determinants of Health including: Other Social Determinant of Health Critical Care Time Critical Care Time Critical Care Time: No Discharge Plan Discharge Clinical Impression: COVID-19 Patient Disposition: Home, Self-Care Instructions: COVID-19 (Coronavirus Disease 2019) (ED) Additional Instructions: Today you tested positive for COVID-19.? Take Ibuprofen or Tylenol as needed for fevers or body aches.? Quarantine for 5 days and ensure you wear a mask. After 5 days you should wear a mask for 5 days after that.? Practice social distancing and good hand hygiene. Drink plenty of fluids. Follow-up with your primary care provider this week. Return to the emergency department with new or worsening symptoms. In case of emergency call 911 You can purchase a pulse oximeter from your local pharmacy or grocery store, and monitor your oxygen saturation if it goes below 94% you should return to the emergency department for further evaluation. Prescriptions: New Cepacol Sore Throat (yoan-men) 15-2.6 mg lozenge 1 josue mucous membrane Q2-4H PRN (Reason: sore throat) Qty: 16 0RF No Action prednisone 5 mg tablet 5 mg PO DIRECTED Qty: 66 0RF Rx Instructions: Take 11 tabs by mouth daily x1 day, then 10 tabs by mouth daily x1 day, then 9 tablets by mouth daily x1 day, continue 1 tablet less per day until done. cetirizine 10 mg tablet 10 mg PO DAILY PRN (Reason: itchiness) Qty: 10 0RF desog-e.estradiol/e.estradiol 0.15-0.02 mgx21 /0.01 mg x 5 tablet 1 tab PO DAILY Qty: 84 4RF metronidazole 0.75 % (37.5mg/5 gram) gel 1 appful vaginal BID 5 Days Qty: 70 0RF metronidazole 500 mg tablet 500 mg PO Q12H Qty: 14 0RF Referrals: [facility] [Physician, Primary Care] Stand Alone Forms: Work/School Release Interventions: ED Discharge Assessment Last Done: 04/07/25 15:00 Discharge Date/Time: 04/07/25 15:21 Print Language: Czech
[2025-04-07 13:13] LABS: IDNOW Serial# 55D5AD1C; Strep A Nucleic Acid Negative (Negative)
[2025-04-07 13:55] LABS: Resp Syncy Virus RNA Qual PCR NEGATIVE (Negative); SARS COV2 PCR INHOUSE POSITIVE (Negative)
[2025-04-07 15:00] VITALS: BP 114/70; PULSE 100; RESP 18; TEMP 36.6; O2SAT 99
--- OUTSIDE RECORDS SUMMARY | 2025-04-07 15:49 | XMS_ITS | Encounter Summary ---
Author Organization [facility] Address [address] [place] [phone] Phone Care Team Providers Care Printed Circuit Board Reworker Name Role Phone Unavailable Primary Care Provider Unavailabl e Encounter Details Date Type Department Care Team (Late st Contact Info) Description 04/18/2017 Conversion Encounter [facility] - [address] [address] Social History Tobacco Use Types Packs/Day Years [...]
--- OUTSIDE RECORDS SUMMARY | 2025-04-07 15:49 | XMS_ITS | Clinical Summary ---
Author Organization [employer] Address [address] [place] [address] Care Team Providers Care Hydraulic Jack Adjuster Name Role Phone Monse Ellington NP Primary Care Provider [phone] Allergies No known active allergies Medications diphenhydrAMINE (BENADryl) 50 MG tablet Take 1 tablet (50 mg) by mouth every 6 (six) hours if needed for itching. 30 tablet 4 Active fluticasone (Flonase) 50 MCG/ACT nasal spray ADMINISTER 1 SPRAY INTO EACH NOSTRIL 2 TIMES DAILY. SHAKE GENTLY. BEFORE FIRST USE, PRIME PUMP. AFTER USE, CLEAN TIP AND REPLACE CAP. 48 mL 4 Active Kariva 0.15-0.02/0.01 MG (20/01) tablet Take [...] Encounters Date Type Department Care Team Description 02/03/2025 Results Follow-Up [facility] [address] [place] [address] Reji Teixeira MD Influenza A (ID NOW Rapid Molecular), Influenza B (ID NOW Rapid Molecular), POCT Rapid COVID Ag, Additional followed-up results: 2 02/02/2025 Telephone [facility] [address] [place] [address] [phone] Monse Ellington NP Results 02/01/2025 1:40 PM EDT Office Visit [facility] [address] [place] [address] Reji Teixeira MD Sore throat 02/01/2025 Travel from Last 3 Months Immunizations Immunization Administration Dates Next Due DTP 02/02/1998, 5,1993,08/20,1993 Hep B, Adolescent or Pediatric 1993,1992,1993 Hib (HbOC) 03/27/1995, 4,1993,06/20 IPV 1993,1993,1993 Influenza injectable quadriv alent preservative free 09/11/2019,10/04/2017 MMR 02/02/1998,03/27/1995 Meningococcal MCV4P ACYW-135 02/14/2006 OPV, Trivalent 02/02/1998 Pfizer Covid-19 Vaccine 12+ 06/30/2024 TD [...] is your housing situation today? I have darwinmalena pradhan 08/20/[address] you [...] Pulse 80 02/01/2025 1:37 PM EDT Temperature 37 C (98.6 F) 10/09/2024 1:14 PM EST Respiratory Rate 18 02/01/2025 1:37 PM EDT Oxygen Saturation 99% 02/01/2025 1:37 PM EDT Inhaled Oxygen Concentration - - Weight 88 kg (194 lb) 02/01/2025 1:37 PM EDT Height 165.1 cm (5' 5 ) 10/09/2024 1:14 PM EST Body Mass Index 32.28 10/09/2024 1:14 PM EST Plan of Treatment Health Maintenance Due Date Last Done Comments Disability Screening 1993 Family Planning (PISQ) 01/07/2008 HPV Vaccines (1 - 3-dose series) 01/07/2008 Pap Smear 2014 Cervical Cancer Screening 2023 HPV/Cotest 2023 Influenza Vaccine (#1) 2025 09/11/2019, 2017 Alcohol/Substance Use Screening 08/20/2025 08/20/2024 Depression Screening 08/20/2025 08/20/2024, 08/20/20 24 SDOH Screening 09/03/2025 09/03/2024 Tobacco Screening 10/09/2025 10/09/2024 DTaP/Tdap/Td Vaccines (10 - Td or Tdap) [...] complete this topic COVID-19 Vaccine Completed 06/30/2024 HIV Screening Completed 10/09/2024 Hepatitis C Screening Completed 10/09/2024, 08/20/ 024 Hepatitis A Vaccines Aged Out No long er eligible based on patient's age to complete this topic Meningococcal B Vaccine Aged Out No l onger eligible based on patient's age to complete this topic Pneumococcal Vaccine: Pediatrics (0 to 5 Years) and At-Risk Patients (6 to 49) Years Aged Out No longer eligible based on patient's age to complete this topic RSV under 20 months Aged Out No longe r eligible based on patient's age to complete this topic Rotavirus Vaccines Aged Out No longer eligible based on patient's age to complete this topic Procedures Procedure Name Priority Date/Time Associated Diagnosis Comments CULTURE, THROAT Routine 02/01/2025 2:14 PM EDT Sore throat POCT RAPID COVID ANTIGEN Routine 02/01/2025 1:54 PM EDT Sore throat POCT INFLUENZA B (ID NOW RAPID MOLECULAR) Routine 02/01/2025 1:54 PM EDT Sore throat POCT RAPID STREP A Routine 02/01/2025 1: 53 PM EDT Sore throat POCT INFLUENZA A (ID NOW RAPID MOLECULAR) Routine 02/01/2025 1:53 PM EDT Sore throat HEPATITIS C ANTIBODY Routine 10/09/2024 1:47 PM EST HIV 1/2 ANTIGEN/ANTIBODY, FOURTH GENERATION W/RFL Routine 10/09/2024 1:47 PM EST from Last 3 Months or Most Recently Relevant to Health Maintenance Results * Culture, Throat (02/01/2025 2:14 PM EDT) Throat Structure of anterior portion of neck / Unknown 02/01/2025 2:14 PM EDT 02/01/2025 4:12 PM EDT Comment:Throat Narrative [facility] - 02/03/2025 7:40 AM EDT Throat Culture No Group A Beta-hemolytic Streptococci isolated. Specimen Source: Throat Reji Teixeira MD LAB MICROBIOLOGY - GENERAL ORDERABLES Final Result Performing Organization Address [facility] Co de Phone Number [facility] [address] [place] [phone] * Influenza B (ID NOW Rapid Molecular) (02/01/2025 1:54 PM EDT) [facility] Influenza B Negative Negative, Indeterminate [facility] Swab 02/01/2025 1:54 PM EDT us Reji Teixeira MD POINT OF CARE TEST ENTER/ED IT ORDERABLES Final Result Performing Organization Address [facility] de Phone Number [facility] [address] [place] [phone] * POCT Rapid COVID Ag (02/01/2025 1:54 PM EDT) [facility] Rapid COVID Ag Negative Swab 02/01/2025 1:54 PM EDT us Reji Teixeira MD POINT OF CARE TEST ENTER/ED IT ORDERABLES Final Result * Influenza A (ID NOW Rapid Molecular) (02/01/2025 1:53 PM EDT) [facility] Influenza A Negative Negative, Indeterminate [facility] Swab 02/01/2025 1:53 PM EDT us Reji Teixeira MD POINT OF CARE TEST ENTER/ED IT ORDERABLES Final Result Performing Organization Address [facility] Co de Phone Number [facility] [address] [place] [phone] * POCT rapid strep A manually resulted (02/01/2025 1:53 PM EDT) Rapid Strep A Screen Negative Negative, None Detected Swab 02/01/2025 1:53 PM EDT us Reji Teixeira MD POINT OF CARE TEST ENTER/ED IT ORDERABLES Final Result * Hepatitis C Ab (10/09/2024 1:47 PM EST) Pathologist [facility] Hepatitis C Antibody Nonreactive Nonreactive [facility] Comment:Antibodies to HCV no t detected; does not exclude early acuteHCV infection. 10/09/2024 1:47 PM EST 10/09/2024 4:09 PM EST us Generic External Data Provider LAB BLOOD ORDERAB LES Final Result Performing Organization Address [facility] Co de Phone Number [facility] [address] [place] [phone] * HIV-1/2 Antigen and Antibodies, Fourth Generation, with Reflexes (10/09/2024 1:47 PM EST) Pathologist [facility] HIV AB/AG Nonreactive Nonreactive [facility] Comment:HIV-1 p24 Ag and/or HIV-1/HIV-2 Ab not detected.A test result that is nonreactive does not exclude thepossibility of exposure to or infection with HIV-1 and/orHIV-2. Nonreactive results in this assay for individualswith prior exposure to HIV-1 and/or HIV-2 may be due toantigen and antibody levels that are below the limit ofdetection of this assay.[facility] HIV Ag/Ab Combo assay result andsupplemental assay results should be interpreted inconjunction with the patient's clinical presentation,history and other laboratory results. If the results areinconsistent with clinical evidence, additional testing issuggested to confirm the result. 10/09/2024 1:47 PM EST 10/09/2024 4:09 PM EST us Generic External Data Provider LAB BLOOD ORDERAB LES Final Result [facility] [address] [place] [phone] from Last 3 Months or Most Recently Relevant to Health Maintenance Insurance [facility] C3 Care Teams Hydraulic Jack Adjuster Relationship Specialty Start Date End Date Monse Ellington NP [address] [place] [phone] PCP - General Family Medicine 06/06/23
--- OUTSIDE RECORDS SUMMARY | 2025-04-07 15:49 | XMS_ITS | Clinical Summary ---
Author Organization [facility] [address] [facility] Address [address] [place] [address] Phone Care Team Providers Care Teacher Industrial Arts Name Role Phone Naz Fofana NP Primary Care Provider [phone] Surgical History Surgery Date Site/Laterality Comments HERNIA [...] Vaccine ( - 2023-2 5 season) 2024 HIV Screening 08/05/2024 Hepatitis C Screening 08/05/2024 Social Influencers of Health Screening 08/05/2024 Depression Screening 09/02/2024 Influenza Vaccine (#1) 2025 HIB Vaccines Aged Out No longer [...] 5 Years) and At-Risk Patients (6 to 49 Years) Aged Out No longer eligible b [...] Billing Address Personal/Family Self 1995 [address] [place] [address] MEDICAID - [place] Care Teams Teacher Industrial Arts Relationship Specialty Start Date End Date Naz Fofana NP [address] [phone] PCP - General Internal Medicine 08/05/24
== END 2025-04-07 15:21 | disposition home or self-care (01) ==
LOC: HO.ED 15:19
PROVIDERS: Physician Assistant Medical; Emergency Provider Emergency Medicine
DX: U07.1 COVID-19 (principal); R51.9 Headache, unspecified; J02.9 Acute pharyngitis, unspecified
CPT/HCPCS: 87637; 87651; 99282; 99283

== ENCOUNTER 2025-04-15 09:40 | Emergency (ER) | payer MEDICAID, SELFPAY ==
--- NOTE | ~2025-04-15 | XR_ITS ---
EXAMINATION: XR CHEST 2 VIEWS HISTORY: sob COMPARISON: Comparison is made with the prior examination dated 12/12/2021. FINDINGS: PA and lateral views of the chest are submitted. The lungs are expanded and clear. There is no pleural effusion, pneumothorax, or pulmonary vascular congestion. The heart is normal in size. The bones are intact. XR/XR chest 2V IMPRESSION: No acute cardiopulmonary abnormality. Electronically signed by: Tian Hazel MD 04/15/2025 11:34 AM EDT
--- NOTE | 2025-04-15 09:43 | ECG_ITS ---
Test Reason : cp/sob Blood Pressure : */* mmHG Vent. Rate : 91 BPM Atrial Rate : 91 BPM P-R Int : 140 ms QRS Dur : 78 ms QT Int : 368 ms P-R-T Axes : 51 20 23 degrees QTcB Int : 452 ms Normal sinus rhythm Normal ECG When compared with ECG of 12-Dec-2021 20:13, No significant change was found Referred By: Generic ED Physician Electronically Signed By: Darrick Cervantes
[2025-04-15 10:13] VITALS: BP 136/67; PULSE 87; RESP 20; TEMP 36.7; O2SAT 97; BMI 35.0
[2025-04-15 11:10] LABS: MANUAL DIFF FLAG NO
[2025-04-15 11:12] LABS: Hematocrit 37.5 % (37.0-47.0); Hemoglobin 13.1 g/dl (12.0-16.0); Imm Gran Abs Auto 0.06 X10*3/uL (0.00-0.03); Imm Gran Pct Auto 0.6 % (0.0-0.4); Lymphocytes Absolute Auto 1.8 X10*3/uL (1.2-4.9); Mean Corpuscular HGB Conc 34.9 g/dl (31.0-35.0); Mean Corpuscular Hemoglobin 29.1 pg (27.0-33.0); Mean Corpuscular Volume 83.3 fL (80.0-98.0); NRBC Abs Auto 0.000 X10*3/uL (0.0-0.012); NRBC Pct Auto 0.0 /100WBC (0.0-0.2); Platelet Count 295 X10*3/uL (160-400); Red Blood Count 4.50 X10*6/uL (4.20-5.50); White Blood Count 10.0 X10*3/uL (4.8-10.8)
[2025-04-15 11:16] LABS: UPreg QC Valid YES
[2025-04-15 11:26] LABS: Alanine Aminotransferase 20 U/L (0-31); Albumin Level 4.6 g/dL (3.5-5.0); Alkaline Phosphatase 80 U/L (39-117); Anion Gap 13 (12-20); Aspartate Amino Transferase 19 U/L (5-31); Blood Urea Nitrogen 8 mg/dL (9-16); Calcium 9.2 mg/dL (8.4-10.2); Carbon Dioxide 28 mmol/L (22-29); Chloride 104 mmol/L (96-108); Creatinine Clr Calc Pharmacy 153.9; Estimated Glomerular Filt Rate > 60; Potassium 4.3 mmol/L (3.3-5.1); Sodium 141 mmol/L (135-145); Total Protein 7.0 g/dL (6.5-8.0)
--- NOTE | 2025-04-15 12:01 | ED.GENADULT ---
HPI - General Adult General Chief complaint: Dyspnea Stated complaint: chest pain, SOB Time Seen by Provider: 04/15/25 12:01 Source: patient, RN notes reviewed and old records reviewed Mode of arrival: ambulatory Limitations: no limitations History of Present Illness ED Provider: Mckenna VILLASEÑOR narrative: Patient is a 30-year-old female presenting to the emergency department with complaint nonproductive cough, shortness of breath and chest pain for the past few days. Chest pain worst with coughing episodes. Child sick with similar symptoms at home. Denies any history of asthma. Denies fevers. Also complains of generalized fatigue and malaise. Denies any abdominal pain, nausea, vomiting, diarrhea or constipation. MD complaint: Cough, shortness of breath, chest pain Related Data Previous Rx's ?Medication ?Instructions ?Recorded desogestrel-e.estradiol 0.15 1 tab PO DAILY #84 tabs 07/20/24 mg-0.02 mg(21)/e.estrad 0.01 mg(5) tablet metronidazole 0.75 % (37.5 mg/5 1 appful vaginal BID 5 days #70 07/20/24 gram) vaginal gel grams metronidazole 500 mg tablet 500 mg PO Q12H #14 tabs 07/20/24 cetirizine 10 mg tablet 10 mg PO DAILY PRN itchiness #10 03/05/25 tabs prednisone 5 mg tablet 5 mg PO DIRECTED #66 tabs 03/05/25 benzocaine 15 mg-menthol 2.6 mg 1 josue mucous membrane Q2-4H PRN 04/07/25 lozenges (Cepacol Sore Throat sore throat #16 ea (benzocaine-menthol)) benzonatate 100 mg capsule 100 mg PO TID PRN cough #14 caps 04/15/25 Allergies Allergy/AdvReac Type Severity Reaction Status Date / Time No Known Drug Allergies (NO Allergy Unknown UNKNOWN Verified 04/15/25 10:14 KNOWN DRUG ALLERGIES) Review of Systems Review of Systems: As per HPI Yes all other systems are reviewed and are negative Constitutional: Constitutional: Reports as per HPI [facility] Past Medical History Medical History Umbilical hernia Grand multipara Surgical History Hx of hand surgery H/O umbilical hernia repair (~2017) Family History Family History Mother No problems noted. Father Hx of diabetes mellitus Brother Hx of diabetes mellitus Maternal Grandfather No problems noted. Maternal Grandmother No problems noted. Paternal Grandfather No problems noted. Paternal Grandmother No problems noted. Other H/O heart bypass surgery Heart attack Social History Social History Household Members: Family and Children Alcohol intake: never Patient Tobacco Use Status: Former Tobacco user Advance Directives: No Advance Directives Information Provided: Yes service: No Current occupational status: unemployed Physical Exam ED Vital Signs: Vital Signs - 24 hr 04/15/25 10:13 Temperature 98.1 F Pulse Rate 87 Respiratory Rate 20 Blood Pressure 136/67 Pulse Oximetry 97 Oxygen Delivery Method Room Air BMI result Body Mass Index 35.0 Vital signs have been reviewed and appear to be correct. Blood pressure normal. Heart rate normal. Respiratory rate normal. Temperature normal. Oxygen saturation normal. Const General: cooperative, healthy appearing and no acute distress Orientation/consciousness: oriented to person, oriented to place, oriented to time and patient oriented x3 Limitations: no limitations HENMT Head: Yes normocephalic and Yes atraumatic Ears: external ears normal General nose exam: Normal external nose present Face and sinus: Yes face symmetric Mouth: oropharynx normal and moist mucous membranes Throat: Yes uvula midline Eyes Pupils: Equal, round and reactive pupils present Neck Neck: Yes normal visual inspection and Yes supple Resp Effort & Inspection: normal respiratory effort and able to speak in complete sentences Auscultation: clear to auscultation bilaterally Cardio Rate: regular rate Rhythm: regular rhythm Heart sounds: S1 normal heart sound present and S2 normal heart sound present GI Palpation (GI): Soft to palpation and nontender Auscultation: normoactive bowel sounds General: Yes no CVA tenderness Back/Spine/Pelvis Back: no CVA tenderness Skin General skin exam: elasticity normal and turgor normal Neuro General: oriented to person, oriented to place, oriented to time, patient oriented x3, moves all extremities, no focal motor deficits and CN's II-XI intact bilaterally Cranial nerves: Yes Equal, round and reactive pupils present Cognition (Neuro): normal cognition Extrem General: Yes full ROM, Yes no pedal edema and Yes no calf tenderness Psych Mental Status: mental status grossly normal Affect: normal affect Thought process: Normal thought process present Medical Decision Making Medical Decision Making [facility] Narrative: Patient is a 30-year-old female presenting to the emergency department with complaint nonproductive cough, shortness of breath and chest pain for the past few days. On exam patient is awake, A+Ox3, VS WNL, afebrile, normal neurological exam without focal deficits, physical exam findings as above. Given reported symptoms and physical exam findings, initial differential includes but is not limited to viral illness, COVID, flu, RSV, bronchitis, pneumonia. Labs notable for no leukocytosis, negative troponin. X-ray chest notable for no evidence of pneumonia. My interpretation is in agreement with the radiologist's interpretation. Viral serology negative. Results discussed with patient and all questions answered. Advised patient that symptoms likely due to other viral illness, advised Tylenol, ibuprofen, rest, adequate fluid intake. Will send prescription for benzonatate but discussed with patient that she must keep this medication out of the reach of her children. Follow up with PCP as needed. Return precautions discussed. Patient verbalized understanding of and agreement with plan. Differential Diagnosis Differential Diagnoses: The differential diagnosis associated with the presentation includes as per [facility] Admission/Observation Consideration of admission/observation: Escalation of care including admission/observation considered Patient would have been admitted to the hospital had their clinical presentation warranted hospital admission. Lab Data [facility] Lab Attestation statement: I reviewed the patient's lab results. as per [facility] 04/15/25 11:04 04/15/25 11:04 Labs: Lab Results 04/15/25 Range/Units 11:04 WBC 10.0 (4.8-10.8) X10*3/uL RBC 4.50 (4.20-5.50) X10*6/uL Hgb 13.1 (12.0-16.0) g/dl Hct 37.5 (37.0-47.0) % MCV 83.3 (80.0-98.0) fL MCH 29.1 (27.0-33.0) pg MCHC 34.9 (31.0-35.0) g/dl RDW 12.0 (11.0-16.0) % Plt Count 295 D (160-400) X10*3/uL MPV 9.6 (9.4-12.3) fL Immature Gran % (Auto) 0.6 H (0.0-0.4) % Neut % (Auto) 71.6 (45-73) % Lymph % (Auto) 17.7 L (20-40) % [place] % (Auto) 6.4 (2-11) % Eos % (Auto) 3.2 (0-4) % Baso % (Auto) 0.5 (0-2) % Lymph # (Auto) 1.8 (1.2-4.9) X10*3/uL [place] # (Auto) 0.6 (0.1-1.2) X10*3/uL Eos # (Auto) 0.3 (0.0-0.4) X10*3/uL Baso # (Auto) 0.1 (0.0-0.2) X10*3/uL Abs Immat Gran (auto) 0.06 H (0.00-0.03) X10*3/uL Absolute Neuts (auto) 7.2 (2.0-8.3) x10*3/uL Absolute Nucleated RBC 0.000 (0.0-0.012) X10*3/uL Nucleated RBC % (auto) 0.0 (0.0-0.2) /100WBC Sodium 141 (135-145) mmol/L Potassium 4.3 (3.3-5.1) mmol/L Chloride 104 (96-108) mmol/L Carbon Dioxide 28 (22-29) mmol/L Anion Gap 13 (12-20) BUN 8 L (9-16) mg/dL Creatinine 0.60 (0.5-1.4) mg/dL Estim Creat Clear Calc 153.9 Estimated GFR > 60 Random Glucose 102 (60-115) mg/dL Calcium 9.2 (8.4-10.2) mg/dL Total Bilirubin 0.4 (0.0-1.0) mg/dL AST 19 (5-31) U/L ALT 20 (0-31) U/L Alkaline Phosphatase 80 (39-117) U/L Total Protein 7.0 (6.5-8.0) g/dL Albumin 4.6 (3.5-5.0) g/dL Urine Test NEGATIVE (NEGATIVE) Influenza Type A (PCR) NEGATIVE (Negative) Influenza Type B (PCR) NEGATIVE (Negative) RSV RNA Qual (PCR) NEGATIVE (Negative) SARS-CoV-2 RNA (RT-PCR) NEGATIVE (Negative) Independent Interpretation I performed an independent interpretation of an: EKG (normal sinus rhythm, rate 91bpm, normal RI interval, slightly prolonged QTc) and Plain X-Ray Interpretation: No evidence of pneumonia on chest xray. Radiology Impression Discussion of test interpretation with radiology: I have reviewed the radiologist's reading. Radiologist Impression: XR/XR chest 2V IMPRESSION: No acute cardiopulmonary abnormality. External Record Review External record reviewed: Inpatient record, Office record and Outpatient record Prescription Management I considered prescription management with: Other Discharge Plan Discharge Clinical Impression: Viral respiratory illness Patient Disposition: Home, Self-Care Instructions: Upper Respiratory Infection (DC), Viral Syndrome (ED) Additional Instructions: You were evaluated in the emergency department today for sore throat and cough. Your Covid, flu, RSV, and strep tests were all negative. Your chest xray did not show evidence of pneumonia. Your labs were reassuring. Your symptoms are likely related to a viral illness which will resolve on its own with time and rest. You should ensure adequate fluid intake, and can use Tylenol 650 mg or ibuprofen 600 mg every 6 hours as needed for fever or discomfort. You have been prescribed benzonatate for cough, use this medication as prescribed. KEEP THIS MEDICATION OUT OF THE REACH OF CHILDREN. We also recommend using over the counter nasal saline spray to thin your mucous. Please follow-up with your primary care provider this week. Return to the emergency department if you develop chest pain, worsening shortness of breath, difficulty swallowing, fever 100.4? F or greater or any other concerning symptoms. Prescriptions: New benzonatate 100 mg capsule 100 mg PO TID PRN (Reason: cough) Qty: 14 0RF No Action prednisone 5 mg tablet 5 mg PO DIRECTED Qty: 66 0RF Rx Instructions: Take 11 tabs by mouth daily x1 day, then 10 tabs by mouth daily x1 day, then 9 tablets by mouth daily x1 day, continue 1 tablet less per day until done. cetirizine 10 mg tablet 10 mg PO DAILY PRN (Reason: itchiness) Qty: 10 0RF Cepacol Sore Throat (yoan-men) 15-2.6 mg lozenge 1 josue mucous membrane Q2-4H PRN (Reason: sore throat) Qty: 16 0RF desog-e.estradiol/e.estradiol 0.15-0.02 mgx21 /0.01 mg x 5 tablet 1 tab PO DAILY Qty: 84 4RF metronidazole 0.75 % (37.5mg/5 gram) gel 1 appful vaginal BID 5 Days Qty: 70 0RF metronidazole 500 mg tablet 500 mg PO Q12H Qty: 14 0RF Stand Alone Forms: Work/School Release Print Language: Scottish
[2025-04-15 12:12] LABS: Resp Syncy Virus RNA Qual PCR NEGATIVE (Negative); SARS COV2 PCR INHOUSE NEGATIVE (Negative)
--- OUTSIDE RECORDS SUMMARY | 2025-04-15 13:01 | XMS_ITS | Clinical Summary ---
Author Organization [facility] [address] Address [address] [place] [address] Phone Care Team Providers Care Trial Attorney Name Role Phone Naz Fofana NP Primary Care Provider [phone] Surgical History Surgery Date Site/Laterality Comments HERNIA [...] Billing Address Personal/Family Self 1995 [address] [facility] [address] [place] [address] MEDICAID - [place] Care Teams Trial Attorney Relationship Specialty Start Date End Date Naz Fofana NP [address] [phone] PCP - General Internal Medicine 08/05/24
--- OUTSIDE RECORDS SUMMARY | 2025-04-15 13:01 | XMS_ITS | Clinical Summary ---
Author Organization [employer] Address [address] [place] [address] Care Team Providers Care Diesel Engine Mechanic Name Role Phone Monse Ellington NP Primary Care Provider [phone] Allergies No known active allergies Medications diphenhydrAMINE [...] Encounters Date Type Department Care Team Description 04/15/2025 Orders Only GENERIC EXTERNAL DATA DEPARTMENT Provider, Generic External Data 02/03/2025 Results Follow-Up [facility] [address] [place] [address] Reji Teixeira MD Influenza A (ID NOW Rapid Molecular), Influenza B (ID NOW Rapid Molecular), POCT Rapid COVID Ag, Additional followed-up results: 2 02/02/2025 Telephone [facility] MEDICINE [address] [place] [phone] Monse Ellington NP Results 02/01/2025 1:40 PM EDT Office Visit [facility] [address] [place] [address] Reji Teixeira MD Sore throat 02/01/2025 Travel [...] Completed 10/09/2024 Hepatitis C Screening Completed 10/09/2024, 024 Hepatitis A Vaccines Aged Out No [...] Procedure Name Priority Date/Time Associated Diagnosis Comments COMPREHENSIVE METABOLIC PANEL Routine 04/15/2025 11:04 AM EDT HCG, QL, URINE Routine 04/15/2025 11:04 AM EDT CBC WITH AUTO DIFFERENTIAL Routine 04/15/2025 11:04 AM EDT SARS COV2/INFLUENZA A/B AND RSV RNA QL NAAT Routine 04/15/2025 11:04 AM EDT XR CHEST 2 VIEWS Routine 04/15/2025 10:3 3 AM EDT CULTURE, THROAT Routine 02/01/2025 2:14 PM EDT [...] Recently Relevant to Health Maintenance Results * SARS-CoV-2 RNA, Influenza A/B, and RSV RNA, Ql NAAT (04/15/2025 11:04 AM EDT) Influenza A PCR NEGATIVE Negative [facility] Influenza B PCR NEGATIVE Negative [facility] Resp Syncy Virus RNA Qual PCR NEGATIVE Negative [facility] SARS COV2 PCR NEGATIVE Negative [facility] Comment:All test results mus t be correlated with clinical findings.Negative results do not preclude SARS-CoV2, influenza Avirus, influenza B virus and/or RSV infectionand should not be used as the sole basis for treatment orother patient management decisions. Negative results must becombined with clinical observations, patient history, andepidemiological information.This test has not been evaluated for monitoring treatment ofinfection.This test has been authorized by the FDA under an EmergencyUse Authorization (EUA) for use by authorized laboratories.Testing performed on the [employer] GeneXpert utilizingreal-time RT-PCR.All SARS CoV2 and positive influenza A/B results arereported to [facility]. 04/15/2025 11:0 4 AM EDT 04/15/2025 11:08 AM EDT us Generic External Data Provider LAB MICROBIOLOGY - GENERAL ORDERABLES Final Result [facility] [address], [place] [phone] * (ABNORMAL) CBC auto differential (04/15/2025 11:04 AM EDT) White Blood Count 10.0 4.8 - 10.8 X10*3/uL [facility] Red Blood Count 4.50 4.20 - 5.50 X10*6/uL [facility] Hemoglobin 13.1 12.0 - 16.0 g/dl [facility] Hematocrit 37.5 37.0 - 47.0 % [facility] Mean Corpuscular Volume 83.3 80.0 - 98.0 fL [facility] Mean Corpuscular Hemoglobin 29.1 27.0 - 33.0 pg [facility] Mean Corpuscular HGB Conc 34.9 31.0 - 35.0 g/dl [facility] Red Cell Distribution Width 12.0 11.0 - 16.0 % [facility] Platelet Count 295 160 - 400 X10*3/uL [facility] Mean Platelet Volume 9.6 9.4 - 12.3 fL [facility] Neutrophils Percent Auto 71.6 45 - 73 % [facility] Imm Gran Pct Auto 0.6(H) 0.0 - 0.4 % [facility] Lymphocytes Percent Auto 17.7(L) 20 - 40 % [facility] Monocytes Percent Auto 6.4 2 - 11 % [facility] Eosinophils Percent Auto 3.2 0 - 4 % [facility] Basophils Percent Auto 0.5 0 - 2 % [facility] NRBC Pct Auto 0.0 0.0 - 0.2 /100WBC [facility] Neutrophils Absolute Auto 7.2 2.0 - 8.3 x10*3/uL [facility] Imm Gran Abs Auto 0.06(H) 0.00 - 0.03 X10*3/uL [facility] Lymphocytes Absolute Auto 1.8 1.2 - 4.9 X10*3/uL [facility] Monocytes Absolute Auto 0.6 0.1 - 1.2 X10*3/uL [facility] Eosinophils Absolute Auto 0.3 0.0 - 0.4 X10*3/uL [facility] Basophils Absolute Auto 0.1 0.0 - 0.2 X10*3/uL [facility] NRBC Abs Auto 0.000 0.0 - 0.012 X10*3/uL [facility] 04/15/2025 11:0 4 AM EDT 04/15/2025 11:08 AM EDT Generic External Data Provider LAB BLOOD ORDERAB LES Final Result Performing Organization Address [facility] Co de Phone Number [facility] [address] [place] [phone] * HCG, Qualitative, Urine (04/15/2025 11:04 AM EDT) Pathologist [facility] Urine NEGATIVE NEGATIVE [facility] Comment:This test was develo ped to detect early . Falsenegative results may occur after the 5th - 7th week ofpregnancy when using this test method. If clinicallyindicated, consider a serum hCG. 04/15/2025 11:0 4 AM EDT 04/15/2025 11:08 AM EDT Generic External Data Provider LAB URINE ORDERAB LES Final Result Performing Organization Address [facility] Co de Phone Number [facility] [address] [place] [address] [phone] * (ABNORMAL) Comprehensive Metabolic Panel (04/15/2025 11:04 AM EDT) Pathologist [facility] Sodium 141 135 - 145 mmol/L [facility] Potassium 4.3 3.3 - 5.1 mmol/L [facility] Chloride 104 96 - 108 mmol/L [facility] Carbon Dioxide 28 22 - 29 mmol/L [facility] Anion Gap 13 12 - 20 [facility] Urea Nitrogen (BUN) 8(L) 9 - 16 mg/dL [facility] Creatinine, Serum 0.60 0.5 - 1.4 mg/dL [facility] Creatinine Clr Calc Pharmacy 153.9 [facility] Comment:Provided height and weight: 165.1 cm,95.5 kg.eGFR (calculated from the MDRD study equation) and eCrCl(calculated from the Cockcroft-Gault equation) are based ondifferent parameters and may not yield comparable results.If eCrCl result is absurd, please check patient'sheight/weight. Estimated Glomerular Filt Rate >60 [facility] Comment:Chronic Kidney Disea se: Estimated GFR < 60 mL/min/1.32y5Sfekoo Kidney Disease: Estimated GFR < 15 mL/min/1.73m2 Glucose 102 60 - 115 mg/dL [facility] Calcium 9.2 8.4 - 10.2 mg/dL [facility] Bilirubin, Total 0.4 0.0 - 1.0 mg/dL [facility] Aspartate Amino Transferase 19 5 - 31 U/L [facility] Alanine Aminotransferase 20 0 - 31 U/L [facility] Total Protein 7.0 6.5 - 8.0 g/dL [facility] Albumin Level 4.6 3.5 - 5.0 g/dL [facility] Alkaline Phosphatase 80 39 - 117 U/L [facility] 04/15/2025 11:0 4 AM EDT 04/15/2025 11:08 AM EDT us Generic External Data Provider LAB BLOOD ORDERAB LES Final Result Performing Organization Address City/State/[facility] Co de Phone Number [facility] [address] [place] [phone] * XR Chest 2 Views (04/15/2025 10:33 AM EDT) Anatomical Region Laterality Modality Chest Radiographic Alyse ging 04/15/2025 10:3 3 AM EDT Narrative 04/15/2025 11:38 AM EDT [address] [address] XRay Report Signed Patient: Brooklyn Naylor MR#: [id number] : 1995 Acct:[id number] Age/Sex: 30 / F ADM Date: 04/15/25 Loc: .ED Attending Dr: Ordering Physician: Generic ED Physician Date of Service: 04/15/25 Procedure(s): XR chest 2V Accession Number(s): [id number] cc: [facility] ED Physician; [facility] EXAMINATION: XR CHEST 2 VIEWS HISTORY: sob COMPARISON: Comparison is made with the prior examination dated 12/12/2021. FINDINGS: PA and lateral views of the chest are submitted. The lungs are expanded and clear. There is no pleural effusion, pneumothorax, or pulmonary vascular congestion. The heart is normal in size. The bones are intact. XR/XR chest 2V IMPRESSION: No acute cardiopulmonary abnormality. Electronically signed by: Tian Hazel MD 04/15/2025 11:34 AM EDT RP Dictated By: Tian Hazel MD Signed By: <Electronically signed by Tian Hazel MD in OV> 04/15/25 1134 DD/ 1033 TD/TT: 04/15/25 1131 Director Compliance: Procedure Note Donotuseinterpreter, Image - 04/15/2025 [place] [id number] XRay Report Signed Patient: Brooklyn NaylorMR#: [id number] : 1995Acct:[id number] Age/Sex: 30 / FADM Date: 04/15/25 Loc: .ED Attending Dr: Ordering Physician: Generic ED Physician Date of Service: 04/15/25 Procedure(s): XR chest 2V Accession Number(s): [id number] cc: [facility] ED Physician; [facility] EXAMINATION: XR CHEST 2 VIEWS HISTORY: sob COMPARISON: Comparison is made with the prior examination dated 12/12/2021. FINDINGS: PA and lateral views of the chest are submitted. The lungs are expanded and clear. There is no pleural effusion, pneumothorax, or pulmonary vascular congestion. The heart is normal in size. The bones are intact. XR/XR chest 2V IMPRESSION: No acute cardiopulmonary abnormality. Electronically signed by: Tian Hazel MD 04/15/2025 11:34 AM EDT RP Dictated By: Tian Hazel MD Signed By: <Electronically signed by Tian Hazel MD in OV> 04/15/25 1134 DD/ 1033 TD/TT: 04/15/25 1131 Director Compliance: [facility] External Provider IMG XR PROCEDURES Final Result * Culture, Throat (02/01/2025 2:14 PM EDT) Throat Structure of anterior portion of neck / Unknown 02/01/2025 2:14 PM EDT 02/01/2025 4:12 PM EDT Comment:Throat Narrative [facility] - 02/03/2025 7:40 AM EDT Throat Culture No Group A Beta-hemolytic Streptococci isolated. Specimen Source: Throat Reji Teixeira MD LAB MICROBIOLOGY - GENERAL ORDERABLES Final Result Performing Organization Address City/[facility]/ZIP Co de Phone Number [facility] [address] [place] [phone] * Influenza B (ID NOW Rapid Molecular) (02/01/2025 1:54 PM EDT) [facility] Influenza B Negative Negative, Indeterminate [facility] Swab 02/01/2025 1:54 PM EDT Reji Teixeira MD POINT OF CARE TEST ENTER/ED IT ORDERABLES Final Result Performing Organization Address City/[facility]/ZIP Co de Phone Number [facility] [address] [place] [phone] * POCT Rapid COVID Ag (02/01/2025 1:54 PM EDT) Pathologist [facility] Rapid COVID Ag Negative Swab 02/01/2025 1:54 PM EDT Reji Teixeira MD POINT OF CARE TEST ENTER/ED IT ORDERABLES Final Result * Influenza A (ID NOW Rapid Molecular) (02/01/2025 1:53 PM EDT) [facility] Influenza A Negative Negative, Indeterminate [facility] Swab 02/01/2025 1:53 PM EDT Reji Teixeira MD POINT OF CARE TEST ENTER/ED IT ORDERABLES Final Result Performing Organization Address [facility] Co de Phone Number [facility] [address] [place] [phone] * POCT rapid strep A manually resulted (02/01/2025 1:53 PM EDT) [facility] Rapid Strep A Screen Negative Negative, None Detected Swab 02/01/2025 1:53 PM EDT Reji Teixeira MD POINT OF CARE TEST ENTER/ED IT ORDERABLES Final Result * Hepatitis C Ab (10/09/2024 1:47 PM EST) [facility] Hepatitis C Antibody Nonreactive Nonreactive [facility] Comment:Antibodies to HCV no t detected; does not exclude early acuteHCV infection. 10/09/2024 1:47 PM EST 10/09/2024 4:09 PM EST Generic External Data Provider LAB BLOOD ORDERAB LES Final Result Performing Organization Address [facility] Co de Phone Number [facility] [address] [place] [phone] * HIV-1/2 Antigen and Antibodies, Fourth Generation, with Reflexes (10/09/2024 1:47 PM EST) [facility] HIV AB/AG Nonreactive Nonreactive [facility] Comment:HIV-1 p24 Ag and/or HIV-1/HIV-2 Ab not detected.A test result that is nonreactive does not exclude thepossibility of exposure to or infection with HIV-1 and/orHIV-2. Nonreactive results in this assay for individualswith prior exposure to HIV-1 and/or HIV-2 may be due toantigen and antibody levels that are below the limit ofdetection of this assay.The [employer] Alinity HIV Ag/Ab Combo assay result andsupplemental assay results should be interpreted inconjunction with the patient's clinical presentation,history and other laboratory results. If the results areinconsistent with clinical evidence, additional testing issuggested to confirm the result. 10/09/2024 1:47 PM EST 10/09/2024 4:09 PM EST us Generic External Data Provider LAB BLOOD ORDERAB LES Final Result [facility] [address] [place] [phone] [phone] from Last 3 Months or Most Recently Relevant to Health Maintenance Insurance [facility] C3 Care Teams Diesel Engine Mechanic Relationship Specialty Start Date End Date Monse Ellington NP [address] [place] [address] PCP - General Family Medicine 06/06/23
--- OUTSIDE RECORDS SUMMARY | 2025-04-15 13:01 | XMS_ITS | Encounter Summary ---
Author Organization [facility] Address [address] [place] [address] Phone Care Team Providers Care Communication Specialist Name Role Phone Unavailable Primary Care Provider Unavailabl e Encounter Details Date Type Department Care Team (Late st Contact Info) Description 04/18/2017 Conversion Encounter [facility] - [address] [address] Social History Tobacco Use Types Packs/Day Years [...]
[2025-04-15 13:11] VITALS: BP 124/77; PULSE 96; RESP 14; TEMP 36.6; O2SAT 94
[2025-04-15 14:46] VITALS: BP 124/77; PULSE 96; RESP 14; TEMP 36.6; O2SAT 94
== END 2025-04-15 14:46 | disposition home or self-care (01) ==
PROVIDERS: Emergency Provider Emergency Medicine
DX: J98.9 Respiratory disorder, unspecified (principal); R07.9 Chest pain, unspecified; R06.02 Shortness of breath
CPT/HCPCS: 71046; 80053; 81025; 85025; 87637; 93005; 99283; 99284

== ENCOUNTER → 2025-04-15 09:43 | Outpatient (BNV) | payer MEDICAID, SELFPAY | PROVIDERS: Emergency Provider Emergency Medicine; Visit Provider Internal Medicine Cardiovascular Disease | DX: R06.02 Shortness of breath (principal); R07.9 Chest pain, unspecified | CPT/HCPCS: 93010 ==

== ENCOUNTER → 2025-04-15 10:15 | Outpatient (BNV) | payer MEDICAID, SELFPAY | PROVIDERS: Emergency Provider Emergency Medicine; Visit Provider Radiology Diagnostic Radiology | DX: R06.02 Shortness of breath (principal) | CPT/HCPCS: 71046 ==

== ENCOUNTER 2025-07-02 15:18 | Outpatient (REF) | payer MEDICAID, SELFPAY ==
--- NOTE | ~2025-07-02 | US_ITS ---
EXAMINATION: US TRIPLEX LOWER EXTREMITY, RIGHT CLINICAL INFORMATION: Swelling COMPARISON: None available. TECHNIQUE: Color-flow triplex imaging with spectral analysis and compression Doppler were performed on the right lower extremity. FINDINGS: Respiratory variation, normal compression and augmented flow are noted throughout the right lower extremity. The visualized common femoral vein, superficial femoral vein, profunda femoral vein, popliteal vein and midcalf peroneal and posterior tibial venous segments show no evidence of deep venous thrombosis. There is no Reyes's cyst. US/US venous duplex LE RT IMPRESSION: No evidence of deep venous thrombosis involving the right lower extremity. Electronically signed by: Jamilah Delvalle MD 07/02/2025 04:23 PM EDT
--- OUTSIDE RECORDS SUMMARY | 2025-07-02 09:00 | XMS_ITS | Encounter Summary ---
Author Organization [employer] Address [address] [facility] 7t [place] [address] Care Team Providers Care Donor Recruiter Name Role Phone Monse Ellington NP Primary Care Provider [phone] Reason for Referral * Imaging (STAT) - Authorized Specialty Diagnoses / Procedures Referred By Pari bautista Referred To Contact Cardiology Diagnoses Unilateral edema of lower extremity Procedures VASC Lower Extremity Venous Duplex Right Jenna Mallory FNP [address] [place] [address] Phone: tel: fax: [address] Phone: tel: fax: Referral ID Status Reason Start Date Expiration Date Visits Requested Visits Authorized [id number] Authorized Perform Procedure 07/02/2026 1 1 Reason for Visit * Reason Comments sick visit Encounter Details Date Type Department Care Team (Late st Contact Info) Description 07/02/2025 9:00 AM EDT Office Visit [facility] MEDICINE [address] [place] [address] Jenna Mallory FNP [address] [place], [place] [phone] Unilateral edema of lower extremity (Primary Dx) Social History Tobacco Use Types [...] Sign Reading Time Taken Comments Blood Pressure 118/84 07/02/2025 9:00 AM EDT Pulse 86 07/02/2025 9:00 AM EDT Temperature 36.5 C (97.7 F) 07/02/2025 9:00 AM EDT Respiratory Rate 20 07/02/2025 9:00 AM EDT Oxygen Saturation - - Inhaled Oxygen Concentration - - Weight 101 kg (222 lb 12.8 oz) 07/02/2025 9:00 A M EDT Height 165.1 cm (5' 5 ) 07/02/2025 9:00 AM EDT Body Mass Index 37.08 07/02/2025 9:00 AM EDT documented in this encounter Plan of Treatment Not on file documented as of this encounter Visit Diagnoses Diagnosis Unilateral edema of lower extremity- Primary documented in this encounter Additional Health Concerns Assessment Noted Time PHQ-9 Depression Total Score: 0 08/20/20 24 2:29 PM EST documented as of this encounter Care Teams Donor Recruiter Relationship Specialty Start Date End Date Monse Ellington NP [address] [place] [phone] PCP - General Family Medicine 06/06/23 documented as of this encounter
--- OUTSIDE RECORDS SUMMARY | 2025-07-02 15:28 | XMS_ITS | Encounter Summary ---
Author Organization [employer] Address [address] [facility] 7t [place] [address] Care Team Providers Care Orthopedic Shoe Fitter Name Role Phone Monse Ellington NP Primary Care Provider [phone] Reason for Visit * Reason Onset Date Comments Nurse Triage 06/28/2025 Encounter Details Date Type Department Care Team ([facility] st Contact Info) Description 06/28/[address] [facility] MEDICINE [address] [place] [address] Monse Ellington NP [address] [place] [address] Nurse Triage Social History Tobacco Use Types Packs/Day Years [...] encounter Miscellaneous Notes * Telephone Encounter - Rain Trent RN - 06/28/2025 4:23 PM EDT TC x2 placed to patient. Patient c/o RLE nerve pain, burning sensation, numbness x 1 month. Patientalso reported right knee swelling and difficulty ambulation. Denies any recent injury to the sites.Patient informed this RN she has been seen at [facility] for similar symptoms and was unable to have the surgery because she has small children. RN advised patient if her symptoms worsen to seen emergency care for further evaluation. RN scheduled an appt with patient PCP. Patient agreed to the appt. Patient verbalized understanding. Protocol Used: Leg Swelling and Edema (Adult) Protocol-Based Disposition: See in Office or Video Visit Today Video visit not offered Positive Triage Questions: * Moderate swelling of both ankles (e.g., swelling extends up to the knees) AND new-onset or getting worse * Patient wants to be seen * Mild swelling of both ankles and varicose veins * All higher-acuity triage questions were negative Care Advice Discussed: * Reassurance and Education - Varicose Veins * Varicose Veins - Treatment * Reasons To Call Back - Swelling becomes worse - Swelling becomes red or painful to the touch - Calf pain occurs and becomes constant - You become worse * Telephone Encounter - Rain Trent RN - 06/28/2025 1:17 PM EDT TC placed to patient [phone] regarding below message. RN left an VM for the patient to Nurse triage line. RN will re-attempt. * Telephone Encounter - Tapan Osborne - 06/28/2025 10:46 AM EDT Symptoms: Leg Swelling - Not From Injury, Leg Pain - Not From Injury Outcome: Schedule an urgent appointment (within 1 hour) or talk to a nurse or provider soon Reason: Trouble walking The caller accepted this outcome. Contact pt at [phone] documented in this encounter Plan of Treatment Not on file documented as of this encounter Visit Diagnoses Not on filedocumented in this encounter Additional Health Concerns Assessment Noted Time PHQ-9 Depression Total Score: 0 08/20/20 24 2:29 PM EST documented as of this encounter Care Teams Orthopedic Shoe Fitter Relationship Specialty Start Date End Date Monse Ellington NP [address] [place] [address] PCP - General Family Medicine 06/06/23 documented as of this encounter
--- OUTSIDE RECORDS SUMMARY | 2025-07-02 15:28 | XMS_ITS | Encounter Summary ---
Author Organization [employer] Address [address] [facility] [address] 7t [place] [address] Care Team Providers Care Curator Zoological Museum Name Role Phone Monse Ellington NP Primary Care Provider [phone] Encounter Details Date Type Department Care Team ([facility] st Contact Info) Description 06/14/2025 Orders Only [facility] MEDICINE [address] [place] [address] Monse Ellington NP [address] [place] [address] Positive test (Primary Dx) Social History Tobacco Use Types [...] AM EST documented as of this encounter Plan of Treatment Not on file documented as of this encounter Visit Diagnoses Diagnosis Positive test- Primary examination or test, positive result documented in this encounter Additional Health Concerns Assessment Noted Time PHQ-9 Depression Total Score: 0 08/20/20 24 2:29 PM EST documented as of this encounter Care Teams Curator Zoological Museum Relationship Specialty Start Date End Date Monse Ellington NP [address] [place] [address] PCP - General Family Medicine 06/06/23 documented as of this encounter
--- OUTSIDE RECORDS SUMMARY | 2025-07-02 15:28 | XMS_ITS | Clinical Summary ---
Author Organization [facility] [address] [facility] Address [address] [place] [address] Phone Care Team Providers Care As400 Analyst Name Role Phone Naz Fofana NP Primary Care Provider [phone] Surgical History Surgery Date Site/Laterality Comments HERNIA [...] Cervical Cancer Screening: P ap Smear 2014 HPV Vaccines (1 - 3-dose SCD M series) 01/07/2020 HIV Screening 08/05/2024 Hepatitis C Screening 08/05/2024 Social Influencers of Health Screening 08/05/2024 Depression Screening 09/02/2024 COVID-19 Vaccine ( - 2023-2 5 season) 2025 Influenza Vaccine (#1) 2025 RSV Immunization Adult Patie nts (1 - 1-dose 75+ series) 01/07/2068 HIB Vaccines Aged Out No longer eligi [...] Billing Address Personal/Family Self 1995 [address] [facility] [address] [place] [address] MEDICAID - [place] Care Teams As400 Analyst Relationship Specialty Start Date End Date Naz Fofana NP [address] [facility] [address] [place] [address] PCP - General Internal Medicine 08/05/24
--- OUTSIDE RECORDS SUMMARY | 2025-07-02 15:28 | XMS_ITS | Encounter Summary ---
Author Organization [facility] Address [address] [facility] [address] 7t [place] [address] Care Team Providers Care Wood Fence Erector Name Role Phone Monse Ellington ИРИНА Primary Care Provider [phone] Encounter Details Date Type Department Care Team (Latest Contact Info) Description 07/02/2025 Travel Social History Tobacco Use Types Packs/Day Years [...] documented as of this encounter Care Teams Wood Fence Erector Relationship Specialty Start Date End Date Monse Ellington NP [address] [place] [address] PCP - General Family Medicine 06/06/23 documented as of this encounter
--- OUTSIDE RECORDS SUMMARY | 2025-07-02 15:28 | XMS_ITS | Encounter Summary ---
Author Organization [employer] Address [address] [facility] 7t [place] [address] Care Team Providers Care Holistic Specialist Name Role Phone Monse Ellington NP Primary Care Provider [phone] Reason for Visit * Reason Onset Date Comments Lab Orders 06/10/2025 Appointment Request 06/10/2025 Encounter Details Date Type Department Care Team ([facility] Contact Info) Description 06/10/2025 Telephone [facility] MEDICINE [address] [place] [address] Monse Ellington NP [address] [place] [address] Lab Orders; Appointment Request Social History Tobacco Use Types Packs/Day Years [...] encounter Miscellaneous Notes * Telephone Encounter - Armando Cruz - 06/10/2025 1:21 PM EDT Tc from pt stating she had a positive at home test and is requesting lab orders to further verify. Pt is also requesting an appointment to be referred to an OBGYB. Please contact pt at [phone], documented in this encounter Plan of Treatment Not on file documented as of this encounter Visit Diagnoses Not on filedocumented in this encounter Additional Health Concerns Assessment Noted Time PHQ-9 Depression Total Score: 0 08/20/20 24 2:29 PM EST documented as of this encounter Care Teams Holistic Specialist Relationship Specialty Start Date End Date Monse Ellington NP [address] [place] [address] PCP - General Family Medicine 06/06/23 documented as of this encounter
--- OUTSIDE RECORDS SUMMARY | 2025-07-02 15:28 | XMS_ITS | Encounter Summary ---
Author Organization [facility] Address [address] [place] [phone] Phone Care Team Providers Care Video Rental Clerk Name Role Phone Unavailable Primary Care Provider Unavailabl e Encounter Details Date Type Department Care Team (Late st Contact Info) Description 04/18/2017 Conversion Encounter [facility] - [address] [address] Social History Tobacco Use Types Packs/Day Years [...]
--- OUTSIDE RECORDS SUMMARY | 2025-07-02 15:28 | XMS_ITS | Clinical Summary ---
Author Organization [employer] Address [address] [facility] 7t [place] [address] Care Team Providers Care Train Driver Name Role Phone Monse Ellington ИРИНА Primary Care Provider [phone] Allergies No known active allergies Medications diphenhydrAMINE [...] Encounters Date Type Department Care Team Description 07/02/2025 9:00 AM EDT Office Visit [address] [address] Mohamud, Jenna, [facility] Unilateral edema of lower extremity (Primary Dx) 07/02/2025 Travel 07/01/[address] [address] Monse Ellington NP No Show (Pt no show for sick on site ) 06/28/[address] [address] Monse Ellington NP Nurse Triage 06/14/2025 Orders Only [address] [address] Monse Ellington NP Positive test (Primary Dx) 06/10/[address] [address] Monse Ellington NP Lab Orders; Appointment Request 04/15/2025 Orders Only GENERIC EXTERNAL DATA DEPARTMENT Provider, Generic External Data from Last 3 Months Immunizations Immunization Administration [...] 20 07/02/2025 9:00 AM EDT Oxygen Saturation 99% 02/01/2025 1:37 PM EDT Inhaled Oxygen Concentration - - Weight 101 kg (222 lb 12.8 oz) 07/02/2025 9:00 A M EDT Height 165.1 cm (5' 5 ) 07/02/2025 9:00 AM EDT Body Mass Index 37.08 07/02/2025 9:00 AM EDT Plan of Treatment Health Maintenance Due Date [...] VIEWS Routine 04/15/2025 10:3 3 AM EDT HEPATITIS C ANTIBODY Routine 10/09/2024 1:47 PM EST HIV 1/2 ANTIGEN/ANTIBODY, FOURTH GENERATION W/RFL Routine 10/09/2024 1:47 PM EST from Last 3 Months or Most Recently Relevant to Health Maintenance Results * SARS-CoV-2 RNA, Influenza A/B, and RSV RNA, Ql NAAT (04/15/2025 11:04 AM EDT) Pathologist [facility] Influenza A PCR NEGATIVE Negative [facility] Influenza B PCR NEGATIVE Negative [facility] Resp Syncy Virus RNA Qual PCR NEGATIVE Negative [facility] SARS COV2 PCR NEGATIVE Negative [facility] Comment:All test results mus t [...] use by authorized laboratories.Testing performed on the [employer] GeneXpert utilizingreal-time RT-PCR.All SARS CoV2 and positive influenza A/B results arereported to [facility]. 04/15/2025 11:0 4 AM EDT 04/15/2025 11:08 AM EDT us Generic External Data Provider LAB MICROBIOLOGY - GENERAL ORDERABLES Final Result [facility] [address] [place] [phone] * (ABNORMAL) CBC auto differential (04/15/2025 11:04 AM EDT) Pathologist [facility] White Blood Count 10.0 4.8 - 10.8 X10*3/uL [facility] Red Blood Count 4.50 4.20 - 5.50 X10*6/uL [facility] Hemoglobin 13.1 12.0 - 16.0 g/dl [facility] Hematocrit 37.5 37.0 - 47.0 % [facility] Mean Corpuscular Volume 83.3 80.0 - 98.0 fL [facility] Mean Corpuscular Hemoglobin 29.1 27.0 - 33.0 pg [facility] Mean Corpuscular HGB Conc 34.9 31.0 - 35.0 g/dl [facility] Red Cell Distribution Width 12.0 11.0 - 16.0 % [facility] Platelet Count 295 160 - 400 X10*3/uL [facility] Mean Platelet Volume 9.6 9.4 - 12.3 fL [facility] Neutrophils Percent Auto 71.6 45 - 73 % [facility] Imm Gran Pct Auto 0.6(H) 0.0 - 0.4 % [facility] Lymphocytes Percent Auto 17.7(L) 20 - 40 % [facility] Monocytes Percent Auto 6.4 2 - 11 % [facility] Eosinophils Percent Auto 3.2 0 - 4 % [facility] Basophils Percent Auto 0.5 0 - 2 % [facility] NRBC Pct Auto 0.0 0.0 - 0.2 /100WBC [facility] Neutrophils Absolute Auto 7.2 2.0 - 8.3 x10*3/uL [facility] Imm Gran Abs Auto 0.06(H) 0.00 - 0.03 X10*3/uL [facility] Lymphocytes Absolute Auto 1.8 1.2 - 4.9 X10*3/uL [facility] Monocytes Absolute Auto 0.6 0.1 - 1.2 X10*3/uL [facility] Eosinophils Absolute Auto 0.3 0.0 - 0.4 X10*3/uL [facility] Basophils Absolute Auto 0.1 0.0 - 0.2 X10*3/uL [facility] NRBC Abs Auto 0.000 0.0 - 0.012 X10*3/uL [facility] 04/15/2025 11:0 4 AM EDT 04/15/2025 11:08 AM EDT us Generic External Data Provider LAB BLOOD ORDERAB LES Final Result [facility] [address] [place] [address] [phone] * HCG, Qualitative, Urine (04/15/2025 11:04 AM EDT) Urine NEGATIVE NEGATIVE [facility] Comment:This test was develo ped to detect early . Falsenegative results may occur after the 5th - 7th week ofpregnancy when using this test method. If clinicallyindicated, consider a serum hCG. 04/15/2025 11:0 4 AM EDT 04/15/2025 11:08 AM EDT us Generic External Data Provider LAB URINE ORDERAB LES Final Result [facility] [address] [place] [address] [phone] * (ABNORMAL) Comprehensive Metabolic Panel (04/15/2025 11:04 AM EDT) Pathologist [facility] Sodium 141 135 - 145 mmol/L [facility] Potassium 4.3 3.3 - 5.1 mmol/L [facility] Chloride 104 96 - 108 mmol/L [facility] Carbon Dioxide 28 22 - 29 mmol/L [facility] Anion Gap 13 12 - 20 [facility] Urea Nitrogen (BUN) 8(L) 9 - 16 mg/dL [facility] Creatinine, Serum 0.60 0.5 - 1.4 mg/dL [facility] Creatinine Clr Calc Pharmacy 153.9 [facility] Comment:Provided height and weight: 165.1 cm,95.5 kg.eGFR (calculated from the MDRD study equation) and eCrCl(calculated from the Cockcroft-Gault equation) are based ondifferent parameters and may not yield comparable results.If eCrCl result is absurd, please check patient'sheight/weight. Estimated Glomerular Filt Rate >60 [facility] Comment:Chronic Kidney Disea se: Estimated GFR < 60 mL/min/1.79r2Hxwkhl Kidney Disease: Estimated GFR < 15 mL/min/1.73m2 Glucose 102 60 - 115 mg/dL [facility] Calcium 9.2 8.4 - 10.2 mg/dL [facility] Bilirubin, Total 0.4 0.0 - 1.0 mg/dL [facility] Aspartate Amino Transferase 19 5 - 31 U/L [facility] Alanine Aminotransferase 20 0 - 31 U/L [facility] Total Protein 7.0 6.5 - 8.0 g/dL [facility] Albumin Level 4.6 3.5 - 5.0 g/dL [facility] Alkaline Phosphatase 80 39 - 117 U/L [facility] 04/15/2025 11:0 4 AM EDT 04/15/2025 11:08 AM EDT us Generic External Data Provider LAB BLOOD ORDERAB LES Final Result Performing Organization Address City/State/[facility] Co de Phone Number [facility] [address] [place] [phone] * XR Chest 2 Views (04/15/2025 10:33 AM EDT) Anatomical Region Laterality Modality Chest Radiographic Alyse ging 04/15/2025 10:3 3 AM EDT Narrative 04/15/2025 11:38 AM EDT [address] [address] XRay Report Signed Patient: Brooklyn Naylor MR#: [id number] : 1995 Acct:[id number] Age/Sex: 30 / F ADM Date: 04/15/25 Loc: .ED Attending Dr: Ordering Physician: Generic ED Physician Date of Service: 04/15/25 Procedure(s): XR chest 2V Accession Number(s): [id number] cc: [facility] ED Physician; [facility] EXAMINATION: XR CHEST 2 VIEWS HISTORY: sob [...] 04/15/25 1134 DD/ 1033 TD/TT: 04/15/25 1131 Manager Government: Procedure Note Donotuseinterpreter, Image - 04/15/2025 [place] [address] XRay Report Signed Patient: Brooklyn NaylorMR#: [id number] : 1995Acct:[id number] Age/Sex: 30 / FADM Date: 04/15/25 Loc: .ED Attending Dr: Ordering Physician: Generic ED Physician Date of Service: 04/15/25 Procedure(s): XR chest 2V Accession Number(s): [id number] cc: [facility] ED Physician; [facility] EXAMINATION: XR CHEST 2 VIEWS HISTORY: sob [...] 04/15/25 1134 DD/ 1033 TD/TT: 04/15/25 1131 Manager Government: [facility] External Provider IMG XR PROCEDURES Final Result * Hepatitis C Ab (10/09/2024 1:47 PM EST) Hepatitis C Antibody Nonreactive Nonreactive [facility] Comment:Antibodies to HCV no t detected; does not exclude early acuteHCV infection. 10/09/2024 1:47 PM EST 10/09/2024 4:09 PM EST us Generic External Data Provider LAB BLOOD ORDERAB LES Final Result Performing Organization Address [place]/ZIP Co de Phone Number [facility] [address] [place] [address] [phone] * HIV-1/2 Antigen and Antibodies, Fourth Generation, with Reflexes (10/09/2024 1:47 PM EST) [facility] HIV AB/AG Nonreactive Nonreactive [facility] Comment:HIV-1 p24 Ag and/or HIV-1/HIV-2 Ab not detected.A test result that is nonreactive does not exclude thepossibility of exposure to or infection with HIV-1 and/orHIV-2. Nonreactive results in this assay for individualswith prior exposure to HIV-1 and/or HIV-2 may be due toantigen and antibody levels that are below the limit ofdetection of this assay.The [facility] HIV Ag/Ab Combo assay result andsupplemental assay results should be interpreted inconjunction with the patient's clinical presentation,history and other laboratory results. If the results areinconsistent with clinical evidence, additional testing issuggested to confirm the result. 10/09/2024 1:47 PM EST 10/09/2024 4:09 PM EST us Generic External Data Provider LAB BLOOD ORDERAB LES Final Result Performing Organization Address [place]/ZIP Co de Phone Number [facility] [address] [place] [address] [phone] from Last 3 Months or Most Recently Relevant to Health Maintenance Insurance * Guarantor: Brooklyn Naylor Account Type Relation to Patient Date of Phone Billing Address Personal/Family Self [address] [place] [address] [facility] C3 Care Teams Train Driver Relationship Specialty Start Date End Date Monse Ellington NP [address] [place] [address] PCP - General Family Medicine 06/06/23
--- OUTSIDE RECORDS SUMMARY | 2025-07-02 15:28 | XMS_ITS | Clinical Summary ---
Author Organization [facility] Address [address] [place] [phone] Phone Care Team Providers Care Barrel Dedenting Machine Operator Name Role Phone Unavailable Primary Care Provider [...] of 2 - 13+ 2-dose series) 2006 HPV Vaccines (1 - 3-dose SCDM series) 01/07/2020 Influenza Vaccines (#1) 2025 COVID-19 Vaccine (1 - 2025-26 season) 2025 Hepatitis B Vaccines Completed 1995, 1995, 1995 [...]
--- OUTSIDE RECORDS SUMMARY | 2025-07-02 15:28 | XMS_ITS | Encounter Summary ---
Author Organization [employer] Address [address] [facility] 7t [place] [address] Care Team Providers Care Research Home Economist Name Role Phone Monse Ellington NP Primary Care Provider [phone] Reason for Visit * Reason Onset Date Comments No Show 07/01/2025 Pt no show for s ick on site Encounter Details Date Type Department Care Team ([facility] st Contact Info) Description 07/01/2025 Telephone [facility] MEDICINE [address] [place] [address] Monse Ellington NP [address] [place] [address] No Show (Pt no show for sick on site ) Social History Tobacco Use Types Packs/Day Years [...] Telephone Encounter - Melissa Ruiz RN - 07/01/2025 3:48 PM EDT TC placed to pt for status check and to reschedule sick on site PRN. Pt reports their children ended up getting sick so they needed to bring them to the doctor and ended up missing appointment with PCP for sick on site. Pt would like to be rescheduled for appointment. [facility] at 9:00 AM. Pt agreeable to appointment and denies questions at this time. * Telephone Encounter - Christin Cruz - 07/01/2025 11:39 AM EDT Pt no show for sick on site documented in this encounter Plan of Treatment Not on file documented as of this encounter Visit Diagnoses Not on filedocumented in this encounter Additional Health Concerns Assessment Noted Time PHQ-9 Depression Total Score: 0 08/20/20 24 2:29 PM EST documented as of this encounter Care Teams Research Home Economist Relationship Specialty Start Date End Date Monse Ellington NP [address] [place] [address] PCP - General Family Medicine 06/06/23 documented as of this encounter
== END 2025-07-02 15:19 | disposition home or self-care (01) ==
LOC: HO.US 15:18
PROVIDERS: Visit Provider Registered Nurse
DX: O26.891 Other specified pregnancy related conditions, first trimester (principal); R60.0 Localized edema; Z3A.09 9 weeks gestation of pregnancy
CPT/HCPCS: 93971

== ENCOUNTER → 2025-07-02 15:43 | Outpatient (BNV) | payer MEDICAID, SELFPAY | PROVIDERS: Visit Provider Radiology Diagnostic Radiology | DX: R22.41 Localized swelling, mass and lump, right lower limb (principal) | CPT/HCPCS: 93971 ==